=== PATIENT | male | born 1935 | race Caucasian/White ===

== ENCOUNTER 2023-11-22 14:56 | Inpatient (IN) | payer MEDICARE, SELFPAY ==
[2023-11-22] VITALS (37 sets, daily range): BP systolic 87–123; BP diastolic 51–67; BMI 25.8
[2023-11-22 10:19] LABS: Glucose - Point of Care 113 mg/dl (70-99)
[2023-11-22] MEDS: NSS 245 ML IV (10:28)
[2023-11-22] MEDS: LOW STRENGTH ASPIRIN 81 MG PO (10:29)
[2023-11-22] MEDS: PLAVIX 75 MG PO (10:29)
--- NOTE | 2023-11-22 10:55 | W.PN.CARDCBS ---
Today's Communication / Plan
-
LHC +/- PCI today
Impression / Plan
-
This is a summary, see scanned H&P
PCP: Ralf Richardson MD
CDY: Alejo Thomas MD
88 yo WM h/o CAD/CABG remote and PCI x3, HTN, HLD, IDDM, mild-mod , prostate cancer presented to [facility] 11/15 with acute angina, positive troponin. Echo with preserved EF and inferior basal WMA. He had cath 11/17 Dr. Cope with severe ISR LM stent into
left circ, and 80% stenosis at touchdown of RUBI-LAD. He is being transferred today for high risk PCI.
Impression/Plan:
#NSTEMI/CAD - cath with ISR LM stent into LCx and RUBI-LAD with 80% touchdown stenosis, [facility] today +/- PCI/shockwave
DAPT ASA/Plavix continued from home, continue BB, ARB
Cardiac rehab c/s after if PCI
f/u Martha 2-4 weeks
#HTN - continue losartan, toprol
#Dyslipidemia - LDL 33 continue atorvastatin 40mg
#IDDM - Check a1c, continue home insulin and add SSI
#LACEY - resolved Cr 1.4 on arrival, improved to 1.1 after IV hydration, monitor trends post cath
#Prostate Cancer
#L eye blindness
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
Progress Note - Box Office Attendant
Subjective
Date of Service: November 22, 2023
denies cp, sob
Objective
Vital Signs and I&O:
Vital Signs
Temp Pulse Resp BP Pulse Ox
97.4 F 83 19 123/65 100
11/22/23 10:23 11/22/23 10:37 11/22/23 10:23 11/22/23 10:23 08/23/24 10:23
Vital Signs
Temp Pulse Resp BP Pulse Ox
97.4 F 83 19 123/65 100
11/22/23 10:23 11/22/23 10:37 11/22/23 10:23 11/22/23 10:23 11/22/23 10:23
Intake & Output
11/20/23 11/21/23 11/22/23 11/23/23
06:59 06:59 06:59 06:59
Intake Total 245 / 245
Balance 245 / 245
Physical Exam
Physical Exam
NAD, AOX3
S1, S2, RRR, II/ NAOMI
CTAB, non labored
SNTND bsx4
[2023-11-22 13:24] LABS: ACT-LR - POC 313 Seconds (116-155)
[2023-11-22 14:11] LABS: ACT-LR - POC 223 Seconds (116-155)
--- NOTE | 2023-11-22 14:35 | ITS.CL.ANGIO ---
Loaf Counter - Angioplasty
Angioplasty
Procedure Report:
CORONARY ANGIOPLASTY REPORT
Date of Procedure: 11/22/2023
Referring: Jonathon Cope MD
Indication: Multivessel restenosis 6 months following complex multivessel PCI
�
PROCEDURE SUMMARY:
1. Angioplasty with intravascular lithotripsy (shockwave) of left main and proximal circumflex using 3.0 x 12 shockwave balloon-the patient would only tolerate 3 treatments and the shockwave balloon could not be advanced through the entirety of the
diseased segment
2. Multiple balloon angioplasties of the proximal circumflex and distal left main including 2.0, 2.5 noncompliant, 2.75 noncompliant, 2.75 compliant, 3.0 noncompliant and 3.25 noncompliant balloon inflations
3. No attempt was made to stent this lesion. The 95% in-stent stenosis was reduced to 30-40% with balloon angioplasty and we were not able to completely treat the entire lesion effectively with shockwave IVL and therefore terminated the procedure
�
DESCRIPTION OF PROCEDURE: Access was obtained via micropuncture technique in the right femoral artery on the first attempt. A 6 Serbian sheath was placed. A 6 Serbian AL 2 guide catheter was advanced to the left coronary ostium where provided good
backup support. A short BMW wire was advanced with great difficulty through the distal left main/ostial circumflex disease and positioned in the second obtuse marginal branch. A 2.0 x 15 Euphora balloon was passed to the target location and
inflated to 14 shagufta. With each balloon inflation the patient became hypotensive requiring multiple doses of phenylephrine 100 mcg / 200 mcg. We then dilated the lesion with a 2.75 x 12 NC Euphora to 14 shagufta over the entire diseased segment. We
attempted to advance a shockwave balloon to the target location but it would not pass through the entire area of circumflex disease. This balloon was carefully removed and a guide liner was placed. A 3.0 x 8 NC Euphora was advanced and inflated to
14 shagufta. We made numerous attempts to advance the 6 Serbian guide liner into the circumflex but it would only advance to the origin of the circumflex even with a balloon inflated more distally. We then inflated a 3.25 x 8 NC Euphora to 10 shagufta and
again attempted to get the guide liner distally into the circumflex. This was not possible. The shockwave balloon was then advanced and a series of 3 treatments with 10 pulses was accomplished treating the proximal three quarters of the lesion.
The patient became markedly hypotensive with each inflation requiring phenylephrine and ultimately dopamine infusion. Further treatment with the 3.25 x 15 NC Euphora to 15 shagufta was accomplished. We were again frustrated with an inability to pass
the guide liner through the entirety of the lesion. A more supportive extrasport wire was advanced into the vessel and positioned in the mid circumflex. A 2.75 x 12 Euphora balloon was then brought in to the circumflex and inflated with the hope
that this would allow us to bring the guide liner into the mid circumflex. This was not possible. At this point it was clear that we would not be able to treat the entirety of the lesion with shockwave and therefore we made no attempt to place a
stent to the lesion. The final angiographic result was quite reasonable with 30-40% residual stenosis with normal antegrade flow in the circumflex and also in the LAD. The patient remained hypotensive and required amiodarone for a tachycardia
which appeared to be some sort of supraventricular tachycardia. Ultimately following amiodarone 150 mg his rate slowed from 145 down to about 115 and it appeared at this point that he was in atrial fibrillation. The procedure was terminated and
continued pressor support was needed with phenylephrine infusion. He will be transferred to the ICU for medical care.
�
ANTI-COAGULATION THERAPY
1:�Heparin 8000 units total
�
Closure Device Used: 6 Serbian Angio-Seal RFA
�
Radiation (mGy): 674
DAP (cm2.Gy): 58
Fluoroscopy time: 22 minutes
�
CONCLUSIONS: Successful angioplasty and partially successful treatment with shockwave IVL reducing distal left main/ostial circumflex stenosis from 95% to 30-40% severity. No attempt was made to place a stent as we were unable to treat the entirety
of the lesion with shockwave IVL.. Procedure complicated by hypotension with each balloon inflation and development of tachycardia most likely A-fib or a flutter. He required pressor support and amiodarone 150 mg for rate slowing. He will be
transferred to the ICU in guarded condition. If he is medically stable I would plan to treat his touchdown RUBI-LAD lesion with PCI in 72 hours. If he develops recurrent restenosis of the ostial circumflex location, consider Impella support for
intervention and a 7 or 8 Serbian system to maximize backup support
�
Copy to: Jonathon Cope MD, Britta Richardson MD
�
Valdez Mathis MD, [facility], [facility]
�
--- NOTE | 2023-11-22 14:38 | CON.INTV ---
Consultation
Consultation Request
Date/Time Consultation Requested: 11/22/2023 - 1428
Date/Time Consultation Performed: 11/22/2023 - 1435
Requesting Provider: AFUA Carter
Performing Provider: Alex Kirk MD
Reason for Consultation: Shock on vasopressors/NSTEMI
Medical History
-
Chief Complaint: Chest pain
History of Present Illness:
88-year-old male non-smoker with past medical history of CAD s/p CABG with history of PCI x 3, DM type II, hypertension/hyperlipidemia, aortic stenosis, GERD and non-melanoma skin cancer who presents as a transfer from [facility] for
high risk PCI. He initially presented to [facility] on 11/15 with acute angina and found to have elevated troponin. Echo reportedly showed preserved LVEF with inferior basal wall motion and valves. C on 11/17 showed severe ISR of previous left main
stent into left circumflex with 80% stenosis at the touchdown of RUBI�LAD bypass. He was transferred here for high risk PCI, with angioplasty with intravascular lithotripsy; unfortunately multiple balloon angioplasties were performed and the
proximal circumflex + distal left main were noncompliant. No attempt was made to stent the lesion however the 95% in-stent stenosis was reduced to 30-40%. He remained tachycardic and hypotensive and Natan-Synephrine drip was started. He also
developed atrial tachycardia and amiodarone 150 mg was given. Patient was transferred to the CVICU for further care and critical care services consulted for additional management/recommendations.
When I saw the patient he was resting in bed in no acute distress, sleepy but answering all questions appropriately and easily arousable to voice. He is currently in A-fib with RVR with heart rate 128, saturating 89% on room air which improved to
97% with 4 L/min nasal cannula. BP 95/57 on Natan-Synephrine at 60mcg/min. He still has some chest discomfort with right arm pain although his chest pain is improving. He denies SOB, CAMACHO, abdominal pain, nausea, back pain, fevers or chills.
Of note, patient known to [facility] cardiology service with Dr. Gu. Last office visit on 10/02/2023 due to CAD with history of DM type II, hypertension, hyperlipidemia and aortic stenosis (mild). Next office visit planned for 6
months.
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
PSHx: CABG (2007 � [facility])
Past Medical History
Past Medical History: Other (Above as per HPI)
Past Surgical History: Other (Above as per HPI)
Social History
Tobacco: Non-smoker
Alcohol: Occasional
Drug: None
Living: With Family (Daughter, son-in-law + granddaughter)
Family History
Family History: Reviewed & Not Pertinent
Allergies / Home Medications
Allergies
Allergy/AdvReac Type Severity Reaction Status Date / Time
nitrofurantoin Allergy Unknown Verified 11/22/23 09:50
pollen extracts Allergy Unknown Verified 11/22/23 09:50
Home Medications
�Medication �Instructions �Recorded �Confirmed �Last Taken �Type
acetaminophen 325 mg tablet 650 mg PO Q6H PRN pain 11/22/23 11/22/23 11/22/23 08:00 History
(Tylenol)
aspirin 81 mg capsule 81 mg PO DAILY 11/22/23 11/22/23 Unknown History
atorvastatin 40 mg tablet 40 mg PO DAILY 11/22/23 11/22/23 Unknown History
clopidogrel 75 mg tablet 75 mg PO DAILY 11/22/23 11/22/23 Unknown History
insulin aspart U-100 100 unit/mL 25 - 30 unit SC AC 11/22/23 11/22/23 Unknown History
(3 mL) subcutaneous pen (Novolog
FlexPen U-100 Insulin aspart)
insulin degludec 100 unit/mL (3 15 unit SC HS 11/22/23 11/22/23 Unknown History
mL) subcutaneous pen (Tresiba
FlexTouch U-100 insulin)
losartan 25 mg tablet 12.5 mg PO DAILY 11/22/23 11/22/23 Unknown History
metoprolol succinate 50 mg 50 mg PO DAILY 11/22/23 11/22/23 Unknown History
tablet,extended release 24 hr
(Toprol XL)
multivitamin 1 tab PO DAILY 11/22/23 11/22/23 Unknown History
pantoprazole 20 mg tablet,delayed 20 mg PO DAILY 11/22/23 11/22/23 Unknown History
release
Review of Systems
-
History Source: Patient
All other systems: Negative unless noted
Vitals / Labs / Diagnostic Testing
Vital Signs
Temp Pulse Resp BP Pulse Ox
97.4 F 83 19 123/65 100
11/22/23 10:23 11/22/23 10:37 11/22/23 10:23 11/22/23 10:23 11/22/23 10:23
Diagnostic Testing:
Physical Exam
-
HEENT: Normocephalic and Anicteric
Cardiovascular: Irregular Rhythm (Irregularly irregular), Peripheral Edema (Negative) and Other (Tachycardic)
Respiratory: Wheeze (Negative), Rales (Bilateral anterior lung pratt (L >R)), Rhonchi (Negative) and Non-Labored Respirations
GI: Soft, Non Distended, Non Tender and Normal Bowel Sounds
Neurology: Tremors (Negative) and Other (Lethargic but easily arousable to voice and answering all questions appropriate)
Skin: Warm and Dry
General: Respiratory Distress (Negative), Comfortable, Fever (Negative), Chills (Negative) and Sweats (Negative)
Assessment
-
Assessment: 88-year-old M non-smoker with a PMHx CAD s/p CABG with history of PCI x 3, DM type II, HTN/HLD, mild aortic stenosis, GERD and non-melanoma skin cancer who presents as a transfer from [facility] for high risk PCI. He
initially presented to [facility] on 11/15 with acute angina and found to have elevated troponin. Echo reportedly showed preserved LVEF with inferior basal wall motion and valves. [facility] on 11/17 showed severe ISR of previous left main stent into left
circumflex with 80% stenosis at the touchdown of RUBI�LAD bypass. He was transferred here for high risk PCI, with IV-shockwave therapy + balloon angioplasty. Stent placement not attempted, and he was tachycardic and hypotensive with Natan-Synephrine
drip started and given amiodarone 150mg. Patient transferred to CVICU for further care and critical care services consulted for additional management/recommendations.
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
Impression:
#NSTEMI with inferobasal wall motion abnormalities s/p [facility] on 11/18/2023 with severe in-stent restenosis of LM-stent into left circumflex and 80% stenosis at touchdown of RUBI�LAD bypass --> unsuccessful PCI today
#Tachyarrhythmia due to new onset atrial fibrillation with RVR
#Acute respiratory failure with hypoxia on supplemental oxygen suspected to be from acute decompensated heart failure
#MV-CAD s/p CABG with Hx of PCI x3
#GERD
#DM type II
#Hypertension
#Hyperlipidemia
#Mild aortic stenosis
#CKD
Plan:
- Continue vasopressors with Natan-Synephrine maintaining MAP >65
- Continue supplemental oxygen and titrate to maintain SpO2 >94%
- Cardiology on board --> recs appreciated
- DAPT with ASA + plavix; continue high intensity statin with goal LDL <70
- Start heparin gtt
- Check stat labs including CBC, CMP, Mg, PO4, troponin and lactate
- Start amiodarone infusion with goal HR<110
- Check stat CXR to assess lung parenchyma
- if pt volume overloaded then keep net negative fluid balance as tolerated
- Replete electrolytes with K>4, Mg>2
- Maintain euglycemia with goal BG 140-180 with ISS + lantus (half the dose of lantus unless starts ADA diet)
- Check TTE
- prn nebulized bronchodilators - not currently bronchospastic
- Incentive spirometer encouraged
- Continue PPI (home med)
- DVT ppx
Critical care statement: A total of 40 minutes of critical care time was provided for this patient today. This includes management of unstable vital signs, evaluation of the patient at bedside, reviewing the patient's pertinent medical records
including radiographs, microbiology, laboratory evaluations, and discussion with primary team, consultants, pharmacy, nutrition, physical therapy, case management, charge nurse, critical care nursing, and respiratory therapy.
[2023-11-22 15:31] LABS: Hematocrit 33.8 % (39.0-52.0); Hemoglobin 11.8 g/dL (13.0-18.0); Mean Corp Hgb Conc. 34.9 g/dL (33.0-37.0); Mean Corpuscular Hgb 33.6 pg (27.0-31.0); Mean Corpuscular Volume 96.3 fL (80.0-94.0); Platelet Count 161 10^3/uL (130-400); Red Blood Cell Count 3.51 10^6/uL (4.70-6.10); Red Cell Dist. Width 13.6 % (11.5-14.5); White Blood Cell Count 9.6 10^3/uL (4.8-10.8)
[2023-11-22 15:41] LABS: INR 1.45; PT 17.5 Sec (11.4-14.6)
--- NOTE | 2023-11-22 15:45 | PTCARENOTE ---
Addendum entered by Desi Mijares RN 11/22/23 17:17:
KAREN Kovacs at bedside, pt states CP 6/10, burning. pt states 'better than before'. per Sissy Kovacs, report if CP worsens. no new orders at this time.
Original Note:
pt report received from [facility], arrived to [facility] @~1450. oriented x4, drowsy, arousable to voice. pt blind in L eye. +glasses. A-fib on the monitor, HR 110-130s. EKG performed, KAREN Kovacs aware. SBP 80-100s. Natan gtt running as ordered. Doppler pedal
pulses. pt 89% on RA, 97% POX on 2LNC. crackles anteriorly, L>R. pt abdomen s/n, denies n/v. R groin dressing c/d/i, no s/s of bleeding or hematoma. skin dry, flaky. ecchymotic LUE. PIV x2. VAT team called to place IV for Amiodarone bolus and gtt.
see worklist for VS, I&O, and assessment.
--- NOTE | 2023-11-22 15:46 | CM ---
pricehilary phipps at [facility]- his copay is $30/month- it is in stock
[2023-11-22 15:50] LABS: Lactic Acid 1.4 mmol/L (0.7-2.0)
[2023-11-22 16:02] LABS: APTT > 200 Sec (23.4-35.0)
[2023-11-22 16:08] LABS: ALT (SGPT) 38 U/L (0-50); AST (SGOT) 60 U/L (17-59); Albumin 3.4 g/dl (3.5-5.0); Alkaline Phosphatase 157 U/L (38-126); Blood Urea Nitrogen 22 mg/dl (9-20); Calcium 8.3 mg/dl (8.4-10.2); Carbon Dioxide 21 mmol/L (22-30); Chloride 106 mmol/L (98-107); Estimated Creatinine Clearance 46 ml/min; Glucose 138 mg/dl (70-99); Magnesium 1.5 mg/dl (1.6-2.3); Sodium 139 mmol/L (135-145); Total Bilirubin 1.2 mg/dl (0.2-1.3); Total Protein 6.1 g/dl (6.3-8.2); eGFR 58.89
[2023-11-22] MEDS: NOVOLOG FLEXPEN-MODERATE RESISTANCE SC (16:09)
[2023-11-22] MEDS: CORDARONE 103 MG IV (16:09)
[2023-11-22] MEDS: CORDARONE 518 MG IV (16:28)
--- NOTE | 2023-11-22 16:28 | CM ---
spoke to pt in room, he is prev indep, lives with his daughter in a split level home with a first floor set up and no steps to enter. he has a cane to use if needed. plan is for dc to home when medically stable.
--- NOTE | 2023-11-22 17:14 | PTCARENOTE ---
Addendum entered by Desi Mijares RN 11/22/23 17:18:
EKG performed on SR.
Original Note:
Amiodarone bolus given, pt converted to SR w/ occ PVCs @1612, SILVER BUFFER Fermín. Amiodarone gtt running as ordered. daughter Reyna at bedside, pt ring given to Reyna to take home. pt remains on bedrest.
[2023-11-22] MEDS: MAGNESIUM OXIDE 500 MG PO (17:37)
[2023-11-22] MEDS: LIPITOR 40 MG PO (17:37)
--- NOTE | 2023-11-22 19:17 | PTCARENOTE ---
pt bladder scanned for 1103ml, pt unable to void in urinal. per orders, pt straight cath'd for 950ml jacqui urine. Amiodarone gtt off per Dr. Mathis.
--- NOTE | 2023-11-22 20:00 | PTCARENOTE ---
Received pt from [facility]; pt resting comfortably in bed, AAOx4 but sleepy; pt denies pain; NSR with PVCs on monitor, VSS; heart sounds audible, radial pulses palpable, DP pulse audible by doppler; b/l anterior crackles present, spo2 99% on 2 LNC;
+bs x4 quadrants, abdomen soft non tender; pt was straight cathed by [facility] @ 1840, will continue to bladder scan; left arm ecchymotic, sacral dressing clean dry, and intact, right femoral groin cath site dressing clean, dry, and intact. PIV
maintained; phenylephrine gtt infusing, amiodarone gtt turned of per dr Mathis. call castañeda within reach, will continue to monitor.
--- NOTE | 2023-11-22 20:10 | PTCARENOTE ---
Pt had 9 beat run of VT @ 1945. call center receptionist [facility] general maintenance engineer was notified.
[2023-11-22] MEDS: LANTUS 0.15 UNITS SC (21:46)
[2023-11-22 21:47] LABS: Glucose - Point of Care 148 mg/dl (70-99)
[2023-11-22 21:50] LABS: APTT 32.5 Sec (23.4-35.0)
[2023-11-23] VITALS (59 sets, daily range): BP systolic 87–109; BP diastolic 46–81; BMI 24.9
--- NOTE | 2023-11-23 | PTCARENOTE ---
Pt assessment unchanged. NSR on monitor with frequent PVCs, VSS. Phenylephrine gtt is being wean, currently at 30mch/min. Pt unable to void. Bladder scanned for 441mls, straight cathed for 400mls. Pt continues to deny pain. Call castañeda within reach.
Will continue to monitor.
[2023-11-23] MEDS: NEO-SYNEPHRINE 250 IV (03:02)
[2023-11-23 03:33] LABS: Hematocrit 31.3 % (39.0-52.0); Hemoglobin 11.2 g/dL (13.0-18.0); Mean Corp Hgb Conc. 35.8 g/dL (33.0-37.0); Mean Corpuscular Volume 97.8 fL (80.0-94.0); Mean Platelet Volume 10.5 fL (7.4-10.4); Platelet Count 150 10^3/uL (130-400); Red Cell Dist. Width 13.4 % (11.5-14.5); White Blood Cell Count 7.8 10^3/uL (4.8-10.8)
[2023-11-23 03:56] LABS: ALT (SGPT) 68 U/L (0-50); AST (SGOT) 456 U/L (17-59); Albumin 2.8 g/dl (3.5-5.0); Alkaline Phosphatase 127 U/L (38-126); Blood Urea Nitrogen 24 mg/dl (9-20); Calcium 8.3 mg/dl (8.4-10.2); Carbon Dioxide 18 mmol/L (22-30); Chloride 104 mmol/L (98-107); Direct Bilirubin 0.6 mg/dl (0.0-0.4); Estimated Creatinine Clearance 55 ml/min; Glucose 284 mg/dl (70-99); HDL Cholesterol 34 mg/dl; LDL Cholesterol, Calculated 31 mg/dl; Magnesium 1.6 mg/dl (1.6-2.3); Phosphorus 4.1 mg/dl (2.5-4.5); Potassium 4.1 mmol/L (3.5-5.1); Sodium 134 mmol/L (135-145); Total Bilirubin 1.4 mg/dl (0.2-1.3); Total Cholesterol 83 mg/dl (50-199); Total Protein 5.2 g/dl (6.3-8.2); Triglyceride 93 mg/dl (10-149); Very Low Density Lipoprotein 18 mg/dl (0-30); eGFR > 60.00
--- NOTE | 2023-11-23 04:00 | PTCARENOTE ---
Pt assessment unchanged. NSR on monitor, VSS. pt resting comfortably in bed. AM labs drawn and sent. EKG done. Episode of VT @ 0044, technical solutions director CBC cards doctor made aware. Amiodarone gtt restarted. call castañeda within reach. will continue to monitor.
[2023-11-23 04:05] LABS: NT-proBNP 8900 pg/ml
--- NOTE | 2023-11-23 05:00 | PTCARENOTE ---
Pt bladder scanned @ 0500 for 204mls of urine. pt has no urge to void. will continue to monitor.
--- NOTE | 2023-11-23 08:02 | W.PN.INTV ---
Today's Communication / Plan
Recommendations
Up OOB as tolerated
Maintain net negative fluid balance as tolerated
Continue DAPT
Repeat high risk PCI as per cardiology
Continue with PO amio
Patient now off of vasopressors since this morning. Downgrade to IVU if patient remains hemodynamically stable off vasopressors by later this evening. Once downgraded then we will sign off.
Assessment
-
Assessment: 88-year-old M non-smoker with a PMHx CAD s/p CABG with history of PCI x 3, DM type II, HTN/HLD, mild aortic stenosis, GERD and non-melanoma skin cancer who presents as a transfer from [facility] for high risk PCI. He
initially presented to [facility] on 11/15 with acute angina and found to have elevated troponin. Echo reportedly showed preserved LVEF with inferior basal wall motion and valves. [facility] on 11/17 showed severe ISR of previous left main stent into left
circumflex with 80% stenosis at the touchdown of RUBI�LAD bypass. He was transferred here for high risk PCI, with IV-shockwave therapy + balloon angioplasty. Stent placement not attempted, and he was tachycardic and hypotensive with Natan-Synephrine
drip started and given amiodarone 150mg. Patient transferred to CVICU for further care and critical care services consulted for additional management/recommendations.
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
Impression:
#NSTEMI with inferobasal wall motion abnormalities s/p [facility] on 11/18/2023 with severe in-stent restenosis of LM-stent into left circumflex and 80% stenosis at touchdown of RUBI�LAD bypass --> unsuccessful PCI on 11/22/2023
#Tachyarrhythmia due to new onset atrial fibrillation with RVR - now rate controlled
#Acute respiratory failure with hypoxia suspected to be from acute decompensated heart failure --> improved as he is now on room air
#Acute HFrEF with global hypokinesis (seen on TTE from 11/22/2023)
#Transaminitis
#Elevated troponin due to NSTEMI in the setting of recent coronary intervention
#MV-CAD s/p CABG with Hx of PCI x3
#GERD
#DM type II
#Hypertension
#Hyperlipidemia
#Mild aortic stenosis
#CKD
Plan:
- Vasopressors have successfully weaned off as of this morning
- Keep MAP >65
- He is also on room air; maintain SpO2 >94%
- Cardiology on board --> recs appreciated
- DAPT with ASA + plavix; continue high intensity statin with goal LDL <70
- he is now off heparin gtt
- Continue PO amio with goal HR<110
- Keep net negative fluid balance as tolerated
- Replete electrolytes with K>4, Mg>2
- Maintain euglycemia with goal BG 140-180 with ISS + lantus (half the dose of lantus unless starts ADA diet)
- prn nebulized bronchodilators - not currently bronchospastic
- Incentive spirometer encouraged
- Continue PPI (home med)
- DVT ppx
If patient remains hemodynamically stable later this evening, downgrade out of CVICU to to IVU level of care. This will be confirmed by cardiology service. If patient remains CVICU status then we will continue to follow. Once downgraded then we
will sign off. Please call back if there are any additional questions or concerns.
Total time spent today was 75 minutes for this encounter. Time includes reviewing laboratory test/imaging results, reviewing pertinent medical records, obtaining and reviewing medical history, performing an appropriate exam, ordering medications,
tests and procedures. Time also includes documentation of this encounter, coordinating patient care and communicating with other healthcare professionals. Total time does not include separately billed tests performed on this date of service.
Subjective Dataa
Subjective Data
Date of Service:
Date of Service: November 23, 2023
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
Subjective:
Patient seen and evaluated today at bedside. Weaned off Natan-Synephrine this morning at around 930. Currently BP is 91/51, heart rate 96 and saturating 99% on room air. Afebrile overnight. He is resting comfortably in bed in no acute distress.
Review of Systems
General: Other (Negative unless mentioned above)
Objective Data
Data Reviewed
Vital Signs / I&O / Oxygen:
Vital Signs
Temp Pulse Resp BP Pulse Ox
98.5 F 85 23 100/51 100
11/23/23 09:39 11/23/23 09:30 11/23/23 09:30 11/23/23 09:30 11/23/23 09:30
Intake and Output
11/22/23 11/23/23 11/24/23
06:59 06:59 06:59
Intake Total 1208.0 / 1208.0 25.7 / 25.7
Output Total 1350 / 1350
Balance -142.0 / -142.0 25.7 / 25.7
SaO2 100
Nasal Cannula flow liters per 2
minute
Physical Exam
General: Respiratory Distress (negative), Fever (negative), Chills (negative) and Sweats (negative)
HEENT: Normocephalic and Anicteric
Cardiovascular: Irregular Rhythm (Irregularly irregular) and Peripheral Edema (negative)
Respiratory: Wheeze (negative), Crackles (Anterior lung pratt bilaterally (L >R)), Rhonchi (negative) and Non-Labored Respirations
GI: Soft, Non Distended, Non Tender and Normal Bowel Sounds
Neurology: Tremors (negative) and Other (Sleeping but easily arousable and answering all questions appropriately)
Skin: Warm, Dry and Jaundice (negative)
Labs/Micro/Reports
Lab Data
11/23/23 03:22
11/23/23 03:22
Laboratory Results
11/22/23 11/22/23
15:19 21:24
PT 17.5 H
INR 1.45
APTT > 200 H* 32.5
--- NOTE | 2023-11-23 08:30 | PTCARENOTE ---
Assumed care of patient at 0700. Pt is awake, alert, and oriented. No complaints of pain. Pt remains SR with HR 80's. BP 93/54 MAP 67. Pulse oximetry 99% on 2L nasal cannula. Pt having ongoing urinary retention. Right groin site CDI. Pedal pulses
present with Doppler. Pt remains on Natan at 30mcg/min and amio at 0.5mg/min.
[2023-11-23] MEDS: PROTONIX 20 MG PO (09:26)
[2023-11-23] MEDS: PLAVIX 75 MG PO (09:26)
[2023-11-23] MEDS: LOW STRENGTH ASPIRIN 81 MG PO (09:27)
--- NOTE | 2023-11-23 09:33 | W.PN.CD ---
Today's Communication / Plan
-
-Weaning of pressors
-On amiodarone drip. Will switch from IV to p.o. today.
-Continue monitoring on the telemetry in CVICU.
-Plan for PCI next week.
Impression / Plan
-
PCP: Ralf Richardson MD
CDY: Alejo Thomas MD
88 yo WM h/o CAD/CABG remote and PCI x3, HTN, HLD, IDDM, mild-mod , prostate cancer presented to [facility] 11/15 with acute angina, positive troponin. Echo with preserved EF and inferior basal WMA. He had cath 11/17 Dr. Cope with severe ISR LM stent into
left circ, and 80% stenosis at touchdown of RUBI-LAD. He is being transferred today for high risk PCI.
Impression/Plan:
#NSTEMI/CAD
- cath with ISR LM stent into LCx and RUBI-LAD with 80% touchdown stenosis,
- s/p PCI/shockwave - 11/22/23
-Successful angioplasty and partially successful treatment with shockwave IVL reducing distal left main/ostial circumflex stenosis from 95% to 30-40% severity
- Hypotensive and stent was not deployed
- plan to treat his touchdown RUBI-LAD lesion with PCI - next week prior to discharge.
- DAPT ASA/Plavix continued from home, continue BB, ARB
- Cardiac rehab c/s after if PCI
- f/u Martha 2-4 weeks
#VT
- NSVT and frequent PVCs noted
- On Amiodarone that was stopped but recurrent VT
- Switch to PO today
- Plan to likely stop after completely revascularized.
#HTN
- Holding losartan, toprol
- On Natan - weaning of
- With ventricular ectopy, we will start metoprolol 25 mg twice daily
#Dyslipidemia
- LDL 31 continue atorvastatin 40mg
#IDDM - Check a1c, continue home insulin and add SSI
#LACEY - resolved Cr 1.4 on arrival, improved to 1.1 after IV hydration, monitor trends post cath
#Prostate Cancer
#L eye blindness
#R toe ulcer - wound care eval at [facility], keep dry and [employer], f/u podiatry as outpt
Physical Exam
Vital Signs/Labs
Vital Signs
Temp Pulse Resp BP Pulse Ox
98.1 F 79 24 92/50 99
11/23/23 04:00 11/23/23 08:00 11/23/23 08:00 11/23/23 05:45 11/23/23 08:00
11/22/23 11/23/23 11/24/23
06:59 06:59 06:59
Actual Weight 78.8 kg
11/23/23 03:22
11/23/23 03:22
PT 17.5 Sec (11.4-14.6) H 11/22/23 15:19
INR 1.45 11/22/23 15:19
APTT 32.5 Sec (23.4-35.0) 11/22/23 21:24
Magnesium 1.6 mg/dl (1.6-2.3) 11/23/23 03:22
Triglycerides 93 mg/dl (10-149) 11/23/23 03:22
LDL Cholesterol, Calc 31 mg/dl 11/23/23 03:22
VLDL Cholesterol, Calc 18 mg/dl (0-30) 11/23/23 03:22
HDL Cholesterol 34 mg/dl 11/23/23 03:22
11/23/23
03:22
Ppc-T-Ivhjifiewsx Pept 8900
LAB Results
11/22/23 11/22/23
15:17 21:24
Troponin I 1.440 H* 21.400 H* D
Physical Exam
Constitutional: No acute distress and Comfortable
EENT: Anicteric and Moist mucous membranes
Cardiovascular: Rhythm & rate is regular, Pedal edema is absent, JVD pressure is normal and Systolic murmur present
Respiratory: Respiratory effort normal, Wheeze Absent and Crackles Absent
GI: Soft, Non tender and Normal bowel sounds
Neuro/Psych: Alert, Oriented and AO x 3
Data Reviewed
-
Date of Service: November 23, 2023
Medical Decision Making: Reviewed Test Results, Independent Historian Assessment and Test Interpretation
EKG: Tracing Personally Visualized and interpreted
Echo: Report Reviewed by me
Labs: Labs Reviewed by me
Old Records: Reviewed
Critical Care Time (in minutes): 61
[2023-11-23] MEDS: PACERONE 200 MG PO ×2 (10:20→19:41)
[2023-11-23] MEDS: NOVOLOG FLEXPEN-MODERATE RESISTANCE 1 UNITS SC ×2 (10:23→18:08)
[2023-11-23 10:26] LABS: Glucose - Point of Care 169 mg/dl (70-99)
[2023-11-23 11:53] LABS: Glycohemoglobin (HgbA1c) 6.7 % (4.0-5.6)
--- NOTE | 2023-11-23 12:00 | PTCARENOTE ---
Amiodarone gtt d/c'd and transitioned to PO amiodarone per order. Natan gtt titrated off at 0930. BP 94/52 MAP 65. Pt with ongoing urinary retention. Morelos catheter now in place per order for acute retention.
--- NOTE | 2023-11-23 16:30 | PTCARENOTE ---
Pt remains off all gtts. Remains SR/ST with HR 80's-100. BP 93/62 MAP 72. Pulse oximetry 98% on room air. No complaints of pain.
[2023-11-23] MEDS: NOVOLOG FLEXPEN-MODERATE RESISTANCE SC (18:03)
[2023-11-23 18:04] LABS: Glucose - Point of Care 190 mg/dl (70-99)
[2023-11-23] MEDS: LIPITOR 40 MG PO (18:04)
--- NOTE | 2023-11-23 20:59 | PTCARENOTE ---
Received pt resting in bed, AAOx3. No complaints at this time. Denies pain. VALADEZ but weak. ST on tele, HR 100-110s. BP 90s/50s. Remains off dianelys gtt. Dr. Zimmerman notified- orders to hold Toprol tonight- will monitor. DP/PT pulses by doppler. R femoral
site dsg c/d/i, soft, nontender. On RA. Spo2 97%. Lungs CTA but dim at bases. Hypoactive bowel sounds. Tolerating diet, ate about 50% of dinner. Quintana cath draining jacqui urine. Small amt. blood from insertion site-cleaned, will monitor. Pt. bathed
with CHG, assisted w/ mouth care, quintana care provided. Call castañeda in reach
[2023-11-23 21:36] LABS: Glucose - Point of Care 300 mg/dl (70-99)
[2023-11-23 21:40] LABS: Glucose - Point of Care 262 mg/dl (70-99)
--- NOTE | 2023-11-23 21:55 | PTCARENOTE ---
BG = 300, recheck = 262. Dr. Zimmerman notified. Order for 4 units novolog now.
Pt. desatting to 88% while sleeping, placed on 2L NC. Now 100%.
[2023-11-23] MEDS: LANTUS 0.15 UNITS SC (22:18)
[2023-11-23] MEDS: NOVOLOG FLEXPEN 4 UNITS SC (22:19)
[2023-11-24] VITALS (21 sets, daily range): BP systolic 86–115; BP diastolic 48–68; PULSE 99–119; O2SAT 97; BMI 25.0
[2023-11-24 05:05] LABS: Hematocrit 28.3 % (39.0-52.0); Mean Corp Hgb Conc. 35.3 g/dL (33.0-37.0); Mean Corpuscular Hgb 34.4 pg (27.0-31.0); Mean Corpuscular Volume 97.3 fL (80.0-94.0); Mean Platelet Volume 10.7 fL (7.4-10.4); Platelet Count 145 10^3/uL (130-400); Red Blood Cell Count 2.91 10^6/uL (4.70-6.10); Red Cell Dist. Width 13.4 % (11.5-14.5); White Blood Cell Count 7.2 10^3/uL (4.8-10.8)
--- NOTE | 2023-11-24 05:15 | PTCARENOTE ---
Assumed care of pt from previous RN ~0130. Initial assessment as documented in work-list. Pt AAOx3. Pt sinus rhythm to sinus tach on the tele monitor. HR 90-100s. BP 80-90s/50-60s. Pt on 2 L NC. POX 100%. Quintana catheter intact and draining yellow
urine. Small amount of blood noted at quintana catheter insertion site. Right femoral groin site CDI. Ordered labs drawn and sent. Pt repositioned in bed. Call castañeda within reach.
--- NOTE | 2023-11-24 05:20 | PTCARENOTE ---
No improvement in L sided weakness with BP control. 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 No repeat CT ordered at this time. Continue to monitor. BP 140s/70s on cardene- titrated to off at this time, will monitor and titrate PRN. Pt. without complaints.
[2023-11-24 05:26] LABS: Blood Urea Nitrogen 29 mg/dl (9-20); Calcium 8.6 mg/dl (8.4-10.2); Carbon Dioxide 21 mmol/L (22-30); Chloride 107 mmol/L (98-107); Estimated Creatinine Clearance 46 ml/min; Glucose 209 mg/dl (70-99); Magnesium 1.9 mg/dl (1.6-2.3); Phosphorus 2.6 mg/dl (2.5-4.5); Potassium 4.4 mmol/L (3.5-5.1); Sodium 136 mmol/L (135-145); eGFR 58.89
[2023-11-24] MEDS: PACERONE 200 MG PO ×2 (07:55→22:13)
[2023-11-24] MEDS: PROTONIX 20 MG PO (07:55)
[2023-11-24] MEDS: PLAVIX 75 MG PO (07:55)
[2023-11-24] MEDS: LOW STRENGTH ASPIRIN 81 MG PO (07:55)
[2023-11-24] MEDS: NOVOLOG FLEXPEN-MODERATE RESISTANCE 3 UNITS SC (07:56)
[2023-11-24 07:58] LABS: Glucose - Point of Care 233 mg/dl (70-99)
--- NOTE | 2023-11-24 08:11 | PTCARENOTE ---
Assumed care of patient at 0700. Pt is awake, alert, and oriented. No complaints of pain. Pt remains SR with HR 90's. BP 95/51 MAP 65. Pulse oximetry 100% on room air. Pt tolerating PO diet. Morelos catheter in place draining yellow urine. Right groin
site remains CDI. Pedal pulses present with Doppler. Pt remains off all gtts at this time. Pt washed faced and brushed teeth this morning. Currently eating breakfast.
--- NOTE | 2023-11-24 08:21 | W.PN.CD ---
Today's Communication / Plan
-
-N.p.o. after midnight.
-Possible PCI with stenting in a.m.
Impression / Plan
-
PCP: Ralf Richardson MD
CDY: Alejo Thomas MD
88 yo WM h/o CAD/CABG remote and PCI x3, HTN, HLD, IDDM, mild-mod , prostate cancer presented to [facility] 11/15 with acute angina, positive troponin. Echo with preserved EF and inferior basal WMA. He had cath 11/17 Dr. Cope with severe ISR LM stent into
left circ, and 80% stenosis at touchdown of RUBI-LAD. He is being transferred today for high risk PCI.
Impression/Plan:
#NSTEMI/CAD
- cath with ISR LM stent into LCx and RUBI-LAD with 80% touchdown stenosis,
- s/p PCI/shockwave - 11/22/23
-Successful angioplasty and partially successful treatment with shockwave IVL reducing distal left main/ostial circumflex stenosis from 95% to 30-40% severity
- Hypotensive and stent was not deployed
- plan to treat his touchdown RUBI-LAD lesion with PCI - next week prior to discharge.
- DAPT ASA/Plavix continued from home, continue BB, ARB
- Cardiac rehab c/s after if PCI
- f/u Martha 2-4 weeks
#VT
- NSVT and frequent PVCs noted
- On Amiodarone that was stopped but recurrent VT
- Switch to PO today
- Plan to likely stop after completely revascularized.
- Metoprolol 25 mg twice a day ordered. However patient remains hypotensive and beta-blockers are held. We will decrease dose to 12.5 mg today
#HTN
- Holding losartan, toprol
- On Natan -off now.
- With ventricular ectopy, continue amiodarone. Will decrease Toprol 12.5 mg twice daily
#Dyslipidemia
- LDL 31 continue atorvastatin 40mg
#IDDM - Check a1c, continue home insulin and add SSI
#LACEY - resolved Cr 1.4 on arrival, improved to 1.1 after IV hydration, monitor trends post cath
#Prostate Cancer
#L eye blindness
#R toe ulcer - wound care eval at [facility], keep dry and VERONICA, f/u podiatry as outpt
Physical Exam
Vital Signs/Labs
Vital Signs
Temp Pulse Resp BP Pulse Ox
97.6 F 91 19 95/51 100
11/24/23 07:52 11/24/23 07:52 11/24/23 07:52 11/24/23 07:37 11/24/23 07:52
11/23/23 11/24/23 11/25/23
06:59 06:59 06:59
Actual Weight 78.8 kg 79 kg
11/24/23 04:50
11/24/23 04:50
PT 17.5 Sec (11.4-14.6) H 11/22/23 15:19
INR 1.45 11/22/23 15:19
APTT 32.5 Sec (23.4-35.0) 11/22/23 21:24
Magnesium 1.9 mg/dl (1.6-2.3) 11/24/23 04:50
Triglycerides 93 mg/dl (10-149) 11/23/23 03:22
LDL Cholesterol, Calc 31 mg/dl 11/23/23 03:22
VLDL Cholesterol, Calc 18 mg/dl (0-30) 11/23/23 03:22
HDL Cholesterol 34 mg/dl 11/23/23 03:22
11/23/23
03:22
Nps-Z-Wmkjcwcsqsn Pept 8900
LAB Results
11/22/23 11/22/23
15:17 21:24
Troponin I 1.440 H* 21.400 H* D
Physical Exam
Constitutional: No acute distress and Comfortable
EENT: Anicteric and Moist mucous membranes
Cardiovascular: Rhythm & rate is regular, Pedal edema is absent, JVD pressure is normal and Systolic murmur absent
Respiratory: Respiratory effort normal, Lungs clear to auscul. and Wheeze Absent
GI: Soft, Distention absent, Non tender and Normal bowel sounds
Neuro/Psych: Alert, Oriented and AO x 3
Other: Cath Site
Data Reviewed
-
Date of Service: November 24, 2023
Medical Decision Making: Reviewed Test Results, Independent Historian Assessment and Test Interpretation
EKG: Tracing Personally Visualized and interpreted
Echo: Report Reviewed by me
Medical Tests (PFT, Pathology etc): Image Personally Visualized and interpreted
Labs: Labs Reviewed by me
Old Records: Reviewed
[2023-11-24 11:57] LABS: Glucose - Point of Care 291 mg/dl (70-99)
[2023-11-24] MEDS: NOVOLOG FLEXPEN-MODERATE RESISTANCE 5 UNITS SC ×2 (11:57→17:24)
--- NOTE | 2023-11-24 12:15 | PTCARENOTE ---
Pt OOB to chair with PT/OT. Remains SR/ST with HR 90's-100. While working with PT HR increased to 120's briefly. BP currently 100/63 MAP 75. Pt remains on room air, pulse oximetry 98%. No complaints of chest pain.
--- NOTE | 2023-11-24 16:40 | PTCARENOTE ---
Pt with no changes in assessment. Pt remains SR/ST with HR 90's-104. BP 103/56 MAP 72. Pulse oximetry 100% on room air. No complaints of chest pain. Morelos catheter remains in place draining yellow urine. Pt with some blood at Morelos insertion site,
no blood in urine, pt reports no complaints of discomfort.
[2023-11-24] MEDS: LIPITOR 40 MG PO (17:24)
[2023-11-24 17:28] LABS: Glucose - Point of Care 282 mg/dl (70-99)
[2023-11-24] MEDS: LANTUS SC (22:00)
[2023-11-24] MEDS: TOPROL XL 12.5 MG PO (22:13)
[2023-11-25] VITALS (31 sets, daily range): BP systolic 85–121; BP diastolic 50–77; PULSE 102–115; BMI 25.1
[2023-11-25 04:57] LABS: Hematocrit 28.2 % (39.0-52.0); Hemoglobin 10.2 g/dL (13.0-18.0); Mean Corp Hgb Conc. 36.2 g/dL (33.0-37.0); Mean Corpuscular Hgb 33.9 pg (27.0-31.0); Mean Corpuscular Volume 93.7 fL (80.0-94.0); Mean Platelet Volume 10.6 fL (7.4-10.4); Platelet Count 154 10^3/uL (130-400); Red Blood Cell Count 3.01 10^6/uL (4.70-6.10); Red Cell Dist. Width 13.7 % (11.5-14.5); White Blood Cell Count 7.2 10^3/uL (4.8-10.8)
[2023-11-25 05:19] LABS: Blood Urea Nitrogen 32 mg/dl (9-20); Calcium 8.6 mg/dl (8.4-10.2); Carbon Dioxide 22 mmol/L (22-30); Chloride 107 mmol/L (98-107); Estimated Creatinine Clearance 50 ml/min; Glucose 221 mg/dl (70-99); Magnesium 1.8 mg/dl (1.6-2.3); Potassium 4.2 mmol/L (3.5-5.1); Sodium 137 mmol/L (135-145); eGFR > 60.00
[2023-11-25 07:54] LABS: ACT-LR - POC > 397 Seconds (116-155)
[2023-11-25 07:54] LABS: ACT-LR - POC > 397 Seconds (116-155)
[2023-11-25] MEDS: PACERONE 200 MG PO (07:57)
[2023-11-25] MEDS: PROTONIX 20 MG PO (07:57)
[2023-11-25] MEDS: TOPROL XL 12.5 MG PO ×2 (07:57→20:09)
[2023-11-25] MEDS: LOW STRENGTH ASPIRIN 81 MG PO (07:58)
[2023-11-25] MEDS: PLAVIX 75 MG PO (07:58)
[2023-11-25] MEDS: NOVOLOG FLEXPEN-MODERATE RESISTANCE SC (07:58)
--- NOTE | 2023-11-25 09:15 | PTCARENOTE ---
Patient to recyclable materials collector accompanied by recyclable materials collector RN for possible high risk stenting procedure with Dr. Alexander. Report given to LISA Helms.
--- NOTE | 2023-11-25 09:16 | W.PN.CD ---
Today's Communication / Plan
-
PCI to RUBI-LAD; post-procedure recs to follow
Impression / Plan
-
PCP: Ralf Richardson MD
CDY: Alejo Thomas MD
88 yo WM h/o CAD/CABG remote and PCI x3, HTN, HLD, IDDM, mild-mod , prostate cancer presented to [facility] 11/15 with acute angina, positive troponin. Echo with preserved EF and inferior basal WMA. He had cath 11/17 Dr. Cope with severe ISR LM stent into
left circ, and 80% stenosis at touchdown of RUBI-LAD. Now s/p POBA to LM-LCx with Shockwave 11/21. He was stable over the weekend and today is referred for PCI to the RUBI-LAD touchdown.
Impression/Plan:
#NSTEMI/CAD
- cath with ISR LM stent into LCx and RUBI-LAD with 80% touchdown stenosis
- Successful angioplasty and partially successful treatment with shockwave IVL reducing distal left main/ostial circumflex stenosis from 95% to 30-40% severity
- pending RUBI touchdown PCI today
- DAPT ASA/Plavix continued, continue BB, ARB
- Cardiac rehab c/s
- f/u Martha 2-4 weeks
#VT
- NSVT and frequent PVCs noted
- On Amiodarone that was stopped but recurrent VT
- now on PO amio
- Plan to likely stop after completely revascularized
- Metoprolol 25 mg twice a day ordered
#HTN
- Holding losartan, toprol
- On Natan -off now.
- With ventricular ectopy, continue amiodarone. Will decrease Toprol 12.5 mg twice daily
#Dyslipidemia
- LDL 31 continue atorvastatin 40mg
#IDDM - A1c 6.7, continue home insulin and add SSI
#LACEY - resolved Cr 1.4 on arrival, improved to 1.1 after IV hydration, monitor trends post cath
#Prostate Cancer
#L eye blindness
#R toe ulcer - wound care eval at [facility], keep dry and VERONICA, f/u podiatry as outpt
Physical Exam
Vital Signs/Labs
Vital Signs
Temp Pulse Resp BP Pulse Ox
37.5 C 94 18 101/61 97
11/25/23 07:56 11/25/23 07:56 11/25/23 07:56 11/25/23 07:56 11/25/23 07:56
11/24/23 11/25/23 11/26/23
06:59 06:59 06:59
Actual Weight 79 kg 79.2 kg
11/25/23 04:47
11/25/23 04:47
PT 17.5 Sec (11.4-14.6) H 11/22/23 15:19
INR 1.45 11/22/23 15:19
APTT 32.5 Sec (23.4-35.0) 11/22/23 21:24
Magnesium 1.8 mg/dl (1.6-2.3) 11/25/23 04:47
Triglycerides 93 mg/dl (10-149) 11/23/23 03:22
LDL Cholesterol, Calc 31 mg/dl 11/23/23 03:22
VLDL Cholesterol, Calc 18 mg/dl (0-30) 11/23/23 03:22
HDL Cholesterol 34 mg/dl 11/23/23 03:22
11/23/23
03:22
Kzm-S-[id number] Pept 8900
LAB Results
11/22/23 11/22/23 11/25/23
15:17 21:24 04:47
Troponin I 1.440 H* 21.400 H* D 22.300 H*
Physical Exam
Constitutional: No acute distress and Comfortable
Cardiovascular: Rhythm & rate is regular, Pedal edema is absent, Systolic murmur absent and Diastolic murmur absent
Respiratory: Respiratory effort normal and Lungs clear to auscul.
Neuro/Psych: Alert, Oriented and AO x 3
Data Reviewed
-
Date of Service: November 25, 2023
Medical Decision Making: Reviewed Test Results
EKG: Tracing Personally Visualized and interpreted and Report Reviewed by me
Echo: Report Reviewed by me
X-Ray/CT/US/MRI/NUC/PET: Report Reviewed by me
Medical Tests (PFT, Pathology etc): Image Personally Visualized and interpreted and Report Reviewed by me
Labs: Labs Reviewed by me
[2023-11-25 10:01] LABS: ACT-LR - POC 298 Seconds (116-155)
[2023-11-25 10:25] LABS: ACT-LR - POC 314 Seconds (116-155)
--- NOTE | 2023-11-25 10:57 | ITS.CL.ANGIO ---
Miller Helper - Angioplasty
Angioplasty
Procedure Report:
CARDIAC CATHETERIZATION REPORT
Date of Procedure: 11/25/2023
Referring: Dr. Jonathon Cope
INDICATION: Multivessel restenosis 6 months following complex multi-vessel PCI; ischemic cardiomyopathy with severely reduced EF
PROCEDURE:
1. Bypass graft angiography
2. PCI with stent to the RUBI-LAD bypass graft anastomosis
ACCESS:
6 [place] distal left radial artery
CATHETERS:
6 [place] MARLON guide catheter
HEMODYNAMIC DATA
AO 93/49 (68) mmHg
CORONARY ANGIOGRAPHY
RUBI-LAD: taken as a pedicle with anastomosis to the distal LAD, supplying antegrade and retrograde flow to the LAD and subsequent collaterals to the RCA. There is severe stenosis at the RUBI-LAD touchdown, as well as an area of moderate-severe
stenosis in the distal LAD just distal to the touchdown.
INTERVENTION - PCI to the RUBI-LAD touchdown
Via left distal radial access, the RUBI was engaged with a 6F MARLON guide catheter. After administration of heparin to achieve ACT>250s, the distal LAD was wired with a Runthrough wire. Initial lesion preparation was performed with a 2.0x12 mm balloon
with full expansion and improvement of flow. IVUS was performed and demonstrated a 2.0 mm distal LAD reference diameter and 2.75 mm RUBI reference diameter. A 2.0x18 mm [place] JUAN RAMON was selected and deployed with distal overlap of the prior
stent to cover the area of stenosis in the distal LAD. Next, post-dilation of the RUBI segment of the stents back to the proximal edge was performed with a 2.5x8 mm NC. Final angiographic result was excellent. Final IVUS demonstrated full stent
apposition and expansion without edge dissection. There was angiographic suggestion of mild narrowing proximal to the proximal stent edge. This was demonstrated by IVUS to be extrinsic compression of the RUBI near the anastomotic site, with no
evidence of coronary disease in this segment. The wire and guide were removed and a TR band place. The patient was take to the cardiac recovery unit in stable condition.
Closure Device: TR band
Radiation (mGy): 1645.00
DAP (cm2.Gy): 52.1247
Fluoroscopy time (minutes): 9.6
CONCLUSIONS
1. Severe ISR of the prior RUBI-LAD anastomosis stent, as well as moderate-severe disease in the distal LAD just distal to the stent edge.
2. Successful IVUS-guided and optimized PCI of the RUBI-LAD anastomosis extending into the distal LAD with a 2.0x18 mm [place] JUAN RAMON, post-dilated proximally with a 2.5x8 mm NC balloon. Excellent result without complication.
RECOMMENDATIONS:
1. Expectant management after cardiac catheterization via distal left radial approach.
2. DAPT with ASA/Plavix for at least 1 year, longer if tolerated
3. Aggressive secondary prevention of CAD with high intensity statin and goal LDL<55
4. GDMT for ischemic cardiomyopathy with severely reduced EF
Copy to: Jonathon Cope MD; Britta Richardson MD
Socrates Alexander MD, PhD
--- NOTE | 2023-11-25 12:00 | PTCARENOTE ---
Patient received from the manager cath lab awake and alert. NSR 91. Left hand TR band on. Morelos to gravity, bleeding around the catheter, yellow urine. Right great toe black ulcer, small black distally to the the right great toe, pulse are week b/l, PVD leg
brown discoloration of his legs, and trace right knee swelling. B/L heels pink, foams applied, elevated on pillows. Sacral foam CDI, protection only.
[2023-11-25 12:59] LABS: Glucose - Point of Care 187 mg/dl (70-99)
[2023-11-25] MEDS: NOVOLOG FLEXPEN-MODERATE RESISTANCE 1 UNITS SC (13:08)
--- NOTE | 2023-11-25 13:13 | CM ---
Addendum entered by Zhane Dias RN 11/25/23 16:17:
I spoke with the patient and his daughter on SNF placement. Patient and his daughter [facility]. [facility] does not accept [employer]. Waiting on bed availability and insurance acceptance. CM to follow
Original Note:
Chart reviewed. Patient is independent of ADLS, lives with his daughter in a 2 STH, 1st floor set up, ambulates with a SPC. PT evaluation recommending SNF. Patient is interested. Patient's daughter to come in this afternoon. CM to follow up
with the patient's daughter on facilities. Plan is for the patient to go to SNF when medically stable. CM to follow
--- NOTE | 2023-11-25 17:06 | PTCARENOTE ---
Patient out of bed in the chair. Left wrist/hand dressing CDI, Morelos to gravity pale yellow urine, tolerated lunch, call castañeda in reach
[2023-11-25 17:41] LABS: Glucose - Point of Care 302 mg/dl (70-99)
[2023-11-25] MEDS: LIPITOR 40 MG PO (18:00)
[2023-11-25] MEDS: NOVOLOG FLEXPEN-MODERATE RESISTANCE 7 UNITS SC (18:00)
[2023-11-25 22:03] LABS: Glucose - Point of Care 288 mg/dl (70-99)
[2023-11-25] MEDS: LANTUS 0.15 UNITS SC (22:13)
[2023-11-25] MEDS: MAGNESIUM OXIDE 500 MG PO (23:19)
[2023-11-26] VITALS (18 sets, daily range): BP systolic 85–112; BP diastolic 56–99
--- NOTE | 2023-11-26 00:11 | PTCARENOTE ---
Received patient for the night in the chair. Assisted patient to the bed, x2 with a rolling walker, patient was dyspneic on exertion/dyspneic at rest. L hand cath site dressing CDI, surrounding ecchymosis. SR/ST with a BBB on the monitor. Spoke with
KASSIDY Rojo regarding patients respiratory status, 2L O2 applied and patient repositioned upright in bed. SpO2 98-99%. Patient reports slight relief. Mag repleted. Patient without complaints at this time. Call castañeda within reach.
[2023-11-26 04:03] LABS: Hematocrit 29.2 % (39.0-52.0); Hemoglobin 10.4 g/dL (13.0-18.0); Mean Corp Hgb Conc. 35.6 g/dL (33.0-37.0); Mean Corpuscular Hgb 33.9 pg (27.0-31.0); Mean Corpuscular Volume 95.1 fL (80.0-94.0); Mean Platelet Volume 10.7 fL (7.4-10.4); Platelet Count 180 10^3/uL (130-400); Red Blood Cell Count 3.07 10^6/uL (4.70-6.10); Red Cell Dist. Width 13.5 % (11.5-14.5); White Blood Cell Count 9.1 10^3/uL (4.8-10.8)
[2023-11-26 04:18] LABS: Blood Urea Nitrogen 35 mg/dl (9-20); Calcium 8.6 mg/dl (8.4-10.2); Carbon Dioxide 19 mmol/L (22-30); Chloride 106 mmol/L (98-107); Estimated Creatinine Clearance 46 ml/min; Glucose 259 mg/dl (70-99); Magnesium 1.8 mg/dl (1.6-2.3); Potassium 4.8 mmol/L (3.5-5.1); Sodium 136 mmol/L (135-145); eGFR 58.89
[2023-11-26 07:38] LABS: Glucose - Point of Care 253 mg/dl (70-99)
--- NOTE | 2023-11-26 07:54 | PTCARENOTE ---
BNP added to morning labs
[2023-11-26] MEDS: LOW STRENGTH ASPIRIN 81 MG PO (08:22)
[2023-11-26] MEDS: PLAVIX 75 MG PO (08:22)
[2023-11-26] MEDS: PROTONIX 20 MG PO (08:22)
[2023-11-26] MEDS: TOPROL XL 12.5 MG PO ×2 (08:22→19:45)
[2023-11-26] MEDS: MAGNESIUM OXIDE 500 MG PO ×2 (08:22→19:45)
[2023-11-26] MEDS: NOVOLOG FLEXPEN-MODERATE RESISTANCE 5 UNITS SC ×2 (08:23→18:34)
[2023-11-26 08:44] LABS: NT-proBNP 24900 pg/ml
--- NOTE | 2023-11-26 08:52 | PTCARENOTE ---
blood cultures sent and CXR completed.
--- NOTE | 2023-11-26 09:08 | PTCARENOTE ---
Assumed care at 0700. Patient compliant of overnight chills and shortness of breath, requiring oxygen at 2 liters NC. B/L cackles at bases right>left. POX 98% on 2 liters, dyspneic with activity and talking. Mildly anxious. NSR BBB HR 90-100, BP
103/60. HOB elevated, tolerated breakfast. Call castañeda in reach
[2023-11-26] MEDS: LASIX 40 MG IV (09:50)
--- NOTE | 2023-11-26 10:09 | PTCARENOTE ---
40 mg IV Lasix given
--- NOTE | 2023-11-26 10:33 | W.PN.CD ---
Addendum entered and electronically signed by Socrates Alexander MD 11/26/23 17:07:
Patient continues to feel subjectively short of breath with rigors. No objective fevers. Cultures of blood and urine obtained. Discussed with hospitalist consultation service who will evaluate patient for transfer. In mean time, giving empiric
treatment for hospital acquired pneumonia with vanc/zosyn.
Original Note:
Today's Communication / Plan
-
concern for developing sepsis vs. volume overload; give 40 IV lasix, trend cbc and blood cultures
Impression / Plan
-
PCP: Ralf Richardson MD
CDY: Alejo Thomas MD
88 yo WM h/o CAD/CABG remote and PCI x3, HTN, HLD, IDDM, mild-mod , prostate cancer presented to [facility] 11/15 with acute angina, positive troponin. Echo with preserved EF and inferior basal WMA. He had cath 11/17 Dr. Cope with severe ISR LM stent into
left circ, and 80% stenosis at touchdown of RUBI-LAD. Now s/p POBA to LM-LCx with Shockwave 11/21 and PCI to the RUBI-LAD touchdown 11/24.
Overnight, noted subjective chills and this morning worsening shortness of breath. Chest x-ray concerning for increased pulmonary edema vs. pneumonia. No white count or fever noted.
IMPRESSION/PLAN:
#Dypnea and rigors
- CXR concerning for possible infection vs. volume
- labs not suggestive infection (normal white count, no fevers)
--> follow up blood cultures
--> diuresis with 40 IV lasix, trend I/O
--> follow CBC/CMP
#NSTEMI/CAD
- Successful angioplasty and partially successful treatment with shockwave IVL reducing distal left main/ostial circumflex stenosis from 95% to 30-40% severity 11/21
- Successful PCI with JUAN RAMON to the RUBI-LAD touchdown 11/24
- DAPT ASA/Plavix continued, continue BB, ARB
- Cardiac rehab as outpatient
- f/u Martha 2-4 weeks
# Ischemic cardiomyopathy with severely reduced EF
- possible component of acute on chronic heart failure today with concern for volume on chest x-ray
- will need aggressive GDMT titration as outpatient; no changes today given concern for developing sepsis
# NSVT
- NSVT and frequent PVCs noted prior to revascularization
- status post PO amio (stopped now that completely revascularized)
- cont. metop 12.5 PO BID
#Dyslipidemia
- LDL 31 continue atorvastatin 40mg
#IDDM - A1c 6.7, continue home insulin and add SSI
#LACEY - resolved Cr 1.4 on arrival, improved to 1.1 after IV hydration, stable today
#Prostate Cancer
#L eye blindness
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
Physical Exam
Vital Signs/Labs
Vital Signs
Temp Pulse Resp BP Pulse Ox
36.8 C 95 22 105/61 98
11/26/23 07:23 11/26/23 10:00 11/26/23 07:23 11/26/23 09:50 11/26/23 08:00
11/25/23 11/26/23 11/27/23
06:59 06:59 06:59
Actual Weight 79.2 kg
11/26/23 03:12
11/26/23 03:12
PT 17.5 Sec (11.4-14.6) H 11/22/23 15:19
INR 1.45 11/22/23 15:19
APTT 32.5 Sec (23.4-35.0) 11/22/23 21:24
Magnesium 1.8 mg/dl (1.6-2.3) 11/26/23 03:12
Triglycerides 93 mg/dl (10-149) 11/23/23 03:22
LDL Cholesterol, Calc 31 mg/dl 11/23/23 03:22
VLDL Cholesterol, Calc 18 mg/dl (0-30) 11/23/23 03:22
HDL Cholesterol 34 mg/dl 11/23/23 03:22
11/23/23 11/26/23
03:22 03:12
Bkc-N-Dgijslbhaux Pept 8900 [id number]
LAB Results
11/25/23 11/25/23
04:47 10:30
Troponin I 22.300 H* 18.600 H*
Physical Exam
Constitutional: Other (short of breath, moderately toxic appearing)
Cardiovascular: Rhythm & rate is regular and Pedal edema is absent
Respiratory: Labored respirations and Other (decreased breath sounds but no will rales/rhonchi)
Neuro/Psych: Alert, Oriented and AO x 3
Other: Cath Site ([facility])
cd
Data Reviewed
-
Date of Service: November 26, 2023
Medical Decision Making: Reviewed Test Results, Tests Ordered and Test Interpretation
EKG: Tracing Personally Visualized and interpreted and Report Reviewed by me
X-Ray/CT/US/MRI/NUC/PET: Image Personally Visualized and interpreted and Report Reviewed by me
Labs: Labs Reviewed by me and Labs Ordered by me
--- NOTE | 2023-11-26 11:22 | PTCARENOTE ---
Morelos removed, #25 condom catheter placed.
--- NOTE | 2023-11-26 11:49 | CM ---
Chart reviewed. Patient is independent of ADLS, lives with his daughter in a 2 STH, 1st floor set up, ambulates with a SPC. Referrals sent to [facility], [facility]. [facility] does not accept insurance. [facility] is OON and
will cost $0 for Day 1-20, $100 21-100. Patient is agreeable to cost. Plan is for the patient to go to SNF will medically stable. CM to follow
[2023-11-26 12:56] LABS: Glucose - Point of Care 238 mg/dl (70-99)
[2023-11-26] MEDS: NOVOLOG FLEXPEN-MODERATE RESISTANCE 3 UNITS SC (13:06)
--- NOTE | 2023-11-26 13:24 | PTCARENOTE ---
Patient sitting up, seems less short of breath than earlier, oxygen at 2 liters NC. Ordering his lunch, call castañeda in reach
--- NOTE | 2023-11-26 16:54 | PTCARENOTE ---
No urine output since [place] removal. Straight cath for 700 cc of pale yellow urine. UA and cutlure sent. Patient does have some chills. Afebrile, occasional dry cough. No shortness of breath at rest
[2023-11-26] MEDS: LIPITOR 40 MG PO (17:09)
[2023-11-26 17:17] LABS: Glucose - Point of Care 257 mg/dl (70-99)
--- NOTE | 2023-11-26 17:36 | PHA.VAN.IN ---
Assessment
- Assessment
Renal Function: Appears elevated from baseline (11/23/23 baseline scr = 1.0)
Concomitant Antimicrobials: ZOSYN
- Previous Dosing Experience
Previous Regimen: NONE
AUC Dosing Plan
- Dosing Variables
Dosing Weight (kg): 79.2
Dosing CrCl (ml/min): 46
Vd coefficient (L/kg): 0.7
- Empiric Dosing
Initial / Loading Dose: 2GM
Maintenance Regimen: 1250MG IV Q24H
Estimated AUC (mcg*h/mL): 546
Estimated Peak (mcg*h/mL): 35.2
Estimated Trough (mcg/ml): 13.5
Estimated Half Life (H): 16.3
Pharmacokinetics Vancomycin I
- -
Patient Age: 88
Patient Sex: Male
Vancomycin Day #: 1
Indication: Pulmonary/Respiratory (sepsis)
Requesting Provider: MICHELLE
Height / Weight:
Height 5 ft 10 in
Actual Weight 79.2 kg
- Vital Signs / Lab Results
Temp Pulse Resp BP Pulse Ox
97.8 F 94 16 99/69 100
11/26/23 14:57 11/26/23 15:00 11/26/23 14:57 11/26/23 14:55 11/26/23 14:57
Lab Results - Hematology
11/24/23 11/25/23 11/26/23
04:50 04:47 03:12
WBC 7.2 7.2 9.1
Lab Results - Chemistry
11/24/23 11/25/23 11/26/23
04:50 04:47 03:12
BUN 29 H 32 H 35 H
Creatinine 1.2 1.1 1.2
Estimated Creat Clear 46 50 46
[2023-11-26] MEDS: VANCOCIN 540 MG IV (18:32)
[2023-11-26 19:11] LABS: Urine Albumin Negative (Neg - Trace); Urine Bilirubin Negative (Negative); Urine Glucose Negative (Negative); Urine Ketone Negative (Negative); Urine Leukocyte Negative (Negative); Urine Nitrite Negative (Negative); Urine Occult Blood Negative (Negative); Urine Urobilinogen Negative (Neg - 1+)
[2023-11-26 19:14] LABS: Urine Character Clear (Clear); Urine Color Yellow
[2023-11-26] MEDS: ZOSYN 100 IV (21:31)
[2023-11-26] MEDS: BENADRYL 25 MG IV (22:24)
[2023-11-26 22:34] LABS: Glucose - Point of Care 327 mg/dl (70-99)
[2023-11-26] MEDS: DECADRON 4 MG IV (22:41)
[2023-11-26] MEDS: LANTUS 0.15 UNITS SC (22:44)
[2023-11-26] MEDS: PEPCID 20 MG IV (22:45)
[2023-11-26] MEDS: NSS (PRESERVATIVE FREE) 8 ML IV (22:46)
[2023-11-26] MEDS: NOVOLOG FLEXPEN 7 UNITS SC (22:51)
--- NOTE | 2023-11-26 23:01 | W.PN.UPDATE ---
Update Note
Progress Note Update
-came in urgently @ 10:25 pm to evaluate pt for likely allergic reaction to Zosyn. He got started on Vanco and Zosyn earlier for possible PNA. Pt developed itching all over and swelling in the face after getting Zosyn tonight. Noted swelling of
eyelids and face redness. SBP 108, pOx 98% on 2L, hr low 90s nsr. Pt denies difficulty breathing or tongue swelling. No stridor or wheeze noted. Has rales in the lungs throughout. Vanco and Zosyn are discontinued. Pt states less itching once Zosyn
was stopped. Has cough (not new).
-discussed with Dr. Brewer- gave 25 mg iv Benadryl, 20 iv Pepcid and 4 mg iv Decadron.
-monitor glucose, getting Novolog and Lantus
-will monitor closely.
--- NOTE | 2023-11-26 23:30 | PTCARENOTE ---
Pt. complaining of b/l arm and back itching and facial flushing approx. 5 minutes after hanging first dose IV Zosyn (of note, loading dose of vancomycin finished infusing 15 minutes prior to this). Denied any SOB, cough present. Zosyn infusion shut
off immediately. BP 112/99, HR 90's (NSR), pulse ox 91-92% on 2LNC. No wheezing, crackles present bilaterally. Face flushed and eyelids slightly swollen (but getting progressively wore), no hives or rash assessed. Dr. Brewer notified, orders
for Benadryl 25 mg IV obtained and administered. LISA Bello, also at bedside, additional orders for Decadron IV and Pepcid received and administered. Itchiness and facial flushing subsided, eyelids less swollen. Pt. continues to deny any
SOB, sleeping when left alone. Continuous pulse ox on. Monitoring.
[2023-11-27] VITALS (25 sets, daily range): BP systolic 89–111; BP diastolic 53–82; PULSE 80; O2SAT 98; BMI 25.0
[2023-11-27] MEDS: TYLENOL 650 MG PO ×2 (03:37→21:50)
--- NOTE | 2023-11-27 03:49 | PTCARENOTE ---
Any signs & symptoms of earlier antibiotic reaction gone, pt. states he feels much better. No longer flushed, eyelids normal, no rash. Incontinent of moderate amounts of urine x 2, bladder scanned at 2330 for 247 ml. Condom catheter placed for
more accurate I&O's.
[2023-11-27 03:51] LABS: % Basophils 0.2 % (0-2); % Eosinophils 0.5 % (0-6); % Immature Granulocytes 0.5 % (0-0.5); % Lymphocytes 7.4 % (20.5-51.1); % Monocytes 5.8 % (1.7-9.3); % Neutrophils 85.6 % (42.2-75.2); Absolute Lymphocytes 0.6 10^3/uL (1.2-3.4); Absolute Monocytes 0.5 10^3/uL (0.1-0.6); Absolute Neutrophils 7.4 10^3/uL (1.4-6.5); Hematocrit 30.7 % (39.0-52.0); Hemoglobin 10.9 g/dL (13.0-18.0); Mean Corp Hgb Conc. 35.5 g/dL (33.0-37.0); Mean Corpuscular Hgb 34.5 pg (27.0-31.0); Mean Corpuscular Volume 97.2 fL (80.0-94.0); Mean Platelet Volume 10.8 fL (7.4-10.4); Nucleated Red Blood Cells % 0 % (-); Platelet Count 192 10^3/uL (130-400); Red Blood Cell Count 3.16 10^6/uL (4.70-6.10); Red Cell Dist. Width 13.3 % (11.5-14.5); White Blood Cell Count 8.6 10^3/uL (4.8-10.8)
[2023-11-27 04:21] LABS: ALT (SGPT) 45 U/L (0-50); AST (SGOT) 66 U/L (17-59); Albumin 2.8 g/dl (3.5-5.0); Alkaline Phosphatase 153 U/L (38-126); Blood Urea Nitrogen 37 mg/dl (9-20); Calcium 8.6 mg/dl (8.4-10.2); Carbon Dioxide 23 mmol/L (22-30); Chloride 104 mmol/L (98-107); Estimated Creatinine Clearance 46 ml/min; Glucose 239 mg/dl (70-99); Potassium 4.3 mmol/L (3.5-5.1); Sodium 136 mmol/L (135-145); Total Bilirubin 1.5 mg/dl (0.2-1.3); Total Protein 5.4 g/dl (6.3-8.2); eGFR 58.89
[2023-11-27 07:47] LABS: Glucose - Point of Care 326 mg/dl (70-99)
[2023-11-27] MEDS: NOVOLOG FLEXPEN-MODERATE RESISTANCE 7 UNITS SC (08:42)
[2023-11-27] MEDS: LOW STRENGTH ASPIRIN 81 MG PO (08:53)
[2023-11-27] MEDS: MAGNESIUM OXIDE 500 MG PO ×2 (08:53→20:03)
[2023-11-27] MEDS: TOPROL XL 12.5 MG PO ×2 (08:53→20:03)
[2023-11-27] MEDS: PLAVIX 75 MG PO (08:53)
[2023-11-27] MEDS: PROTONIX 20 MG PO (08:53)
--- NOTE | 2023-11-27 08:54 | W.PN.CD ---
Addendum entered and electronically signed by Niall Mcnamara MD 11/27/23 09:56:
CDI inquiry/chart correction:
- LACEY has been ruled out and a more appropriate diagnosis for this patient's condition is dehydration.
Original Note:
Today's Communication / Plan
-
- Patient was started on Vanco/Zosyn yesterday, and appeared to have an allergic reaction to Zosyn; ID consulted.
- Given Lasix 40 IV once yesterday; will hold off on additional diuresis as the patient appears to be compensated, and his blood pressure is low.
Impression / Plan
-
PCP: Ralf Richardson MD
CDY: Alejo Thomas MD
88 yo WM with CAD/CABG remote and PCI x3, HTN, HLD, IDDM, mild-mod , prostate cancer presented to [facility] 11/15 with acute angina, positive troponin. Echo with preserved EF and inferior basal WMA. He had cath 11/17 Dr. Cope with severe ISR LM stent into
left circ, and 80% stenosis at touchdown of RUBI-LAD. Now s/p POBA to LM-LCx with Shockwave 11/21 and PCI to the RUBI-LAD touchdown 11/24. Chest x-ray concerning for increased pulmonary edema vs. pneumonia. No white count or fever noted.
IMPRESSION/PLAN:
# Suspected pneumonia versus acute CHF (EF 20-25%):
- CXR concerning for possible infection vs. volume
- labs not suggestive infection (normal white count, no fevers)
- follow up blood cultures
- Patient was started on Vanco/Zosyn yesterday, and appeared to have an allergic reaction to Zosyn; ID consulted.
#NSTEMI/CAD
- Successful angioplasty and partially successful treatment with shockwave IVL reducing distal left main/ostial circumflex stenosis from 95% to 30-40% severity 11/21
- Successful PCI with JUAN RAMON to the RUBI-LAD touchdown 11/24
- DAPT ASA/Plavix continued, continue BB, ARB
- Cardiac rehab as outpatient
- f/u Martha 2-4 weeks
# Ischemic cardiomyopathy with severely reduced EF (20-25%)
- possible component of acute on chronic heart failure today with concern for volume on chest x-ray
- will need aggressive GDMT titration as outpatient; no changes for now, given concern for developing sepsis.
- Given Lasix 40 IV once yesterday; will hold off on additional diuresis as the patient appears to be compensated, and his blood pressure is low.
# NSVT
- NSVT and frequent PVCs noted prior to revascularization
- status post PO amio (stopped now that completely revascularized)
- Continue metoprolol succinate 12.5 PO BID
- Telemetry stable.
#Dyslipidemia
- LDL 31 continue atorvastatin 40mg
#IDDM - A1c 6.7, continue home insulin and add SSI
#LACEY - resolved Cr 1.4 on arrival, improved to 1.1 after IV hydration, stable today
#Prostate Cancer
#L eye blindness
#R toe ulcer - wound care eval at [facility], keep dry and POLE MAKER, f/u podiatry as outpt
Physical Exam
Vital Signs/Labs
Vital Signs
Temp Pulse Resp BP Pulse Ox
97.7 F 86 18 99/64 99
11/27/23 07:42 11/27/23 03:00 11/27/23 07:42 11/27/23 03:00 11/27/23 07:42
11/26/23 11/27/23 11/28/23
06:59 06:59 06:59
Actual Weight 79 kg
11/27/23 03:20
11/27/23 03:20
PT 17.5 Sec (11.4-14.6) H 11/22/23 15:19
INR 1.45 11/22/23 15:19
APTT 32.5 Sec (23.4-35.0) 11/22/23 21:24
Magnesium 1.8 mg/dl (1.6-2.3) 11/26/23 03:12
Triglycerides 93 mg/dl (10-149) 11/23/23 03:22
LDL Cholesterol, Calc 31 mg/dl 11/23/23 03:22
VLDL Cholesterol, Calc 18 mg/dl (0-30) 11/23/23 03:22
HDL Cholesterol 34 mg/dl 11/23/23 03:22
11/23/23 11/26/23
03:22 03:12
Ard-C-Ynrpgxjlzti Pept 8900 [id number]
LAB Results
11/25/23 11/25/23
04:47 10:30
Troponin I 22.300 H* 18.600 H*
Physical Exam
Constitutional: No acute distress and Comfortable
EENT: Anicteric
Cardiovascular: Rhythm & rate is regular, Pedal edema is absent, Systolic murmur present (2/6) and S1S2 is normal
Respiratory: Respiratory effort normal, Wheeze Absent and Other (Decreased bibasilar breath sounds)
GI: Soft
Neuro/Psych: AO x 3
Other: Skin (Warm, dry)
Data Reviewed
-
Date of Service: November 27, 2023
EKG: Tracing Personally Visualized and interpreted (Telemetry: Sinus rhythm)
Echo: Report Reviewed by me (EF 20-25%, global hypokinesis)
Labs: Labs Reviewed by me
--- NOTE | 2023-11-27 09:45 | PN.CDI ---
CDI
- -
CDI:
Physician Documentation Request
Admit Date: 11/22/23 14:56
Dear Cardiology,
Patient admitted for pneumonia v CHF.
11/26 Cardiology PN: 'LACEY - resolved Cr 1.4 on arrival, improved to 1.1 after IV hydration, stable today'
The purpose of this query is not to question medical judgement, but to ensure the accuracy of the conditions reported for your patient.
There is either a lack of clinical support for this condition in the current medical record, or there is a lack of recognized standard criteria to support the condition.
Criteria for LACEY*
1 Increase in serum creatinine by > or = to 0.3 mg/dL (> or = to 26.5 micromol/L) within 48 hours, OR
2 Increase in serum creatinine to > or = to 1.5 times baseline, which is known or presumed to have occurred within 7 days, OR
3 Urine volume < 0.5 nL/kg/hour for six hours
The request is for one of the following:
- Additional documentation to support the condition. Indicate if this is in lieu of what may be considered standard criteria, and/or support why the standard criteria may not be present for this patient.
- A more appropriate diagnosis, reflecting the patient's condition
-LACEY remains a known or suspected condition for this patient and is further supported by (include additional documentation in the medical record)
- LACEY has been ruled out and a more appropriate diagnosis for this patient's condition is .
- Other (please specify)
- Unable to determine
Use of terms such as suspected, likely, concern for, or probable (associated with a specific diagnosis that is being evaluated, monitored, or treated as if it exists) are acceptable and can be coded in the inpatient setting, when documented at the
time of discharge.
Thank you,
Devi Sharif RN, BSN
CDI Specialist
Available via [place] text
Please use your independent medical judgment in providing your response.
--- NOTE | 2023-11-27 10:18 | PTCARENOTE ---
Patient sent to CT on a stretcher, able to transfer using a rolling walker. Patient returned in room using bedside commode, less shortness of breath and fatigue today, call castañeda in reach
[2023-11-27] MEDS: FLAGYL 500 MG 100 IV (10:57)
[2023-11-27] MEDS: AZACTAM 2000 MG IV (10:58)
[2023-11-27] MEDS: LASIX 40 MG IV (10:58)
[2023-11-27] MEDS: STERILE WATER FOR INJECTION 10 ML IV (11:16)
[2023-11-27 11:39] LABS: Procalcitonin 0.11 ng/ml (0.0-0.25)
[2023-11-27 13:05] LABS: Glucose - Point of Care 430 mg/dl (70-99)
--- NOTE | 2023-11-27 13:40 | CM ---
Chart reviewed. Patient is independent of ADLS, lives with his daughter in a 2 STH, 1st floor set up, ambulates with a SPC. Referrals sent to [facility], [facility]. [facility] does not accept insurance. [facility] is OON and
will cost $0 for Day 1-20, $100 21-100. Patient is agreeable to cost. Plan is for the patient to go to [facility]/SNF will medically stable. Patient with [employer], will need authorization. CM to follow
[2023-11-27 14:15] LABS: Glucose 421 mg/dl (70-99)
--- NOTE | 2023-11-27 14:34 | W.PN.HOSP.TC ---
Today's Communication/Plan
-
-trial IV lasix - with holding parameters. patents EF is 20-25% so acknowledge lower BPs; probnp [id number]
-F/u SARS-CoV-2
-Incentive edel
-Pulm consulted
-DVT ppx
-hold on abx for now, monitor fever curve, wbc
Assessment / Plan
Assessment / Plan
Physical Exam
Constitutional: NAD
Cardiovascular: Rhythm & rate is regular and Pedal edema is absent; euvolemic
Respiratory: Non Labored respirations - mild decreased breath sounds on the right
Neuro/Psych: Alert, Oriented and AO x 3
Other: Cath Site (cdi)
#Respiratory distress
� I am not convinced this is bacterial pneumonia
-Possible viral issues/IPF + Fluid overload
� The CT imaging, preliminary appears to have groundglass opacities, honeycombing on the right bases and a light atelectasis
�Incentive spirometer
� Hold on antibiotics
-Trial IV lasix
� Continue to monitor fever curve, white count, respiratory status
- If no improvement in respiratory status - can consider steroids
� SARS-CoV-2 follow-up
� Pulmonary consulted
� Procalcitonin 0.11�within normal limits
#Ischemic cardiomyopathy, acute on chronic HFrEF
� EF 20 to 25%
-bnp [id number]
� GDMT as tolerated
� IV Lasix as tolerated
#Transaminitis
� Trend
#DM II
-aic is 6.7
-hyperglycemia most likely 2/2 steroids given yesterday evening
-cont home dosing for now
-sliding scale
#NSTEMI/CAD
- angioplasty and partially successful treatment with shockwave IVL reducing distal left main/ostial circumflex stenosis from 95% to 30-40% severity 11/21
- Successful PCI with JUAN RAMON to the RUBI-LAD touchdown 11/24
- DAPT ASA/Plavix continued, continue BB, ARB
- Cardiac rehab as outpatient
- f/u Martha 2-4 weeks
#Tachyarrhythmia due to new onset atrial fibrillation with RVR - now rate controlled
#MV-CAD s/p CABG with Hx of PCI x3
#GERD
#DM type II
#Hypertension
#Hyperlipidemia
#Mild aortic stenosis
#CKD
Total time spent on today's encounter was 50 minutes which included time spent in counseling the patient/family regarding diagnosis and treatment plan as listed above, goals of care, and symptom management. Case was discussed with nursing staff,
specialists, and care coordinators/case management. All labs and imaging personally reviewed by me. Remainder the time spent in detailed review of previous records, lab data, imaging, and other medical provider documentation.
Anticipated Discharge: 24 - 48 hours
Subjective/Interval History
-
Date of Service: November 27, 2023
88-year-old M non-smoker with a PMHx CAD s/p CABG with history of PCI x 3, DM type II, HTN/HLD, mild aortic stenosis, GERD and non-melanoma skin cancer who presents as a transfer from [facility] for high risk PCI.. Echo with preserved
EF and inferior basal WMA. Now s/p POBA to LM-LCx with Shockwave 11/21 and PCI to the RUBI-LAD touchdown 11/24.. Transferred to medicine service due to worsening respiratory distress. Appears euvolemic, afebrile, no leukocytosis, or significant
productive cough. Symptoms have improved since yesterday.
Objective Data
-
Labs:
Laboratory Results
11/27/23 11/27/23
03:20 13:43
WBC 8.6
Hgb 10.9 L
Hct 30.7 L
Plt Count 192
Sodium 136
Potassium 4.3
Chloride 104
Carbon Dioxide 23
BUN 37 H
Creatinine 1.2
Glucose 239 H 421 H
Calcium 8.6
Total Bilirubin 1.5 H
AST 66 H
ALT 45
Alkaline Phosphatase 153 H
Vital Signs:
Vital Signs
Temp Pulse Resp BP Pulse Ox
97.8 F 86 20 103/62 99
11/27/23 11:12 11/27/23 11:03 11/27/23 11:12 11/27/23 11:03 11/27/23 07:42
I&O
11/26/23 11/27/23 11/28/23
06:59 06:59 06:59
Intake Total 625 / 625
Output Total 1450 / 1450 2230 / 2230 175 / 175
Balance -825 / -825 -2230 / -2230 -175 / -175
Review of Systems
-
History Source: Patient
All other systems: Not reviewed unless documented
Data Reviewed
-
Diagnostic Radiology: Image personally visualized and interpreted and Report Reviewed by me
Labs: Labs Reviewed by me
[2023-11-27] MEDS: NOVOLOG FLEXPEN-MODERATE RESISTANCE 11 UNITS SC ×2 (14:37→18:46)
--- NOTE | 2023-11-27 14:45 | PTCARENOTE ---
blood sugar RR prior to lunch. Stat gluecose 421. 11 units given, blood sugar in 2 hours
[2023-11-27] MEDS: NOVOLOG FLEXPEN-MODERATE RESISTANCE SC (14:46)
--- NOTE | 2023-11-27 14:49 | W.PN.PUL3 ---
Today's Communication / Plan
-
Re-eval for abnormal CT, likely has chronic ILD w/ superimposed CHF
Pulm edema has been worsening on prior CXRs, proBNP >20K
Would diuresis and add midodrine for BP support
Creat stable at 1.1-1.2
Outpatient pulmonary FU recommended for history of ILD
Follow daily weights/fluid restriction
Cards management ongoing post NSTEMI
Assessment
-
88-year-old M non-smoker with a PMHx CAD s/p CABG with history of PCI x 3, DM type II, HTN/HLD, mild aortic stenosis, GERD and non-melanoma skin cancer who presents as a transfer from [facility] for high risk PCI. He initially presented
to [facility] on 11/15 with acute angina and found to have elevated troponin. Echo reportedly showed preserved LVEF with inferior basal wall motion and valves. C on 11/17 showed severe ISR of previous left main stent into left circumflex with 80%
stenosis at the touchdown of RUBI�LAD bypass. He was transferred here for high risk PCI, with IV-shockwave therapy + balloon angioplasty. Stent placement not attempted, and he was tachycardic and hypotensive with Natan-Synephrine drip started and
given amiodarone 150mg. Patient transferred to CVICU for further care and critical care services consulted for additional management/recommendations.
#Acute respiratory failure with hypoxia suspected to be from acute decompensated heart failure --worsening
#NSTEMI with inferobasal wall motion abnormalities s/p [facility] on 11/18/2023 with severe in-stent restenosis of LM-stent into left circumflex and 80% stenosis at touchdown of RUBI�LAD bypass --> unsuccessful PCI on 11/22/2023
#Tachyarrhythmia due to new onset atrial fibrillation with RVR - now rate controlled
#Acute HFrEF with global hypokinesis (seen on TTE from 11/22/2023)
#Transaminitis
#Elevated troponin due to NSTEMI in the setting of recent coronary intervention
#MV-CAD s/p CABG with Hx of PCI x3
#GERD
#DM type II
#Hypertension
#Hyperlipidemia
#Mild aortic stenosis
#CKD
Chronic conditions SURGICAL ASSISTANT CERTIFIED:
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
CAD s/p CABG with Hx of PCI x3
Hypertension
Hyperlipidemia
DM type II
CKD
Mild aortic stenosis
GERD
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
Plan:
He is still on RA, no hypoxemia noted
Continue observation and add on O2 if needed
Resp distress noted, appears recovered
CT obtained showing worsening edema, CHF findings
Had not been diuresed in past few days due to creat
proBNP >20k
Reviewed last few CXRs, pulmonary edema has been progressing
CT also showing underlying ILD
He notes that he has had 'lung scarring or fibrosis' for many years now, has had 'crackling' on exam for at last 15 years
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
He is a lifelong nonsmoker
I agree this could be underlying IPF, would need OP FU for this
Would resume diuresis
Midodrine can be added to keep MAP >65
Renal consult may be beneficial if diuresis is limited by LACEY
Cardiology on board --> recs appreciated
DAPT with ASA + plavix; continue high intensity statin with goal LDL <70
He is now off heparin gtt
Continue PO amio with goal HR<110
Keep net negative fluid balance as tolerated
Replete electrolytes with K>4, Mg>2
Incentive spirometer encouraged
OOB/ambulation
Daily weights, fluid restriction
Can consider RHC if needed for volume status
We will follow
Diagnostic Data
CXR 11/26/23- Progressed findings suggesting bilateral pneumonia. Greater in the left lower lobe. Small loculated left pleural effusion. Progressed. Small right pleural effusion. Stable. Mild cardiomegaly. Stable
11/24/23- Stable pulmonary changes probable acute on chronic lung disease. Stable small bilateral pleural effusions. Mild cardiomegaly. Stable
11/22/23- There are peripheral increased reticulonodular markings within both lungs, as well as more central increased reticulonodular markings in the right midlung. There could be a background of interstitial fibrosis, but difficult to determine
with no previous comparison exam available. The more central increased reticulonodular markings in the right midlung, just superior to the minor fissure raise concern for pneumonia or pulmonary edema, possibly superimposed on a background of
interstitial fibrosis. Of note, the vessels in the left hilar region appear fairly well-defined, a finding that would be some evidence against significant active vascular congestion.
[facility] 11/22/23- CONCLUSIONS: Successful angioplasty and partially successful treatment with shockwave IVL reducing distal left main/ostial circumflex stenosis from 95% to 30-40% severity
ECHO 11/22/23- Limited study performed in photonic laboratory technician. Severely reduced left ventricular systolic function. Left ventricular ejection fraction is 20-25%. Global hypokinesis. Normal right ventricular size and function. Normal pericardium without
effusion.
No prior study available for comparison.
Total time spent today was 51 minutes for this encounter. Time includes reviewing laboratory test/imaging results, reviewing pertinent medical records, obtaining and reviewing medical history, performing an appropriate exam, ordering medications,
tests and procedures. Time also includes documentation of this encounter, coordinating patient care and communicating with other healthcare professionals. Total time does not include separately billed tests performed on this date of service.
Subjective Data
-
Date of Service:
Date of Service: November 27, 2023
Chief Complaint: Pulmonary Follow Up
Subjective:
Asked to re-eval for worsening CT findings/resp distress
He is currently on RA, sitting in chair
Objective Data
Data Reviewed
Vital Signs / I&O / Oxygen:
Vital Signs
Temp Pulse Resp BP Pulse Ox
97.8 F 86 20 103/62 99
11/27/23 11:12 11/27/23 11:03 11/27/23 11:12 11/27/23 11:03 11/27/23 07:42
Intake and Output
11/26/23 11/27/23 11/28/23
06:59 06:59 06:59
Intake Total 625 / 625
Output Total 1450 / 1450 2230 / 2230 175 / 175
Balance -825 / -825 -2230 / -2230 -175 / -175
SaO2 99
Nasal Cannula flow liters per 1
minute
Physical Exam
General: Comfortable and Other (NAD)
HEENT: Normocephalic, Anicteric and Moist Mucous Membranes
Cardiovascular: S1-S2 and Regular Rhythm
Respiratory: Crackles (R>L) and Non-Labored Respirations
GI: Soft, Non Distended and Non Tender
Neurology: Awake, Alert, Oriented, AO x 3 and No Motor Deficits
Skin: Warm, Dry, Good Color and Bruising (UE B/L)
Labs/Micro/Reports
Lab Data
11/27/23 03:20
11/27/23 13:43
Microbiology
11/26/23 16:49 Urine Urine Culture - Preliminary
NO GROWTH
11/26/23 08:17 Blood/Venous Blood Culture - Preliminary
No Growth in 24 hours- Final report to follow
11/26/23 08:17 Blood/Venous Blood Culture - Preliminary
No Growth in 24 hours- Final report to follow
[2023-11-27] MEDS: STERILE WATER FOR INJECTION IV ×2 (16:26→23:25)
[2023-11-27] MEDS: LIPITOR 40 MG PO (16:28)
[2023-11-27] MEDS: HEPARIN 5000 UNITS SC ×2 (16:28→22:54)
[2023-11-27 16:46] LABS: COVID-19 Antigen Negative (Negative)
[2023-11-27 17:51] LABS: Glucose - Point of Care 440 mg/dl (70-99)
--- NOTE | 2023-11-27 18:19 | PTCARENOTE ---
RR high blood sugar. Stat glucose collected
--- NOTE | 2023-11-27 18:48 | PTCARENOTE ---
bladder scan 860. Assisted to commode voided 800 cc and small BM.
[2023-11-27 18:52] LABS: Glucose 368 mg/dl (70-99)
[2023-11-27 21:35] LABS: Glucose - Point of Care 379 mg/dl (70-99)
[2023-11-27] MEDS: LANTUS 0.15 UNITS SC (21:50)
[2023-11-27] MEDS: NOVOLOG FLEXPEN 10 UNITS SC (21:51)
[2023-11-28] VITALS (8 sets, daily range): BP systolic 95–107; BP diastolic 58–83
[2023-11-28 00:09] LABS: Glucose - Point of Care 287 mg/dl (70-99)
[2023-11-28 05:13] LABS: Hematocrit 28.3 % (39.0-52.0); Hemoglobin 10.2 g/dL (13.0-18.0); Mean Corpuscular Hgb 34.3 pg (27.0-31.0); Mean Corpuscular Volume 95.3 fL (80.0-94.0); Mean Platelet Volume 10.5 fL (7.4-10.4); Platelet Count 207 10^3/uL (130-400); Red Blood Cell Count 2.97 10^6/uL (4.70-6.10); Red Cell Dist. Width 13.4 % (11.5-14.5); White Blood Cell Count 8.2 10^3/uL (4.8-10.8)
--- NOTE | 2023-11-28 05:21 | PTCARENOTE ---
Bladder scan for 316ml. Pt denies urgency to urinate.
[2023-11-28 05:29] LABS: ALT (SGPT) 51 U/L (0-50); AST (SGOT) 64 U/L (17-59); Albumin 2.9 g/dl (3.5-5.0); Alkaline Phosphatase 146 U/L (38-126); Blood Urea Nitrogen 52 mg/dl (9-20); Calcium 8.7 mg/dl (8.4-10.2); Carbon Dioxide 25 mmol/L (22-30); Chloride 104 mmol/L (98-107); Estimated Creatinine Clearance 42 ml/min; Glucose 213 mg/dl (70-99); Potassium 4.3 mmol/L (3.5-5.1); Sodium 138 mmol/L (135-145); Total Bilirubin 1.1 mg/dl (0.2-1.3); Total Protein 5.4 g/dl (6.3-8.2)
[2023-11-28 07:25] LABS: Glucose - Point of Care 232 mg/dl (70-99)
--- NOTE | 2023-11-28 07:45 | W.PN.CD ---
Today's Communication / Plan
-
improving, hold diuresis today and repeat cxr, hope for transition to oral diuretic tomorrow and consideration for resumption of GDMT
Impression / Plan
-
PCP: Ralf Richardson MD
CDY: Alejo Thomas MD
88 yo WM with CAD/CABG remote and PCI x3, HTN, HLD, IDDM, mild-mod , prostate cancer presented to [facility] 11/15 with acute angina, positive troponin. Echo with preserved EF and inferior basal WMA. He had cath 11/17 Dr. Cope with severe ISR LM stent into
left circ, and 80% stenosis at touchdown of RUBI-LAD. Now s/p POBA to LM-LCx with Shockwave 11/21 and PCI to the RUBI-LAD touchdown 11/24. Chest x-ray concerning for increased pulmonary edema > pneumonia. Now status post short does of abx (had
reaction to zosyn with facial swelling) and diuresis with improving respiratory status.
IMPRESSION/PLAN:
# Respiratory distress, improving
- concern for CHF exacerbation > pneumonia
- labs not suggestive infection (normal white count, no fevers), BNP elevated >20k
- Patient was started on Vanco/Zosyn and appeared to have an allergic reaction to Zosyn; ID consulted; now off abx
- examines euvolemic, Cr and BUN:Cr ratio has risen, repeat CXR today and hold additional diuresis; likely transition to oral diuretic tomorrow if Cr stable
#NSTEMI/CAD
- Successful angioplasty and partially successful treatment with shockwave IVL reducing distal left main/ostial circumflex stenosis from 95% to 30-40% severity 11/21
- Successful PCI with JUAN RAMON to the RUBI-LAD touchdown 11/24
- DAPT ASA/Plavix continued, continue BB, ARB
- Cardiac rehab as outpatient
- f/u Martha 2-4 weeks
# Ischemic cardiomyopathy with severely reduced EF (20-25%)
- possible component of acute on chronic heart failure today with concern for volume on chest x-ray
- will need aggressive GDMT titration as outpatient; no changes for now, given low blood pressure and increasing Cr
# NSVT
- NSVT and frequent PVCs noted prior to revascularization
- status post PO amio (stopped now that completely revascularized)
- Continue metoprolol succinate 12.5 PO BID
- Telemetry stable
#Dyslipidemia
- LDL 31 continue atorvastatin 40mg
#IDDM - A1c 6.7, continue home insulin and add SSI
#LACEY - continue to monitor with diuresis, slight increased today to 1.3
#Prostate Cancer
#L eye blindness
#R toe ulcer - wound care eval at [facility], keep dry and VERONICA, f/u podiatry as outpt
Physical Exam
Vital Signs/Labs
Vital Signs
Temp Pulse Resp BP Pulse Ox
36.5 C 80 20 95/62 95
11/28/23 07:20 11/28/23 06:00 11/28/23 07:20 11/28/23 04:26 11/28/23 07:20
11/27/23 11/28/23 11/29/23
06:59 06:59 06:59
Actual Weight 79 kg
11/28/23 04:47
11/28/23 04:47
PT 17.5 Sec (11.4-14.6) H 11/22/23 15:19
INR 1.45 11/22/23 15:19
APTT 32.5 Sec (23.4-35.0) 11/22/23 21:24
Magnesium 1.8 mg/dl (1.6-2.3) 11/26/23 03:12
Triglycerides 93 mg/dl (10-149) 11/23/23 03:22
LDL Cholesterol, Calc 31 mg/dl 11/23/23 03:22
VLDL Cholesterol, Calc 18 mg/dl (0-30) 11/23/23 03:22
HDL Cholesterol 34 mg/dl 11/23/23 03:22
11/23/23 11/26/23
03:22 03:12
Gos-J-Bcsxltailhr Pept [id number]
LAB Results
11/25/23
10:30
Troponin I 18.600 H*
Physical Exam
Constitutional: No acute distress, Comfortable and Confusion
Cardiovascular: Rhythm & rate is regular, Pedal edema is absent, JVD pressure is normal, Systolic murmur absent and Diastolic murmur absent
Respiratory: Respiratory effort normal, Wheeze Absent, Crackles Absent, Rhonchi Absent and Other (decreased bs )
Neuro/Psych: Alert, Oriented and AO x 3
Data Reviewed
-
Date of Service: November 28, 2023
Medical Decision Making: Reviewed Test Results and Tests Ordered
X-Ray/CT/US/MRI/NUC/PET: Report Reviewed by me
Labs: Labs Reviewed by me
[2023-11-28] MEDS: NOVOLOG FLEXPEN-MODERATE RESISTANCE 3 UNITS SC (08:54)
[2023-11-28] MEDS: LOW STRENGTH ASPIRIN 81 MG PO (08:59)
[2023-11-28] MEDS: PROTONIX 20 MG PO (09:00)
[2023-11-28] MEDS: MAGNESIUM OXIDE 500 MG PO ×2 (09:00→20:38)
[2023-11-28] MEDS: HEPARIN 5000 UNITS SC ×3 (09:00→22:39)
[2023-11-28] MEDS: PLAVIX 75 MG PO (09:00)
[2023-11-28] MEDS: TOPROL XL 12.5 MG PO ×2 (09:01→20:38)
[2023-11-28] MEDS: LASIX 40 MG IV (09:01)
--- NOTE | 2023-11-28 11:04 | W.PN.PUL3 ---
Today's Communication / Plan
-
Doing well, remains stable on RA
Ongoing diuresis per team
Outpatient pulmonary FU recommended, has seen [facility] Pulmonary in past
Discharge planning per team
Assessment
-
88-year-old M non-smoker with a PMHx CAD s/p CABG with history of PCI x 3, DM type II, HTN/HLD, mild aortic stenosis, GERD and non-melanoma skin cancer who presents as a transfer from [facility] for high risk PCI. He initially presented
to [facility] on 11/15 with acute angina and found to have elevated troponin. Echo reportedly showed preserved LVEF with inferior basal wall motion and valves. [facility] on 11/17 showed severe ISR of previous left main stent into left circumflex with 80%
stenosis at the touchdown of RUBI�LAD bypass. He was transferred here for high risk PCI, with IV-shockwave therapy + balloon angioplasty. Stent placement not attempted, and he was tachycardic and hypotensive with Natan-Synephrine drip started and
given amiodarone 150mg. Patient transferred to CVICU for further care and critical care services consulted for additional management/recommendations.
#Acute respiratory failure with hypoxia suspected to be from acute decompensated heart failure --worsening
#NSTEMI with inferobasal wall motion abnormalities s/p [facility] on 11/18/2023 with severe in-stent restenosis of LM-stent into left circumflex and 80% stenosis at touchdown of RUBI�LAD bypass --> unsuccessful PCI on 11/22/2023
#Tachyarrhythmia due to new onset atrial fibrillation with RVR - now rate controlled
#Acute HFrEF with global hypokinesis (seen on TTE from 11/22/2023)
#Transaminitis
#Elevated troponin due to NSTEMI in the setting of recent coronary intervention
#MV-CAD s/p CABG with Hx of PCI x3
#GERD
#DM type II
#Hypertension
#Hyperlipidemia
#Mild aortic stenosis
#CKD
Chronic conditions [employer]:
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
CAD s/p CABG with Hx of PCI x3
Hypertension
Hyperlipidemia
DM type II
CKD
Mild aortic stenosis
GERD
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
Plan:
He is still on RA, no hypoxemia noted
Continue observation and add on O2 if needed
Resp distress noted, appears recovered
CT obtained showing worsening edema, CHF findings
Had not been diuresed in past few days due to creat
proBNP >20k
Reviewed last few CXRs, pulmonary edema has been progressing
CT also showing underlying ILD
He notes that he has had 'lung scarring or fibrosis' for many years now, has had 'crackling' on exam for at last 15 years
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
He is a lifelong nonsmoker
I agree this could be underlying IPF, would need OP FU for this
Would resume diuresis
Midodrine can be added to keep MAP >65
Renal consult may be beneficial if diuresis is limited by LACEY
Cardiology on board --> recs appreciated
DAPT with ASA + plavix; continue high intensity statin with goal LDL <70
He is now off heparin gtt
Continue PO amio with goal HR<110
Keep net negative fluid balance as tolerated
Replete electrolytes with K>4, Mg>2
Incentive spirometer encouraged
OOB/ambulation
Daily weights, fluid restriction
He has followed with [facility] pulmonary in past
Can resume OP FU with their office
Discharge planning per team
Diagnostic Data
CXR 11/26/23- Progressed findings suggesting bilateral pneumonia. Greater in the left lower lobe. Small loculated left pleural effusion. Progressed. Small right pleural effusion. Stable. Mild cardiomegaly. Stable
11/24/23- Stable pulmonary changes probable acute on chronic lung disease. Stable small bilateral pleural effusions. Mild cardiomegaly. Stable
11/22/23- There are peripheral increased reticulonodular markings within both lungs, as well as more central increased reticulonodular markings in the right midlung. There could be a background of interstitial fibrosis, but difficult to determine
with no previous comparison exam available. The more central increased reticulonodular markings in the right midlung, just superior to the minor fissure raise concern for pneumonia or pulmonary edema, possibly superimposed on a background of
interstitial fibrosis. Of note, the vessels in the left hilar region appear fairly well-defined, a finding that would be some evidence against significant active vascular congestion.
[facility] 11/22/23- CONCLUSIONS: Successful angioplasty and partially successful treatment with shockwave IVL reducing distal left main/ostial circumflex stenosis from 95% to 30-40% severity
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 Severely reduced left ventricular systolic function. Left ventricular ejection fraction is 20-25%. Global hypokinesis. Normal right ventricular size and function. Normal pericardium without
effusion.
No prior study available for comparison.
Total time spent today was 51 minutes for this encounter. Time includes reviewing laboratory test/imaging results, reviewing pertinent medical records, obtaining and reviewing medical history, performing an appropriate exam, ordering medications,
tests and procedures. Time also includes documentation of this encounter, coordinating patient care and communicating with other healthcare professionals. Total time does not include separately billed tests performed on this date of service.
Subjective Data
-
Date of Service:
Date of Service: November 28, 2023
Chief Complaint: Pulmonary Follow Up
Subjective:
Doing well, stable on RA
No new complaints
Objective Data
Data Reviewed
Vital Signs / I&O / Oxygen:
Vital Signs
Temp Pulse Resp BP Pulse Ox
97.7 F 85 20 104/70 95
11/28/23 07:20 11/28/23 08:00 11/28/23 07:20 11/28/23 09:01 11/28/23 09:13
Intake and Output
11/27/23 11/28/23 11/29/23
06:59 06:59 06:59
Intake Total 150 / 150
Output Total 2230 / 2230 975 / 975 800 / 800
Balance -2230 / -2230 -825 / -825 -800 / -800
SaO2 95
Nasal Cannula flow liters per 1
minute
Physical Exam
General: Comfortable and Other (NAD)
HEENT: Normocephalic, Anicteric and Moist Mucous Membranes
Cardiovascular: S1-S2 and Regular Rhythm
Respiratory: Crackles (R>L) and Non-Labored Respirations
GI: Soft, Non Distended and Non Tender
Neurology: Awake, Alert, Oriented, AO x 3 and No Motor Deficits
Skin: Warm, Dry, Good Color and Bruising (UE B/L)
Labs/Micro/Reports
Lab Data
11/28/23 04:47
11/28/23 04:47
Microbiology
11/26/23 08:17 Blood/Venous Blood Culture - Preliminary
No Growth in 48 hours- Final report to follow
11/26/23 16:49 Urine Urine Culture - Final
NO GROWTH
11/26/23 08:17 Blood/Venous Blood Culture - Preliminary
No Growth in 48 hours- Final report to follow
[2023-11-28] MEDS: NOVOLOG FLEXPEN-MODERATE RESISTANCE 5 UNITS SC (13:44)
[2023-11-28 13:47] LABS: Glucose - Point of Care 276 mg/dl (70-99)
--- NOTE | 2023-11-28 14:18 | CM ---
Chart reviewed. Patient is independent of ADLS, lives with his daughter in a 2 STH, 1st floor set up, ambulates with a SPC. PT evaluation recommending SNF. Plan is for the patient to go to [facility]. Preauthorization obtained through
[employer] ref # [id number] for November 28-Dec 10 NRD Dec 11 Faxed to Diandra at [phone] P [phone]. Patient will need a wheelchair van to transfer to [facility]. CM to follow
--- NOTE | 2023-11-28 14:52 | W.PN.HOSP.TC ---
Today's Communication/Plan
-
monitor renal function, hopeful transition to PO lasix tomorrow
symptoms greatly improved
Assessment / Plan
Assessment / Plan
Physical Exam
Constitutional: NAD
Cardiovascular: Rhythm & rate is regular and Pedal edema is absent; euvolemic
Respiratory: Non Labored respirations - mild decreased breath sounds on the right
Neuro/Psych: Alert, Oriented and AO x 3
Other: Cath Site (cdi)
#Respiratory distress
� I am not convinced this is bacterial pneumonia
-Possible viral issues/IPF +/- Fluid overload
� The CT imaging, preliminary appears to have groundglass opacities, honeycombing on the right bases and a light atelectasis
�Incentive spirometer
� Hold on antibiotics
-hold further IV lasix today, can dc on po lasix tomorrow
� Continue to monitor fever curve, white count, respiratory status
- If no improvement in respiratory status - can consider steroids
� SARS-CoV-2 follow-up negative
� Pulmonary consulted - should f/u outpatinet
� Procalcitonin 0.11�within normal limits
#Probable Underlying ILD
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
-should have PFTs and further work up done outpatient
-f/u pulm outpatient
#Ischemic cardiomyopathy, acute on chronic HFrEF
� EF 20 to 25%
-bnp [id number]
� GDMT as tolerated
� IV Lasix as tolerated- hold today, dc on lasix tomorrow
#Transaminitis
� Trend
#DM II
-aic is 6.7
-hyperglycemia most likely 2/2 steroids given yesterday evening
-cont home dosing for now
-sliding scale
#NSTEMI/CAD
- angioplasty and partially successful treatment with shockwave IVL reducing distal left main/ostial circumflex stenosis from 95% to 30-40% severity 11/21
- Successful PCI with JUAN RAMON to the RUBI-LAD touchdown 11/24
- DAPT ASA/Plavix continued, continue BB, ARB
- Cardiac rehab as outpatient
- f/u Martha 2-4 weeks
#Tachyarrhythmia due to new onset atrial fibrillation with RVR - now rate controlled
#MV-CAD s/p CABG with Hx of PCI x3
#GERD
#DM type II
#Hypertension
#Hyperlipidemia
#Mild aortic stenosis
#CKD
Anticipated Discharge: Within 24 hours
Subjective/Interval History
-
Date of Service: November 28, 2023
no acute events
Objective Data
-
Labs:
Laboratory Results
11/28/23
04:47
WBC 8.2
Hgb 10.2 L
Hct 28.3 L
Plt Count 207
Sodium 138
Potassium 4.3
Chloride 104
Carbon Dioxide 25
BUN 52 H
Creatinine 1.3
Glucose 213 H
Calcium 8.7
Total Bilirubin 1.1
AST 64 H
ALT 51 H
Alkaline Phosphatase 146 H
Vital Signs:
Vital Signs
Temp Pulse Resp BP Pulse Ox
96.3 F L 80 20 100/58 97
11/28/23 12:45 11/28/23 13:00 11/28/23 12:45 11/28/23 12:42 11/28/23 13:17
I&O
11/27/23 11/28/23 11/29/23
06:59 06:59 06:59
Intake Total 150 / 150
Output Total 2230 / 2230 975 / 975 800 / 800
Balance -2230 / -2230 -825 / -825 -800 / -800
Review of Systems
-
History Source: Patient
All other systems: Not reviewed unless documented
Data Reviewed
-
Diagnostic Radiology: Image personally visualized and interpreted and Report Reviewed by me
Labs: Labs Reviewed by me
[2023-11-28] MEDS: LIPITOR 40 MG PO (16:56)
[2023-11-28 17:49] LABS: Glucose - Point of Care 339 mg/dl (70-99)
[2023-11-28] MEDS: NOVOLOG FLEXPEN-MODERATE RESISTANCE 9 UNITS SC (17:49)
--- NOTE | 2023-11-28 17:54 | PTCARENOTE ---
Right knee brace placed on pt, OOB with one assist using walker to chair and commode. Pt able to take a few steps only. Pt continent with planned trips to bedside commode, passing jacqui urine, unable to void lying in bed. Pt assisted to bathe. Pt
denies discomfort, looking forward to going to rehab. Telemetry shows sinus rhythm with BBB @80's. Sacrum pink, foam in place. Blood sugars remain in 200-300 range. Plan to transfer to via , report called.
--- NOTE | 2023-11-28 18:35 | PTCARENOTE ---
11/27- Patient transferred and oriented to unit without issue. AAOX3; pleasant. Skin: BL UE ecchymoses; foams on abrasions on upper L-back. Stage 1 with foam on sacrum. 98% on RA. Telemetry= NSR at this time. Patient denies any current needs.
[2023-11-28 22:38] LABS: Glucose - Point of Care 225 mg/dl (70-99)
[2023-11-28] MEDS: LANTUS 0.15 UNITS SC (22:39)
[2023-11-29 03:30] VITALS: BP 102/64
[2023-11-29 06:00] VITALS: BMI 25.3
[2023-11-29 07:24] LABS: Hemoglobin 10.4 g/dL (13.0-18.0); Mean Corp Hgb Conc. 35.9 g/dL (33.0-37.0); Mean Corpuscular Hgb 34.2 pg (27.0-31.0); Mean Corpuscular Volume 95.4 fL (80.0-94.0); Mean Platelet Volume 10.8 fL (7.4-10.4); Platelet Count 212 10^3/uL (130-400); Red Blood Cell Count 3.04 10^6/uL (4.70-6.10); Red Cell Dist. Width 13.6 % (11.5-14.5); White Blood Cell Count 7.6 10^3/uL (4.8-10.8)
[2023-11-29 07:35] VITALS: BP 100/59
[2023-11-29] MEDS: PROTONIX 20 MG PO (07:44)
[2023-11-29] MEDS: MAGNESIUM OXIDE 500 MG PO (07:44)
[2023-11-29] MEDS: TOPROL XL 12.5 MG PO (07:44)
[2023-11-29 07:45] LABS: Glucose - Point of Care 174 mg/dl (70-99)
[2023-11-29] MEDS: PLAVIX 75 MG PO (07:45)
[2023-11-29] MEDS: LOW STRENGTH ASPIRIN 81 MG PO (07:45)
[2023-11-29] MEDS: HEPARIN 5000 UNITS SC (07:46)
[2023-11-29] MEDS: NOVOLOG FLEXPEN-MODERATE RESISTANCE 1 UNITS SC (07:47)
[2023-11-29 07:48] LABS: ALT (SGPT) 42 U/L (0-50); AST (SGOT) 47 U/L (17-59); Albumin 2.8 g/dl (3.5-5.0); Alkaline Phosphatase 133 U/L (38-126); Blood Urea Nitrogen 49 mg/dl (9-20); Calcium 8.7 mg/dl (8.4-10.2); Carbon Dioxide 26 mmol/L (22-30); Chloride 104 mmol/L (98-107); Estimated Creatinine Clearance 46 ml/min; Glucose 144 mg/dl (70-99); Potassium 4.1 mmol/L (3.5-5.1); Sodium 137 mmol/L (135-145); Total Bilirubin 1.2 mg/dl (0.2-1.3); Total Protein 5.3 g/dl (6.3-8.2); eGFR 58.89
[2023-11-29] MEDS: LASIX 40 MG IV (07:48)
[2023-11-29 11:16] VITALS: BP 104/55
--- NOTE | 2023-11-29 11:35 | W.PN.HOSP.TC ---
Addendum entered and electronically signed by Ori Arzola MD 11/30/23 14:09:
[id number]
Original Note:
Today's Communication/Plan
-
ASA, Plavix, Statin
BB, ARB
Lasix 40mg daily
F/u PCP, Cardiology, Pulmonology outpatient
Assessment / Plan
Assessment / Plan
Physical Exam
Constitutional: NAD
Cardiovascular: Rhythm & rate is regular and Pedal edema is absent; euvolemic
Respiratory: Non Labored respirations - mild decreased breath sounds on the right
Neuro/Psych: Alert, Oriented and AO x 3
Other: Cath Site (cdi)
#Respiratory distress
� I am not convinced this is bacterial pneumonia
-Possible viral issues/IPF +/- Fluid overload
� The CT imaging, preliminary appears to have groundglass opacities, honeycombing on the right bases and a light atelectasis
�Incentive spirometer
� Hold on antibiotics
-hold further IV lasix today, can dc on po lasix
� Continue to monitor fever curve, white count, respiratory status
- If no improvement in respiratory status - can consider steroids
� SARS-CoV-2 follow-up negative
� Pulmonary consulted - should f/u outpatient; i suspect underlying pulmonary fibrosis is component of respiratory distress; will need pfts and work up outpatient
� Procalcitonin 0.11�within normal limits
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
-should have PFTs and further work up done outpatient
-f/u pulm outpatient
#Ischemic cardiomyopathy, acute on chronic HFrEF
� EF 20 to 25%
-bnp [id number]
� GDMT as tolerated
�40mg lasix daily on dc
-resume losartan, and cont BB
#Transaminitis
� Trend
#DM II
-aic is 6.7
-hyperglycemia most likely 2/2 steroids given yesterday evening
-cont home dosing for now
-sliding scale
#NSTEMI/CAD
- angioplasty and partially successful treatment with shockwave IVL reducing distal left main/ostial circumflex stenosis from 95% to 30-40% severity 11/21
- Successful PCI with JUAN RAMON to the RUBI-LAD touchdown 11/24
- DAPT ASA/Plavix continued, continue BB, ARB
- Cardiac rehab as outpatient
- f/u Martha 2-4 weeks
#Tachyarrhythmia due to new onset atrial fibrillation with RVR - now rate controlled
#MV-CAD s/p CABG with Hx of PCI x3
#GERD
#DM type II
#Hypertension
#Hyperlipidemia
#Mild aortic stenosis
#CKD
More than 30 minutes spent in discharge including
Final examination of the patient
Summarizing hospital stay
Instructions for continuing care to all relevant caregivers
Preparation of discharge records, prescriptions, and referral forms
Total time spent (35 in minutes):
Anticipated Discharge: Today
Subjective/Interval History
-
Date of Service: November 29, 2023
Feels better, no acute events overnight
Objective Data
-
Labs:
Laboratory Results
11/29/23
06:11
WBC 7.6
Hgb 10.4 L
Hct 29.0 L
Plt Count 212
Sodium 137
Potassium 4.1
Chloride 104
Carbon Dioxide 26
BUN 49 H
Creatinine 1.2
Glucose 144 H
Calcium 8.7
Total Bilirubin 1.2
AST 47
ALT 42
Alkaline Phosphatase 133 H
Vital Signs:
Vital Signs
Temp Pulse Resp BP Pulse Ox
97.7 F 88 18 104/55 97
11/29/23 11:16 11/29/23 11:16 11/29/23 11:16 11/29/23 11:16 11/29/23 11:16
I&O
11/28/23 11/29/23 11/30/23
06:59 06:59 06:59
Intake Total 150 / 150
Output Total 975 / 975 1300 / 1300
Balance -825 / -825 -1300 / -1300
Review of Systems
-
History Source: Patient
All other systems: Not reviewed unless documented
Data Reviewed
-
Diagnostic Radiology: Image personally visualized and interpreted and Report Reviewed by me
Labs: Labs Reviewed by me
[2023-11-29 11:46] LABS: Glucose - Point of Care 317 mg/dl (70-99)
--- NOTE | 2023-11-29 11:55 | CM ---
[employer] authorization obtained through [employer] ref # [id number] for November 28-Dec 10 NRD Dec 11 Faxed to Diandra at [phone] P [phone]. Patient will need a wheelchair van to transfer to [facility].
[facility] accepted pt today.
Medical nec for for wc van completed.
Spoke with dgt Reyna she agrees with alicia.IMM reviewed she agrees with alicia.
[facility]
report [phone]
fax [phone]
[facility] today
--- NOTE | 2023-11-29 12:09 | W.PN.PUL3 ---
Today's Communication / Plan
-
Doing well, stable on RA
No new complaints
Planning to go to SNF, PT/OT evals ongoing
Outpatient pulm recommended -- has seen [facility] in past
Discharge planning per team
Assessment
-
88-year-old M non-smoker with a PMHx CAD s/p CABG with history of PCI x 3, DM type II, HTN/HLD, mild aortic stenosis, GERD and non-melanoma skin cancer who presents as a transfer from [facility] for high risk PCI. He initially presented
to [facility] on 11/15 with acute angina and found to have elevated troponin. Echo reportedly showed preserved LVEF with inferior basal wall motion and valves. C on 11/17 showed severe ISR of previous left main stent into left circumflex with 80%
stenosis at the touchdown of RUBI�LAD bypass. He was transferred here for high risk PCI, with IV-shockwave therapy + balloon angioplasty. Stent placement not attempted, and he was tachycardic and hypotensive with Natan-Synephrine drip started and
given amiodarone 150mg. Patient transferred to CVICU for further care and critical care services consulted for additional management/recommendations.
#Acute respiratory failure with hypoxia suspected to be from acute decompensated heart failure --worsening
#NSTEMI with inferobasal wall motion abnormalities s/p [facility] on 11/18/2023 with severe in-stent restenosis of LM-stent into left circumflex and 80% stenosis at touchdown of RUBI�LAD bypass --> unsuccessful PCI on 11/22/2023
#Tachyarrhythmia due to new onset atrial fibrillation with RVR - now rate controlled
#Acute HFrEF with global hypokinesis (seen on TTE from 11/22/2023)
#Transaminitis
#Elevated troponin due to NSTEMI in the setting of recent coronary intervention
#MV-CAD s/p CABG with Hx of PCI x3
#GERD
#DM type II
#Hypertension
#Hyperlipidemia
#Mild aortic stenosis
#CKD
Chronic conditions SOMMELIER:
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
CAD s/p CABG with Hx of PCI x3
Hypertension
Hyperlipidemia
DM type II
CKD
Mild aortic stenosis
GERD
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
Plan:
He is still on RA, no hypoxemia noted
Continue observation and add on O2 if needed
Resp distress noted, appears recovered
CT obtained showing worsening edema, CHF findings
Had not been diuresed in past few days due to creat
proBNP >20k
Reviewed last few CXRs, pulmonary edema has been progressing
CT also showing underlying ILD
He notes that he has had 'lung scarring or fibrosis' for many years now, has had 'crackling' on exam for at last 15 years
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
He is a lifelong nonsmoker
I agree this could be underlying IPF, would need OP FU for this
Would resume diuresis
Midodrine can be added to keep MAP >65
Renal consult may be beneficial if diuresis is limited by LACEY
Cardiology on board --> recs appreciated
DAPT with ASA + plavix; continue high intensity statin with goal LDL <70
He is now off heparin gtt
Continue PO amio with goal HR<110
Keep net negative fluid balance as tolerated
Replete electrolytes with K>4, Mg>2
Incentive spirometer encouraged
OOB/ambulation
Daily weights, fluid restriction
He has followed with [facility] pulmonary in past
Can resume OP FU with their office
Discharge planning per team
Diagnostic Data
CXR 11/26/23- Progressed findings suggesting bilateral pneumonia. Greater in the left lower lobe. Small loculated left pleural effusion. Progressed. Small right pleural effusion. Stable. Mild cardiomegaly. Stable
11/24/23- Stable pulmonary changes probable acute on chronic lung disease. Stable small bilateral pleural effusions. Mild cardiomegaly. Stable
11/22/23- There are peripheral increased reticulonodular markings within both lungs, as well as more central increased reticulonodular markings in the right midlung. There could be a background of interstitial fibrosis, but difficult to determine
with no previous comparison exam available. The more central increased reticulonodular markings in the right midlung, just superior to the minor fissure raise concern for pneumonia or pulmonary edema, possibly superimposed on a background of
interstitial fibrosis. Of note, the vessels in the left hilar region appear fairly well-defined, a finding that would be some evidence against significant active vascular congestion.
[facility] 11/22/23- CONCLUSIONS: Successful angioplasty and partially successful treatment with shockwave IVL reducing distal left main/ostial circumflex stenosis from 95% to 30-40% severity
ECHO 11/22/23- Limited study performed in mushroom [employer]. Severely reduced left ventricular systolic function. Left ventricular ejection fraction is 20-25%. Global hypokinesis. Normal right ventricular size and function. Normal pericardium without
effusion.
No prior study available for comparison.
Total time spent today was 36 minutes for this encounter. Time includes reviewing laboratory test/imaging results, reviewing pertinent medical records, obtaining and reviewing medical history, performing an appropriate exam, ordering medications,
tests and procedures. Time also includes documentation of this encounter, coordinating patient care and communicating with other healthcare professionals. Total time does not include separately billed tests performed on this date of service.
Subjective Data
-
Date of Service:
Date of Service: November 29, 2023
Chief Complaint: Pulmonary Follow Up
Subjective:
Doing well, stable on RA
No new complaints
Objective Data
Data Reviewed
Vital Signs / I&O / Oxygen:
Vital Signs
Temp Pulse Resp BP Pulse Ox
97.7 F 88 18 104/55 97
11/29/23 11:16 11/29/23 11:16 11/29/23 11:16 11/29/23 11:16 11/29/23 11:16
Intake and Output
11/28/23 11/29/23 11/30/23
06:59 06:59 06:59
Intake Total 150 / 150
Output Total 975 / 975 1300 / 1300
Balance -825 / -825 -1300 / -1300
SaO2 97
Nasal Cannula flow liters per 1
minute
Physical Exam
General: Comfortable and Other (NAD)
HEENT: Normocephalic, Anicteric and Moist Mucous Membranes
Cardiovascular: S1-S2 and Regular Rhythm
Respiratory: Crackles (R>L) and Non-Labored Respirations
GI: Soft, Non Distended and Non Tender
Neurology: Awake, Alert, Oriented, AO x 3 and No Motor Deficits
Skin: Warm, Dry, Good Color and Bruising (UE B/L)
Labs/Micro/Reports
Lab Data
11/29/23 06:11
11/29/23 06:11
Microbiology
11/26/23 08:17 Blood/Venous Blood Culture - Preliminary
No Growth in 72 hours- Final report to follow
11/26/23 08:17 Blood/Venous Blood Culture - Preliminary
No Growth in 72 hours- Final report to follow
11/27/23 10:35 Nose MRSA Screen - Final
No Methicillin Resistant Staphylococcus aureus isolated.
11/26/23 16:49 Urine Urine Culture - Final
NO GROWTH
[2023-11-29 12:20] VITALS: BP 103/64; PULSE 87; O2SAT 96
--- NOTE | 2023-11-29 12:20 | W.PN.CD ---
Today's Communication / Plan
-
transition to 40 PO lasix daily with weight based augmentation instructions, restart losartan, discharge to SNF with 1 week labs close outpatient cardiology follow up
Impression / Plan
-
PCP: Ralf Richardson MD
CDY: Alejo Thomas MD
88 yo WM with CAD/CABG remote and PCI x3, HTN, HLD, IDDM, mild-mod , prostate cancer presented to [facility] 11/15 with acute angina, positive troponin. Echo with preserved EF and inferior basal WMA. He had cath 11/17 Dr. Cope with severe ISR LM stent into
left circ, and 80% stenosis at touchdown of RUBI-LAD. Now s/p POBA to LM-LCx with Shockwave 11/21 and PCI to the RUBI-LAD touchdown 11/24. Chest x-ray concerning for increased pulmonary edema > pneumonia. Now status post short does of abx (had
reaction to zosyn with facial swelling) and diuresis with improving respiratory status.
IMPRESSION/PLAN:
# Respiratory distress, improving
- concern for CHF exacerbation > pneumonia
- labs not suggestive infection (normal white count, no fevers), BNP elevated >20k
- Patient was started on Vanco/Zosyn and appeared to have an allergic reaction to Zosyn; ID consulted; now off abx
- examines euvolemic, Cr and BUN:Cr ratio has risen, received 40 IV lasix today but will transition to 40 PO daily as outpatient with weight based instructions to increase to BID if gains weight
#NSTEMI/CAD
- Successful angioplasty and partially successful treatment with shockwave IVL reducing distal left main/ostial circumflex stenosis from 95% to 30-40% severity 11/21
- Successful PCI with JUAN RAMON to the RUBI-LAD touchdown 11/24
- DAPT ASA/Plavix continued, continue BB, ARB
- Cardiac rehab as outpatient
- f/u Martha 2-4 weeks
# Ischemic cardiomyopathy with severely reduced EF (20-25%)
- possible component of acute on chronic heart failure today with concern for volume on chest x-ray
- restart home losartan 12.5 mg today
# NSVT
- NSVT and frequent PVCs noted prior to revascularization
- status post PO amio (stopped now that completely revascularized)
- Continue metoprolol succinate 12.5 PO BID
- Telemetry stable
#Dyslipidemia
- LDL 31 continue atorvastatin 40mg
#IDDM - A1c 6.7, continue home insulin and add SSI
#LACEY - continue to monitor with diuresis, slight increased today to 1.3
#Prostate Cancer
#L eye blindness
#R toe ulcer - wound care eval at [facility], keep dry and VERONICA, f/u podiatry as outpt
Physical Exam
Vital Signs/Labs
Vital Signs
Temp Pulse Resp BP Pulse Ox
36.5 C 88 18 104/55 97
11/29/23 11:16 11/29/23 11:16 11/29/23 11:16 11/29/23 11:16 11/29/23 11:16
11/28/23 11/29/23 11/30/23
06:59 06:59 06:59
Actual Weight 79.946 kg
11/29/23 06:11
11/29/23 06:11
PT 17.5 Sec (11.4-14.6) H 11/22/23 15:19
INR 1.45 11/22/23 15:19
APTT 32.5 Sec (23.4-35.0) 11/22/23 21:24
Magnesium 1.8 mg/dl (1.6-2.3) 11/26/23 03:12
Triglycerides 93 mg/dl (10-149) 11/23/23 03:22
LDL Cholesterol, Calc 31 mg/dl 11/23/23 03:22
VLDL Cholesterol, Calc 18 mg/dl (0-30) 11/23/23 03:22
HDL Cholesterol 34 mg/dl 11/23/23 03:22
11/23/23 11/26/23
03: 03:12
Ekl-B-Edrpnbtdwac Pept [id number]
Physical Exam
Constitutional: No acute distress, Comfortable and Confusion
Cardiovascular: Rhythm & rate is regular, Pedal edema is absent and JVD pressure is normal
Respiratory: Respiratory effort normal and Lungs clear to auscul.
Neuro/Psych: Alert, Oriented and AO x 3
Data Reviewed
-
Date of Service: November 29, 2023
Medical Decision Making: Reviewed Test Results and Review of Case with other Provider
Labs: Labs Reviewed by me
[2023-11-29 12:27] VITALS: BP 103/64; PULSE 89; O2SAT 97
--- NOTE | 2023-11-29 12:30 | W.DS.TRANS ---
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
-
Discharge Instructions:
Discharge Diagnosis/Procedures CAD, s/p lithotripsy and balloon angioplasty to
left circumflex artery (11/21), s/p angioplasty
and stent to RUBI graft-Left Anterior Descending
artery (11/24)
Pulmonary Fibrosis
Acute on Chronic HFrEF
Diet Low Cholesterol,Diabetic, Carb Controlled,
Restrict fluids to 48 oz
Activity As tolerated
Driving Restrictions No driving for 24 hours
Blood Work bmp in 1 week with pcp/cardiology
Other Services Cardiac Rehab
Specialty Instructions Weigh Daily
Instructions:
Stand-Alone Forms: DC Instructions- Cath/EP Lab
Changes to Home Medications: Yes
Discharge Medications:
DC Medications w/original date entered in [facility]
acetaminophen 325 mg tablet (Tylenol) 650 mg PO Q6H PRN pain 11/22/23
aspirin 81 mg capsule 81 mg PO DAILY Blood Clot Prevention/Tx 11/22/23
atorvastatin 40 mg tablet 40 mg PO DAILY High Cholesterol 11/22/23
clopidogrel 75 mg tablet 75 mg PO DAILY Blood Clot Prevention/Tx 11/22/23
insulin aspart U-100 100 unit/mL (3 mL) subcutaneous pen (Novolog FlexPen U-100 Insulin aspart) 25 - 30 unit SC AC Diabetes 11/22/23
insulin degludec 100 unit/mL (3 mL) subcutaneous pen (Tresiba FlexTouch U-100 insulin) 15 unit SC HS Diabetes 11/22/23
losartan 25 mg tablet 12.5 mg PO DAILY Blood Pressure 11/22/23
multivitamin 1 tab PO DAILY Supplement 11/22/23
pantoprazole 20 mg tablet,delayed release 20 mg PO DAILY Gastrointestinal Issue 11/22/23
furosemide 40 mg tablet (Lasix) 40 mg PO DAILY 30 days #30 tabs 11/29/23
magnesium oxide 500 mg PO BID 30 days #60 tabs 11/29/23
metoprolol succinate 25 mg tablet,extended release 24 hr 12.5 mg (1/2 x 25 mg) PO BID 30 days #30 tabs 11/29/23
Home Medication Changes
furosemide 40 mg tablet (Lasix) 40 mg PO DAILY 30 days #30 tabs 11/29/23
magnesium oxide 500 mg PO BID 30 days #60 tabs 11/29/23
metoprolol succinate 25 mg tablet,extended release 24 hr 12.5 mg (1/2 x 25 mg) PO BID 30 days #30 tabs 11/29/23
Pending Results: No
[2023-11-29] MEDS: NOVOLOG FLEXPEN-MODERATE RESISTANCE 7 UNITS SC (12:42)
[2023-11-29] MEDS: COZAAR 25 MG PO (12:44)
[2023-11-29 15:36] VITALS: BP 104/49
[2023-11-29 16:45] LABS: Glucose - Point of Care 314 mg/dl (70-99)
== END 2023-11-29 17:28 | DRG 323 ==
LOC: 4 WEST ACU 14:56
PROVIDERS: Internal Medicine Cardiovascular Disease; Nurse Practitioner; Nurse Practitioner Adult Health; Physician Assistant Medical; Student in an Organized Health Care Education/Training Program; ADMITTING PHYSICIAN Internal Medicine Cardiovascular Disease; ATTENDING PHYSICIAN Internal Medicine; CONSULT PHYSICIAN Internal Medicine Critical Care Medicine; FAMILY PHYSICIAN Family Medicine; REFERRING PHYSICIAN Internal Medicine Cardiovascular Disease
PROC: 02F13ZZ Fragmentation in Coronary Artery, Two Arteries, Percutaneous Approach (ICD-10-PCS; 2023-11-22)
PROC: 027034Z Dilation of Coronary Artery, One Artery with Drug-eluting Intraluminal Device, Percutaneous Approach (ICD-10-PCS; 2023-11-25)
PROC: B240ZZ3 Ultrasonography of Single Coronary Artery, Intravascular (ICD-10-PCS; 2023-11-25)
PROC: B2111ZZ Fluoroscopy of Multiple Coronary Arteries using Low Osmolar Contrast (ICD-10-PCS; 2023-11-25)
DX: I21.4 Non-ST elevation (NSTEMI) myocardial infarction (principal); I50.23 Acute on chronic systolic (congestive) heart failure; J96.01 Acute respiratory failure with hypoxia; J18.9 Pneumonia, unspecified organism; I13.0 Hypertensive heart and chronic kidney disease with heart failure and stage 1 through stage 4 chronic kidney disease, or unspecified chronic kidney disease; I47.19 Other supraventricular tachycardia; I25.5 Ischemic cardiomyopathy; I25.10 Atherosclerotic heart disease of native coronary artery without angina pectoris; J84.10 Pulmonary fibrosis, unspecified; N18.9 Chronic kidney disease, unspecified
CPT/HCPCS: 93308; 71045; 71260; 80048; 80053; 80061; 81003; 82248; 82947; 82962; 83036; 83605; 83735; 83880; 84100; 84145; 84484; 85025; 85027; 85347; 85610; 85730; 87040; 87070; 87086; 87811; 92920; 92972; 92978; 93005; 97110; 97162; 97167; 97530; 97535; C1725; C1753; C1760; C1769; C1874; C1887; C1894; C9604; J0153; Q9967

== ENCOUNTER → 2023-12-24 11:12 | Outpatient (REF) | payer OTHER, MEDICARE, SELFPAY ==
[2023-12-24 12:32] LABS: Hematocrit 29.4 % (39.0-52.0); Hemoglobin 9.9 g/dL (13.0-18.0); Mean Corp Hgb Conc. 33.7 g/dL (33.0-37.0); Mean Corpuscular Hgb 31.6 pg (27.0-31.0); Mean Corpuscular Volume 93.9 fL (80.0-94.0); Mean Platelet Volume 10.9 fL (7.4-10.4); Platelet Count 213 10^3/uL (130-400); Red Blood Cell Count 3.13 10^6/uL (4.70-6.10); Red Cell Dist. Width 13.6 % (11.5-14.5); White Blood Cell Count 5.2 10^3/uL (4.8-10.8)
[2023-12-24 13:46] LABS: Blood Urea Nitrogen 29 mg/dl (9-20); Calcium 8.3 mg/dl (8.4-10.2); Carbon Dioxide 30 mmol/L (22-30); Chloride 99 mmol/L (98-107); Glucose 146 mg/dl (70-99); Potassium 4.2 mmol/L (3.5-5.1); Sodium 136 mmol/L (135-145); eGFR > 60.00
== END ==
LOC: OLABP 11:12
PROVIDERS: ATTENDING PHYSICIAN Family Medicine
DX: I21.4 Non-ST elevation (NSTEMI) myocardial infarction (principal); I25.10 Atherosclerotic heart disease of native coronary artery without angina pectoris; I25.5 Ischemic cardiomyopathy; I47.20 Ventricular tachycardia, unspecified; M62.81 Muscle weakness (generalized); I11.9 Hypertensive heart disease without heart failure; I35.0 Nonrheumatic aortic (valve) stenosis; E11.9 Type 2 diabetes mellitus without complications
CPT/HCPCS: 36415; 80048; 85027

== ENCOUNTER → 2023-12-27 09:20 | Outpatient (REF) | payer OTHER, MEDICARE, SELFPAY ==
[2023-12-27 10:03] LABS: Hematocrit 30.8 % (39.0-52.0); Hemoglobin 10.4 g/dL (13.0-18.0); Mean Corp Hgb Conc. 33.8 g/dL (33.0-37.0); Mean Corpuscular Hgb 32.5 pg (27.0-31.0); Mean Corpuscular Volume 96.3 fL (80.0-94.0); Mean Platelet Volume 10.6 fL (7.4-10.4); Platelet Count 223 10^3/uL (130-400); Red Cell Dist. Width 13.5 % (11.5-14.5); White Blood Cell Count 6.1 10^3/uL (4.8-10.8)
[2023-12-27 10:25] LABS: Blood Urea Nitrogen 25 mg/dl (9-20); Calcium 8.7 mg/dl (8.4-10.2); Carbon Dioxide 30 mmol/L (22-30); Chloride 99 mmol/L (98-107); Glucose 109 mg/dl (70-99); Potassium 4.2 mmol/L (3.5-5.1); Sodium 137 mmol/L (135-145); eGFR 58.89
== END ==
LOC: OLABP 09:20
PROVIDERS: ATTENDING PHYSICIAN Family Medicine
DX: I21.4 Non-ST elevation (NSTEMI) myocardial infarction (principal); I25.10 Atherosclerotic heart disease of native coronary artery without angina pectoris; I25.5 Ischemic cardiomyopathy; I47.20 Ventricular tachycardia, unspecified; M62.81 Muscle weakness (generalized); I11.9 Hypertensive heart disease without heart failure; I35.0 Nonrheumatic aortic (valve) stenosis; E11.9 Type 2 diabetes mellitus without complications; N17.0 Acute kidney failure with tubular necrosis; C61 Malignant neoplasm of prostate
CPT/HCPCS: 36415; 80048; 85027

== ENCOUNTER → 2024-01-09 20:30 | Outpatient (REF) | payer OTHER, MEDICARE, SELFPAY ==
[2024-01-09 20:46] LABS: % Basophils 0.3 % (0-2); % Eosinophils 3.9 % (0-6); % Immature Granulocytes 0.4 % (0-0.5); % Lymphocytes 13.9 % (20.5-51.1); % Monocytes 10.8 % (1.7-9.3); % Neutrophils 70.7 % (42.2-75.2); Absolute Eosinophils 0.3 10^3/uL (0-0.7); Absolute Lymphocytes 1.1 10^3/uL (1.2-3.4); Absolute Monocytes 0.9 10^3/uL (0.1-0.6); Absolute Neutrophils 5.6 10^3/uL (1.4-6.5); Hematocrit 33.1 % (39.0-52.0); Hemoglobin 11.1 g/dL (13.0-18.0); Mean Corp Hgb Conc. 33.5 g/dL (33.0-37.0); Mean Corpuscular Hgb 31.8 pg (27.0-31.0); Mean Corpuscular Volume 94.8 fL (80.0-94.0); Mean Platelet Volume 10.3 fL (7.4-10.4); Nucleated Red Blood Cells % 0 % (-); Platelet Count 245 10^3/uL (130-400); Red Blood Cell Count 3.49 10^6/uL (4.70-6.10); White Blood Cell Count 7.9 10^3/uL (4.8-10.8)
[2024-01-09 20:53] LABS: Blood Urea Nitrogen 34 mg/dl (9-20); Calcium 8.6 mg/dl (8.4-10.2); Carbon Dioxide 30 mmol/L (22-30); Chloride 97 mmol/L (98-107); Glucose 189 mg/dl (70-99); Potassium 4.9 mmol/L (3.5-5.1); Sodium 138 mmol/L (135-145); eGFR 58.89
== END ==
LOC: OLAB 20:30
PROVIDERS: ATTENDING PHYSICIAN Family Medicine
DX: I25.10 Atherosclerotic heart disease of native coronary artery without angina pectoris (principal)
CPT/HCPCS: 80048; 85025

== ENCOUNTER 2024-01-11 18:15 | Inpatient (IN) | payer MEDICARE, SELFPAY ==
[2024-01-11 15:43] VITALS: BP 118/55; BMI 26.6
[2024-01-11 15:58] LABS: % Basophils 0.4 % (0-2); % Eosinophils 4.4 % (0-6); % Immature Granulocytes 0.4 % (0-0.5); % Lymphocytes 14.1 % (20.5-51.1); % Monocytes 10.4 % (1.7-9.3); % Neutrophils 70.3 % (42.2-75.2); Absolute Eosinophils 0.4 10^3/uL (0-0.7); Absolute Lymphocytes 1.4 10^3/uL (1.2-3.4); Absolute Neutrophils 6.9 10^3/uL (1.4-6.5); Hematocrit 35.2 % (39.0-52.0); Hemoglobin 11.7 g/dL (13.0-18.0); Mean Corp Hgb Conc. 33.2 g/dL (33.0-37.0); Mean Corpuscular Hgb 30.5 pg (27.0-31.0); Mean Corpuscular Volume 91.9 fL (80.0-94.0); Mean Platelet Volume 9.7 fL (7.4-10.4); Nucleated Red Blood Cells % 0 % (-); Platelet Count 263 10^3/uL (130-400); Red Blood Cell Count 3.83 10^6/uL (4.70-6.10); Red Cell Dist. Width 14.2 % (11.5-14.5); White Blood Cell Count 9.8 10^3/uL (4.8-10.8)
[2024-01-11 16:00] VITALS: BP 111/56
[2024-01-11 16:21] LABS: ALT (SGPT) 27 U/L (0-50); AST (SGOT) 50 U/L (17-59); Albumin 3.3 g/dl (3.5-5.0); Alkaline Phosphatase 143 U/L (38-126); Blood Urea Nitrogen 36 mg/dl (9-20); Calcium 9.2 mg/dl (8.4-10.2); Carbon Dioxide 34 mmol/L (22-30); Chloride 96 mmol/L (98-107); Estimated Creatinine Clearance 44 ml/min; Glucose 87 mg/dl (70-99); Potassium 4.5 mmol/L (3.5-5.1); Sodium 139 mmol/L (135-145); Total Bilirubin 0.6 mg/dl (0.2-1.3); Total Protein 6.7 g/dl (6.3-8.2); eGFR 58.89
--- NOTE | 2024-01-11 17:20 | ED.SKININJ ---
HPI-Injury
General
Chief Complaint: Skin Problem
Source: patient
Exam Limitations: none
Time Seen by Provider: 01/11/24 15:43
Nursing documentation reviewed up to this point in time: agreed with
History of Present Illness-Injury
Is this injury a work related problem?: No
Is pt an associate of [facility]?: No
Initial Injury comments:
Patient to ED for eval of wounds to left heel left medial foot. Non healing wound to left heel. Treated with silvadene cream. Was seen by wound care nurse today and advised to come to ED for eval. Report of a fever mid week last week, non since.
Reports increased drainage to right heel. Brought to eD via EMS for eval.
Past History
Past History
ED Past Medical History: CAD, Cancer (prostate), HTN, Hypercholesterolemia, NIDDM, Renal failure and Other (Loss of vision left eye)
Review of Systems
Review of Systems
Allergies reviewed?: Yes
All Other Systems: ROS reviewed and negative except as documented in HPI and ROS
Constitutional: Reports no symptoms
Musculoskeletal: Reports no symptoms
Skin: Reports other (Nonhealing wouond left heel. wound left medial foot at head of 1st metatarsal)
Neurological: Reports no symptoms
Psychiatric: Reports no symptoms
Phy Exam
General Physical Exam
General Presentation: well appearing
General age: appears stated age
General Skin: warm and dry
General Habitus: normal
General Mental: alert
Cardiovascular Exam
Cardiovascular Exam: regular rate/rhythm
Pulmonary Exam
Pulmonary Exam: no respiratory distress and chest non tender
Musculoskeletal Exam
Musculoskeletal Exam: neuro vasc intact (DP, PT pulses by doppler)
Skin Exam
Skin Exam: other (Large non healing wound left heel. increased yellow drainage. Erythema extending up left lower leg. Smaller dry wound left medial distal foot.)
Psychiatric Exam
Psychiatric Exam: normal mood/affect
Course
Orders/Labs/Results
Orders:
Orders
01/11/24 Breakfast
Cholesterol Lowering
At Your Request: Limited Participation
Does patient need a safe tray?: No
Cholesterol Lowering: Sodium, 2 Gram
1800 samm/15 CHO Diabetic
01/11/24 15:51
CBC/With Diff [Complete Blood Count/With Diff] Urgent
CMP [Comprehensive Metabolic Panel] Urgent
01/11/24 16:29
Foot, Left 3 View [CR Foot - Left Min 3 Views] Urgent
Comment:
Reason For Exam: cellulitis
US Periph Venous LOWER Ext LT Urgent
Comment:
Reason For Exam: cellulitis
01/11/24 16:34
Wound Culture [Wound/Abscess/Other Culture] Urgent
ROEL Source: Foot
Specimen Description: Left
Date Specimen was Collected: 01/11/24
Time Specimen was Collected: 16:30
01/11/24 17:56
Admit/Transfer Patient As Directed
Co-Sign Provider:
Level of Care: Inpatient admission
Assign to:: Telemetry
Physician / Group: [email or web address]
Diagnosis: LLEx Cellultis Underlying non healing left heel, left foot wound
Reason for Telemetry: Arrhythmia
Date to Stop Telemetry: 01/14/24
Time to Stop Telemetry: 11:00
Reason for Hospitalization: LLEx Cellultis
Underlying non healing left heel, left foot wound
Expected length of stay greater than two midnights?: Yes
ELOS- Estimated Length of Stay in days: 3
I certify the patient meets the requirements for IP care: Yes
01/11/24 18:04
Code Status As Directed
Resuscitation Status: Full Code
01/11/24 19:29
Bisacodyl [Dulcolax] 10 mg RECTAL [id number] PRN
Dextrose 50%-Water [Dextrose 50% Syringe] 12.5 grams IV [id number] PRN
Docusate W/Senna [Senokot-S] 1 tablet PO BIDPRN PRN
Glucagon [GlucaGen] 1 mg IM PRN PRN
Polyethylene Glycol Powder [Miralax] 17 grams PO DAILYPRN PRN
01/11/24 19:29
PODIATRY CONSULT Routine
Consulting Provider: Lavon Hager
Was physician already notified: Yes
Reason for consult: LL Ex Cellulitis Underlying non healing left heel, left foot wound
Activity As Directed
Activity Level: With Assistance
Bedside Glucose Monitoring As Directed
Frequency: AC&HS
Additional Instructions:: Change to q6h if pt on TPN, tube feeding or not eating
Intake/ Output As Directed
Frequency: Per unit guidelines
Vital Signs As Directed
Frequency: Per unit guidelines
Weight As Directed
Frequency: Daily
DX Deep Vein Thrombosis Video Routine
01/11/24 20:00
Heparin 5,000 units SC Q12
VANCOMYCIN Pharmacy to Dose [VANCOCIN Pharmacy to Dose] 1 each Pharmacy To Prepare [Call Pharmacy To Prepare] 0 ml IV PER PROTOCOL
01/12/24 07:30
Insulin Aspart Corrective Low [Novolog Flexpen-Low Resistance] See Protocol SC AC
01/12/24 08:00
Aspirin Chewable [Low Strength Aspirin] 81 mg PO DAILY
Clopidogrel Bisulfate [Plavix] 75 mg PO DAILY
Furosemide [Lasix] 40 mg PO DAILY
Metoprolol Xl [Toprol Xl] 25 mg PO DAILY
Midodrine [ProAmatine] 2.5 mg PO TID@0800,1300,1800
01/12/24 08:03
Basic Metabolic Panel IN AM
Complete Blood Count/No Diff IN AM
Glycohemoglobin (HgbA1c) IN AM
01/12/24 18:00
Atorvastatin [Lipitor] 40 mg PO QPM
01/14/24 11:00
DC Protocol for Telemetry ONCE
Abnormal Lab Results
01/11/24
15:51
RBC 3.83 L 10^6/uL
(4.70-6.10)
Hgb 11.7 L g/dL
(13.0-18.0)
Hct 35.2 L %
(39.0-52.0)
Absolute Neuts (auto) 6.9 H 10^3/uL
(1.4-6.5)
Absolute Monos (auto) 1.0 H 10^3/uL
(0.1-0.6)
Lymphocytes % 14.1 L %
(20.5-51.1)
Monocytes % 10.4 H %
(1.7-9.3)
Chloride 96 L mmol/L
(98-107)
Carbon Dioxide 34 H mmol/L
(22-30)
BUN 36 H mg/dl
(9-20)
Alkaline Phosphatase 143 H U/L
(38-126)
Albumin 3.3 L g/dl
(3.5-5.0)
01/11/24 15:51
01/11/24 15:51
Vital Signs
Initial and Last Documented VS:
Initial Vital Signs
Temp Pulse Resp BP Pulse Ox
98.2 F 96 18 118/55 93
01/11/24 15:43 01/11/24 15:43 01/11/24 15:43 01/11/24 15:43 01/11/24 15:43
Last Documented Vital Signs
Temp Pulse Resp BP Pulse Ox
97.5 F 89 20 116/54 99
01/15/24 20:04 01/15/24 20:04 01/15/24 20:04 01/15/24 20:04 01/15/24 20:04
MDM/Problems Addressed
Differential Diagnosis Includes:
Patient sent to ED by wound care nurse for increasing erythema to LLE, worsening chronic wound to left heel, left distal medial foot. DP/PT pulses by doppler . Pain to foot. Afebrile. WBC normal. Xray, US reviewed. No evidence of DVT,
osteomyelitis. Will admit to hospitalist, Vancomycin started in dept.
*Radiology
Radiology exam reviewed: radiology read reviewed
*Pulse Oximetry
Patient hypoxic: no
*Critical Care Note
Total Time (30-74mins, 75-104mins- exclusive of procedures): Not Applicable
ED Attending Note
-
Portions of this chart may have been created with voice recognition software.� Occasional wrong word or��sound alike� substitutions may have occurred due to the inherent limitations of voice recognition software.
Discharge Plan
Departure
Patient Disposition: Admit
Date of Disposition: 01/11/24
Time of Disposition: 17:29
Presentation/result/management discussed w/ accepting MD/DO: Hospitalist
Patient with high blood pressure during this ER visit?: No
Condition: Good
Covid-19: Not Applicable
Discharge Problem:
Cellulitis of foot, Wound, open, foot with complication
Interventions
Interventions:
*General Assessment Last Done: 01/11/24 15:43
*Neglect/Abuse Screening Last Done: 01/11/24 15:43
ED- Fall Risk Assessment Last Done: 01/11/24 15:54
*Nursing Disposition Last Done: 01/11/24 19:23
ED-Skin Assessment Last Done: 01/11/24 15:54
Discharge Date and Time
Discharge Date/Time: 01/11/24 19:23
--- NOTE | 2024-01-11 17:32 | PHANOTE ---
Addendum entered by Dianelys Ruiz 01/11/24 18:15:
spoke to 4th floor nursing at [facility], she gave me a verbal over phone to due no fax and admission order place at [facility]
Original Note:
med ec note- called [facility] 4th floor nurses at [phone]. patient came with med list but no dosage or direction on list just name of meds.
--- NOTE | 2024-01-11 17:50 | HPS.HSE ---
Family Physician
-
Family Physician: Edgard Pedroza MD
Chief Complaint
-
increasing erythema to LLE
History of Present Illness
88M [facility] HX nonhealing wounds left heel, left foot treating with silvadene cream sent to ED by wound care nurse for:
- increasing erythema to LLE
- worsening chronic wound to left heel, left distal medial foot but POS DP/PT pulses by doppler .
- POS Pain to foot. Afebrile.
- Report of a fever mid week last week, non since.
- No prior HX MRSA
ER w/u
WBC normal.
US and XR; No evidence of DVT, osteomyelitis.
Medical History
Past Medical History
Past Medical History: Reports Arrhythmia (Prx AF ), CAD, CHF, HTN, Hypercholesterolemia, IDDM and Renal Failure (CKD 3a , baseline Cr 1.2)
Past Surgical History: Reports Cardiac (11/21: angioplasty and partially successful treatment with shockwave IVL reducing distal left main/ostial circumflex stenosis from 95% to 30-40% severity 11/24 Successful PCI with JUAN RAMON to the RUBI-LAD touchdown
11/24) and Other (HX MV-CAD s/p CABG with Hx of PCI x3)
Social History
Tobacco: Non-smoker
Alcohol: None
Family History
Family History: Not pertinent
Allergies / Home Medications
Allergies reflects when Allergies were last updated in [facility].
Home Medications with original date entered in [facility]
Allergy/Medication List:
Allergies
Allergy/AdvReac Type Severity Reaction Status Date / Time
piperacillin [From Zosyn] Allergy Intermediate Itching Verified 01/11/24 15:47
tazobactam [From Zosyn] Allergy Intermediate Itching Verified 01/11/24 15:47
nitrofurantoin Allergy Unknown Verified 01/11/24 15:47
pollen extracts Allergy Unknown Verified 01/11/24 15:47
Home Medications
acetaminophen 325 mg tablet (Tylenol) 650 mg PO 11/22/23
atorvastatin 40 mg tablet 40 mg PO High Cholesterol 11/22/23
clopidogrel 75 mg tablet 75 mg PO Blood Clot Prevention/Tx 11/22/23
insulin aspart U-100 100 unit/mL (3 mL) subcutaneous pen (Novolog FlexPen U-100 Insulin aspart) unit SC Diabetes 11/22/23
insulin degludec 100 unit/mL (3 mL) subcutaneous pen (Tresiba FlexTouch U-100 insulin) unit SC Diabetes 11/22/23
multivitamin 1 tab PO Supplement 11/22/23
pantoprazole 20 mg tablet,delayed release 20 mg PO Gastrointestinal Issue 11/22/23
aspirin 81 mg chewable tablet 81 mg PO 01/11/24
bisacodyl 10 mg rectal suppository (Dulcolax (bisacodyl)) 10 mg ME 01/11/24
furosemide 40 mg tablet (Lasix) 40 mg PO 01/11/24
lidocaine 5 % topical patch 1 patch topical DAILY 01/11/24
magnesium hydroxide 400 mg/5 mL oral suspension (Milk of Magnesia) 2,400 mg PO 01/11/24
magnesium oxide 500 mg PO 01/11/24
metoprolol succinate 25 mg tablet,extended release 24 hr 25 mg PO 01/11/24
midodrine 2.5 mg tablet 2.5 mg PO 01/11/24
silver sulfadiazine 1 % topical cream (Silvadene) 1 applic topical 01/11/24
sodium phosphates 19 gram-7 gram/118 mL enema (Fleet Enema) 118 ml ME 01/11/24
Review of Systems
-
Constitutional: Reports No Symptoms
EENT: Reports No Symptoms
Respiratory: Reports No Symptoms
Cardiac: Reports No Symptoms
Abdomen/GI: Reports No Symptoms
: Reports No Symptoms
Musculoskeletal: Reports No Symptoms
Skin: Reports See HPI
Neurological: Reports No Symptoms
Endocrine: Reports No Symptoms
Hematologic/Lymphatic: Reports No Symptoms
Psych: Reports No Symptoms
Physical Exam
Vital Signs
Vital Signs
Temp Pulse Resp BP Pulse Ox
98.2 F 79 18 111/56 96
01/11/24 15:43 01/11/24 16:00 01/11/24 16:00 01/11/24 16:00 01/11/24 16:00
Physical Exam
General: Well Developed, Well Nourished and No Apparent Distress
HEENT: NormoCephalic, Moist mucous membranes and Atraumatic
Respiratory: Clear
Cardiac: S1/S2 and Regular Rhythm; No Murmur or Rub
GI: Soft, Non Tender, Non Distended and Normal Bowel Sounds; No Organomegaly
Rectal: Deferred by Provider
Musculoskeletal: No Clubbing, No Cyanosis and No Edema
Skin: Other (Large non healing wound left heel. increased yellow drainage. Erythema extending up left lower leg. Smaller dry wound left medial distal foot.); No Rash
Neuro: Nonfocal/grossly intact
Psych: Calm
Laboratory Results
-
01/11/24 15:51
01/11/24 15:51
Laboratory Results
Total Bilirubin 0.6 mg/dl (0.2-1.3) 01/11/24 15:51
AST 50 U/L (17-59) 01/11/24 15:51
ALT 27 U/L (0-50) 01/11/24 15:51
Alkaline Phosphatase 143 U/L (38-126) H 01/11/24 15:51
Data Reviewed
-
Diagnostic Radiology: Image Personally Visualized and interpreted
Ultrasound: Image Personally Visualized and interpreted
Lab Data: Labs Reviewed by me
Old Records: Reviewed
Impression/Plan
-
Vital Signs
Temp Pulse Resp BP Pulse Ox
98.2 F 79 18 111/56 96
01/11/24 15:43 01/11/24 16:00 10/12/24 16:00 01/11/24 16:00 01/11/24 16:00
Data
nl WCC
Hgb 11.7
Cl 96
CO2 34
Cr 1.2
eGFR 59
Wd Cx sent
Pending Lb/l ELOY US
XR Foot : pending
Last hospitalist admission:
DATE OF ADMISSION: 11/22/2023 - DATE OF DISCHARGE: 11/29/2023
DISCHARGE DIAGNOSES:
1. Coronary artery disease status post lithotripsy and balloon angioplasty to left circumflex artery (11/21), status post
angioplasty and stent to left internal mammary artery graft-Left Anterior Descending artery (11/24).
2. Pulmonary fibrosis.
3. Acute on chronic heart failure with reduced ejection fraction.
ASSESSMENT & PLAN
Pending Rx reconciliation
LL Ex Cellulitis
Underlying non healing left heel, left foot wound
NEG prior MRSA screen
HX Piperacillin allergy
- IV vancomycin
- f/u clinical response
- Podiatry consult
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
-should have PFTs and further work up done outpatient
-f/u Pul outpatient
HX Chr HFrEF with LV EF 20 to 25%
HX ICM with acute on chronic HFrEF
- tolerating GDMT
- c/w RETAIL PRESENTATION SPECIALIST PO 40mg Lasix daily
- c/w losartan and cont BB
CKD 3a stable
Current Cr 1.2 is at baseline
- f/u Cr
IDDMT2
Last A1C was 6.7
- c/w RETAIL PRESENTATION SPECIALIST Insulin regime
- add ISS low
HX CAD, ICM
11/21: angioplasty and partially successful treatment with shockwave IVL reducing distal left main/ostial circumflex stenosis from 95% to 30-40% severity
11/24 Successful PCI with JUAN RAMON to the RUBI-LAD touchdown 11/24
- c/w DAPT
- continue BB, ARB
Chr conditions:
HX atrial fibrillation
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
GERD
Hypertension
Hyperlipidemia
Mild aortic stenosis
DVT Px: SQH
Code: Full
IP TLM
[2024-01-11 18:00] VITALS: BP 105/53
[2024-01-11] MEDS: VANCOCIN 540 MG IV (18:36)
--- NOTE | 2024-01-11 19:40 | PHA.VAN.IN ---
Assessment
- Assessment
Renal Function: Appears similar to baseline
Plan
- Plan
Initial / Loading Dose: 2000mg - 01/10 18:36
Maintenance Regimen: dosing by level
Monitoring: random 01/11 0600
Pharmacokinetics Vancomycin I
- -
Patient Age: 88
Patient Sex: Male
Vancomycin Day #: 1
Indication: Skin And Soft Tissue
Requesting Provider: Dr. Hansen
Pertinent Antimicrobial Allergies:
piperacillin/tazobactam - itching, facial flushing and eyelid swelling
nitrofurantoin - unknown
Height / Weight:
Height 5 ft 9 in
Actual Weight 81.5 kg
- Vital Signs / Lab Results
Temp Pulse Resp BP Pulse Ox
98.2 F 92 16 105/53 96
01/11/24 15:43 01/11/24 18:44 01/11/24 18:44 01/11/24 18:00 01/11/24 18:44
Lab Results - Hematology
01/11/24
15:51
WBC 9.8
Lab Results - Chemistry
01/11/24
15:51
BUN 36 H
Creatinine 1.2
Estimated Creat Clear 44
Albumin 3.3 L
[2024-01-11 20:06] LABS: Glucose - Point of Care 97 mg/dl (70-99)
[2024-01-11 20:13] VITALS: BMI 24.9
[2024-01-11] MEDS: HEPARIN 5000 UNITS SC (20:52)
[2024-01-11 21:00] VITALS: BP 103/58
--- NOTE | 2024-01-11 22:45 | W.PN.POD ---
Today's Communication
- Today's Communication
podiatry consult LLE cellulitis
and chronic non healing heel wound
Assessment / Plan
- -
88 y/o IDDM male
Cellulitis LLE with
unstageable pressure ulcer left heel
with overlying eschar
suggest: ID consult
wound care consult
arterial eval with ANNE MARIE
MRI with and w/o contrast left heel
offloading relief boot in bed vital
apply adhesive foam dressing left heel
no debridement at this time
Subjective/Objective
- Subjective
patient presented to ED with cellulitis LLE with
non healing wound left heel
treated by wound care nurse today and advised to ED for evaluation
with increased erythema and swelling, wound treated with silvadene
wound culture, gram stain pending
x-ray negative for OM
large heel spurs, atherosclerosis
no DVT
IDDM, CAD
- Objective
Temp Pulse Resp BP Pulse Ox
97.7 F 94 22 103/58 98
01/11/24 21:00 01/11/24 21:00 01/11/24 21:00 01/11/24 21:00 01/11/24 21:00
01/11/24 15:51
01/11/24 15:51
Vital Signs and Lab results were reviewed.
large unstageable pressure wound
posterior plantar left heel
circular shape around rim
eschar brown with hawkins yellow around edges
mild yellow drainage around edges with outline on bandage
mild tender
increase warmth, increase swelling
surrounding erythema completely around wound wilfredo up LE
maceration around wound with further breakdown of skin noted
[2024-01-11 23:00] VITALS: BP 105/59
--- NOTE | 2024-01-11 23:16 | PTCARENOTE ---
Patient arrived via stretcher to unit around 19:30 with dx of left LE cellulitis and left heel wound. AAOX3. Pleasant and cooperative with care. Heavily incontinent of urine. C/o 4/10 intermittent pain to left heel and left knee declining pain
medication at this time. No signs of SOB or distress noted. bed alrm placed on bed. Call castañeda with in reach. Oriented to unit. Dr Hager from podiatry saw patient on unit and with new orders.
[2024-01-12] VITALS (7 sets, daily range): BP systolic 107–122; BP diastolic 54–65; BMI 24.9
[2024-01-12 07:16] LABS: Glucose - Point of Care 143 mg/dl (70-99)
[2024-01-12] MEDS: PLAVIX 75 MG PO (08:00)
[2024-01-12] MEDS: LASIX 40 MG PO (08:00)
[2024-01-12] MEDS: TOPROL XL 25 MG PO (08:00)
[2024-01-12] MEDS: HEPARIN 5000 UNITS SC ×2 (08:00→21:00)
[2024-01-12] MEDS: ProAmatine 2.5 MG PO ×3 (08:00→18:00)
[2024-01-12] MEDS: LOW STRENGTH ASPIRIN 81 MG PO (08:00)
[2024-01-12] MEDS: NOVOLOG FLEXPEN-LOW RESISTANCE SC (08:00)
[2024-01-12 08:30] LABS: Hematocrit 28.8 % (39.0-52.0); Hemoglobin 9.9 g/dL (13.0-18.0); Mean Corp Hgb Conc. 34.4 g/dL (33.0-37.0); Mean Corpuscular Hgb 30.7 pg (27.0-31.0); Mean Corpuscular Volume 89.2 fL (80.0-94.0); Mean Platelet Volume 9.7 fL (7.4-10.4); Platelet Count 232 10^3/uL (130-400); Red Blood Cell Count 3.23 10^6/uL (4.70-6.10); Red Cell Dist. Width 14.2 % (11.5-14.5); White Blood Cell Count 6.6 10^3/uL (4.8-10.8)
[2024-01-12 08:42] LABS: Vancomycin Random 12.3 ug/ml
[2024-01-12 09:19] LABS: Blood Urea Nitrogen 32 mg/dl (9-20); Calcium 8.8 mg/dl (8.4-10.2); Carbon Dioxide 26 mmol/L (22-30); Chloride 101 mmol/L (98-107); Estimated Creatinine Clearance 53 ml/min; Glucose 143 mg/dl (70-99); Potassium 4.3 mmol/L (3.5-5.1); Sodium 136 mmol/L (135-145); eGFR > 60.00
--- NOTE | 2024-01-12 10:23 | PHA.VAN.FU ---
Vancomycin Assessment / Plan
- Assessment
Renal Function: SCR Decreasing
WBC's are: Trending Down
In the past 24 hrs, patient has been: Afebrile
- Dosing Plan
Continue: Dosing by level
Dosing by Level: Re-dose today (Vanc 1000mg IV)
- Monitoring Plan
Random Level: 01/12 0600
- Follow Up
Pharmacy will continue to follow.
Vancomycin Follow UP
- -
Patient Age: 88
Patient Sex: Male
Vancomycin Day #: 2
Indication: Skin And Soft Tissue
Requesting Provider: Dr. Hansen
Pertinent Antimicrobial Allergies:
piperacillin/tazobactam - itching, facial flushing and eyelid swelling
nitrofurantoin - unknown
Height / Weight:
Height 5 ft 9 in
Actual Weight 76.566 kg
- Vital Signs / Lab Results
Temp Pulse Resp BP Pulse Ox
98.2 F 104 20 107/61 92
01/12/24 07:56 01/12/24 08:00 01/12/24 07:56 01/12/24 08:00 01/12/24 07:56
Lab Results - Hematology
01/11/24 01/12/24
15:51 08:03
WBC 9.8 6.6
Lab Results - Chemistry
01/11/24 01/12/24
15:51 08:03
BUN 36 H 32 H
Creatinine 1.2 1.0
Estimated Creat Clear 44 53
Albumin 3.3 L
Therapeutic Drug Monitoring
Random Vancomycin 12.3 ug/ml 01/12/24 08:03
[2024-01-12 12:22] LABS: Glycohemoglobin (HgbA1c) 6.9 % (4.0-5.6)
--- NOTE | 2024-01-12 13:28 | CON.ID ---
Consultation
-
Date/Time Consultation Requested: January 12, 2024
Date/Time Consultation Performed: January 12, 2024 1330
Requesting Provider: Dr. Le Hager
Performing Provider: Dr. Keara Fields
Reason for Consultation: Left heel wound, cellulitis
Chief Complaint / Past History
Chief Complaint
Left heel wound is worse
History of Present Illness
88-year-old male with diabetes mellitus type 2 pulmonary fibrosis, CAD status post PCI x 4 last being October 2023, heart failure, who came to the hospital from [email or web address] January 10 due to left heel wound. Patient reports he developed the bilateral
heel pressure wounds left worse than the right from being in and out of hospitals and nursing homes. Last week at [facility], he had episode of fever and chills. He states he received IV antibiotic x 2 doses at [email or web address]. Yesterday, wound nurse noted
LLE edema and erythema and sent him to hospital. XRAY no osteo. Pt reports no pain. No further fever/chills. He has ambulator dysfunction due to arthritis of right knee. No other complaints.
Past History
Additional Past Medical History:
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
CAD s/p CABG with Hx of PCI x4
HFrEF
Hypertension
Hyperlipidemia
DM type II
CKD3
Mild aortic stenosis
GERD
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
Allergy History:
piperacillin [From Zosyn] Allergy (Intermediate, Verified 01/11/24 15:47)
Itching
tazobactam [From Zosyn] Allergy (Intermediate, Verified 01/11/24 15:47)
Itching
nitrofurantoin Allergy (Verified 01/11/24 15:47)
Unknown
pollen extracts Allergy (Verified 01/11/24 15:47)
Unknown
Medications Reviewed: Yes
Current Antibiotics:
Vancomycin
Social History
Tobacco: Non-Smoker
Alcohol: None
Drug: None
Living: Assisted ([facility])
Family History
Family History: Not Pertinent
Review of Systems
Review of Systems
General: Negative Change in Appetite
HEENT: Negative Headache or Pharyngitis
Cardiovascular: Negative Chest Pain or Dyspnea
Respiratory: Negative Dyspnea or Cough
Gasteroenterology: Negative Nausea, Vomiting or Diarrhea
Genital / Urological: Negative Dysuria or Flank Pain
Endocrine: Negative Weakness
Neurological: Negative Headache or Dizziness
All systems: All other systems were reviewed and were negative
Vital Signs
Temp Pulse Resp BP Pulse Ox
98.2 F 104 20 107/61 92
01/12/24 07:56 01/12/24 08:00 01/12/24 07:56 01/12/24 08:00 01/12/24 07:56
Physical Exam
Physical Exam
Constitutional: No Acute Distress
Eyes: No Conjunctival Hemorrhage and Sclera Anicteric
Cardiovascular: Regular Rate and S1/S2
Pulmonary: Coarse (at bases)
Gastrointestinal: Soft, Non Tender, Non Distended and Normal Bowel Sounds
Extremities: Edema (LLE 2+ edema) and Erythema (LLE foot white, + warmth, + dry skin)
Wound: Other (left heel: large wound unstageable with black eschar over wound, no drainage, no significant surrounding erythema)
Neurological: AO x 3
Lab / Diagnostic Study Results
01/12/24 08:03
01/12/24 08:03
Abs Immat Gran (auto) 0.0 10^3/uL (0-0.05) 01/11/24 15:51
Absolute Neuts (auto) 6.9 10^3/uL (1.4-6.5) H 01/11/24 15:51
Absolute Lymphs (auto) 1.4 10^3/uL (1.2-3.4) 01/11/24 15:51
Absolute Monos (auto) 1.0 10^3/uL (0.1-0.6) H 01/11/24 15:51
Absolute Basos (auto) 0.0 10^3/uL (0-0.2) 01/11/24 15:51
Immature Gran % 0.4 % (0-0.5) 01/11/24 15:51
Neutrophils % 70.3 % (42.2-75.2) 01/11/24 15:51
Lymphocytes % 14.1 % (20.5-51.1) L 01/11/24 15:51
Monocytes % 10.4 % (1.7-9.3) H 01/11/24 15:51
Eosinophils % 4.4 % (0-6) 01/11/24 15:51
Basophils % 0.4 % (0-2) 01/11/24 15:51
Microbiology Results
Micro:
01/12/24 02:14 MRSA Screen - Pending
Nose
01/11/24 16:34 Wound Culture - Pending
Foot - Left Gram Stain - Pending
01/11/24 Left foot XRAY: No acute abnormalities
01/11/24 Left periph vasc US: No DVT
Assessment / Plan
# Nonpurulent LLE cellulitis
# Left calcaneus decubitus wound with eschar - does not appear infected
- Change Vancomycin to cefazolin.
-Moisturize skin
- Elevate and/or compression LLE
- Wound Care eval tomorrow.
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
CAD s/p CABG with Hx of PCI x4
HFrEF
Hypertension
Hyperlipidemia
DM type II
CKD3
Mild aortic stenosis
GERD
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
[2024-01-12] MEDS: ANCEF 10 IV ×2 (14:09→21:09)
[2024-01-12] MEDS: NOVOLOG FLEXPEN-LOW RESISTANCE 4 UNITS SC (15:00)
--- NOTE | 2024-01-12 15:09 | CM ---
aerospace project manager reviewed patient's chart and met with patient and patient is currently receiving therapy on the 3rd floor at [facility], [facility]. Patient states he has had multiple admissions and discharge to [facility] till he has finally singed on
to LTC at [facility] and patient has been placed on 3rd floor. Patient states the last few weeks he has been in bed but prior to that he was using a walker and cane.
PCP: Dr. Pedroza
Plan; Back to [facility] referral sent through [facility].
[facility]
Report [phone]
[2024-01-12 15:25] LABS: Glucose - Point of Care 322 mg/dl (70-99)
--- NOTE | 2024-01-12 15:48 | W.PN.HOSP.TC ---
Today's Communication/Plan
-
Continue antibiotics
Assessment / Plan
Assessment / Plan
Physical Exam
General: Not in acute distress
HEENT: Normocephalic
Respiratory: CTAB
Cardiac: S1/S2 and Regular Rhythm
GI: Soft, Non Tender, Non Distended and Normal Bowel Sounds
Musculoskeletal: No Cyanosis. LLE edema.
Skin: Other (Large non healing wound left heel). Erythema on the LLE white and foot
Neuro: Nonfocal/grossly intact
Psych: Calm
Assessment/Plan
88-year-old male with diabetes mellitus type 2 pulmonary fibrosis, CAD status post PCI x 4 last being October 2023, heart failure, history of ambulatory dysfunction due to arthritis of right knee presented on January 11, 2024 from [facility] due to
left heel wound. Patient reports he developed the bilateral heel pressure wounds (left worse than the right) from being in and out of hospitals and nursing homes. He recently had fever and chills at [facility] and received intravenous antibiotics at
[facility]. Wound nurse recently noted LLE edema and erythema and sent him to the ER. X-RAY showed no osteomyelitis.
#LLE Cellulitis
#Left calcaneus decubitus wound with eschar - not infected
-Initially Vancomycin was given, now transitioned to Cefazolin
-Appreciated ID
-Elevation of LLE, compression of LLE during the day
-Wound Care consult
#History of Respiratory distress
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
-should have PFTs and further work up done outpatient
-f/u pulm outpatient
#Ischemic cardiomyopathy, acute on chronic HFrEF
�Continue home GDMT as tolerated
-ARB not listed on home medications, although patient was discharged on ARB in October 2023
#History of Transaminitis
#DM II
-Sliding scale insulin
-Depending on trends, add on home long-acting and short-acting Insulin
#Recent NSTEMI
#CAD
- recent angioplasty and partially successful treatment with shockwave IVL reducing distal left main/ostial circumflex stenosis from 95% to 30-40% severity 11/22/23
- Successful PCI with JUAN RAMON to the RUBI-LAD touchdown 11/25/23
- DAPT ASA/Plavix continued, continue BB, ARB
- Cardiac rehab as outpatient
#Tachyarrhythmia due to new onset atrial fibrillation with RVR - now rate controlled
#MV-CAD s/p CABG with Hx of PCI x3
#GERD
#DM type II
#Hypertension
#Hyperlipidemia
#Mild aortic stenosis
#CKD
#History of ambulatory dysfunction due to arthritis of right knee
DVT Prophylaxis: Heparin
Code Status: Full Code
Anticipated Discharge: > 48 hours
Subjective/Interval History
-
Date of Service: January 12, 2024
Patient was seen and examined. He denied any significant pain, or any other new, significant symptoms or complaints.
Objective Data
-
Labs:
Laboratory Results
01/12/24
08:03
WBC 6.6
Hgb 9.9 L
Hct 28.8 L
Plt Count 232
Sodium 136
Potassium 4.3
Chloride 101
Carbon Dioxide 26
BUN 32 H
Creatinine 1.0
Glucose 143 H
Calcium 8.8
Vital Signs:
Vital Signs
Temp Pulse Resp BP Pulse Ox
98.8 F 96 18 113/54 94
01/12/24 11:45 01/12/24 11:45 01/12/24 11:45 01/12/24 11:45 01/12/24 11:45
I&O
01/11/24 01/12/24 01/13/24
06:59 06:59 06:59
Intake Total 120 / 120
Balance 120 / 120
[2024-01-12 17:16] LABS: Glucose - Point of Care 245 mg/dl (70-99)
[2024-01-12] MEDS: NOVOLOG FLEXPEN-LOW RESISTANCE 2 UNITS SC (18:00)
[2024-01-12] MEDS: LIPITOR 40 MG PO (18:00)
[2024-01-12 18:26] LABS: Glucose - Point of Care 278 mg/dl (70-99)
[2024-01-12] MEDS: MAGNESIUM OXIDE 500 MG PO (21:01)
[2024-01-12] MEDS: TOPROL XL 12.5 MG PO (21:01)
[2024-01-13 00:31] LABS: Glucose - Point of Care 197 mg/dl (70-99)
[2024-01-13 03:00] VITALS: BP 116/50
[2024-01-13 06:00] VITALS: BMI 25.2
[2024-01-13] MEDS: ANCEF 10 IV ×3 (06:27→21:51)
[2024-01-13 07:38] VITALS: BP 119/61
[2024-01-13 07:53] LABS: Glucose - Point of Care 190 mg/dl (70-99)
[2024-01-13] MEDS: TOPROL XL 12.5 MG PO ×2 (08:27→21:45)
[2024-01-13] MEDS: PLAVIX 75 MG PO (08:27)
[2024-01-13] MEDS: PROTONIX 20 MG PO (08:27)
[2024-01-13] MEDS: LASIX 40 MG PO (08:27)
[2024-01-13] MEDS: ProAmatine 2.5 MG PO ×3 (08:27→17:24)
[2024-01-13] MEDS: MAGNESIUM OXIDE 500 MG PO ×2 (08:27→21:43)
[2024-01-13] MEDS: LOW STRENGTH ASPIRIN 81 MG PO (08:27)
[2024-01-13] MEDS: HEPARIN 5000 UNITS SC ×2 (08:27→21:43)
[2024-01-13] MEDS: NOVOLOG FLEXPEN-LOW RESISTANCE 1 UNITS SC ×2 (08:28→17:24)
--- NOTE | 2024-01-13 10:02 | W.PN.ID1 ---
Date of Service
Date of Service: January 13, 2024
Today's Communication
Continue cefazolin.
Assessment / Plan
# LLE cellulitis
# Left calcaneus large wound with eschar
- wound swab E. coli
- Continue cefazolin (d2)
-Moisturize skin
- Elevate leg
-For Arterial US.
-Appreciate Wound Care recs.
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
CAD s/p CABG with Hx of PCI x4
HFrEF
Hypertension
Hyperlipidemia
DM type II
CKD3
Mild aortic stenosis
GERD
Nonmelanoma skin cancer (SCC of right zoroastrianism)
Chief Complaint
-: Cellulitis
Subjective / Review of Systems
No new complaints
Vital Signs / Physical Exam
Vital Signs
Vital Signs
Temp Pulse Resp BP Pulse Ox
98.1 F 85 18 119/61 97
01/13/24 07:38 01/13/24 07:38 01/13/24 07:38 01/13/24 07:38 01/13/24 07:38
Physical Exam
Constitutional: No Acute Distress and Comfortable
Pulmonary: Clear
Gastrointestinal: Soft, Non Tender, Non Distended and Decreased Bowel Sounds
Extremities: Edema (LLE decreased edema) and Erythema (LLE improves with leg elevation.)
Wound: Other (Examined with Wound Nurse. Left heel wound dark brown eschar softer, + pink granulation tissue peripherally. Right heel small dry black scab. Sacrum with soft tissue injury and clean small wound.)
Neurological: AO x 3
Objective Data
Lab Data
Lab Results
01/12/24 08:03
01/12/24 08:03
Estimated Creat Clear 53 ml/min 01/12/24 08:03
Total Bilirubin 0.6 mg/dl (0.2-1.3) 01/11/24 15:51
AST 50 U/L (17-59) 01/11/24 15:51
ALT 27 U/L (0-50) 01/11/24 15:51
Alkaline Phosphatase 143 U/L (38-126) H 01/11/24 15:51
Most recent labs reviewed.
Micro Results:
01/11/24 16:34 Wound Culture - Preliminary
Foot - Left Escherichia coli
Gram Stain - Preliminary
01/12/24 02:14 MRSA Screen - Final
Nose No Methicillin Resistant Staphylococcus aureus isolated.
01/11/24 Left foot XRAY: No acute abnormalities
01/11/24 Left periph vasc US: No DVT
Care Review
Plan reviewed with: Nurse (Ghazala Pascal)
--- NOTE | 2024-01-13 11:36 | WOUNDNOTE ---
R MEDIAL GREAT TOE CALLUS
--- NOTE | 2024-01-13 11:37 | WOUNDNOTE ---
L MEDIAL MET HEAD
--- NOTE | 2024-01-13 11:39 | WOUNDNOTE ---
SACRUM AND BUTTOCKS
--- NOTE | 2024-01-13 11:40 | WOUNDNOTE ---
WON RN note: Patient admitted with L leg cellulitis, non healing wounds.
See H&P for complete history. From [facility].
PMH: CABG, cardiac cath lithotripsy, CAD, Aortic stenosis, NIDDM, HTN, RF, urinary incontinence, prostate cancer. Non melanoma skin cancer on scalp and ears.
Wound Location and type/assessment: Assessed patient along with Dr. Fields this morning. Patient admitted with: L heel unstageable PI, brown eschar with edges red, some yellow, foul odor. L medial met head with evolving diabetic ulcer vs unstageable
PI. Wound culture pending from L heel. R medial great toe with lifting callus/scab, intact skin appears underneath cap. R heel with small intact dry eschar, blue fabric on base of wound from socks. Legs with hemosiderin staining, skin warm and dry.
Non palpable pedal pulses. Vascular ultrasound negative for DVT. Dr. Hager on consult for Podiatry, reviewed notes. TruVue lite offloading heel boots in use. Patient turned with assist from nursing. MASD mixed with evolving PI on sacrum/buttocks.
Suspect possible DTI mainly on R buttock in horse shoe shape, suspect from bedpan or commode use. Patient claims he has been in bed recently for several weeks. Incontinent of stool and urine, patient states he can't tell when he has to go. Patient
attempts to assist with turning.
Appetite: Fair.
Pressure redistribution devices in place: On Accumax, difficult to turn. Called Billy for [facility], brought to when patient down for testing.
Plan: MRI test to be done. Recommended to Dr. Fields for ANNE MARIE test, she will order. L heel applied adaptic, abd pad and ricki. Silicone foam to L medial met head and R great toe. Barrier cream to buttocks for now as patient incontinent frequently. R
heel adhesive foam applied, offloading heel boots placed back on. Skin care and brief changed with nurse Kaya then assisted moving patient to stretcher for tests. Confirmed above orders with Dr. Fields and updated nurse. Updated care plan and will
follow as needed.
Note to case management of equipment requested for discharge: Air mattress.
Recommend follow up at wound care center upon discharge.
[2024-01-13 13:26] LABS: Glucose - Point of Care 282 mg/dl (70-99)
[2024-01-13] MEDS: NOVOLOG FLEXPEN-LOW RESISTANCE 3 UNITS SC (13:28)
--- NOTE | 2024-01-13 15:12 | WOUNDNOTE ---
ALLY RN NOTE: Notified Dr. Fields results of ANNE MARIE/TBI and MRI. Recommended vascular consult.
[2024-01-13 15:23] VITALS: BP 110/60
[2024-01-13 15:57] VITALS: BMI 25.2
[2024-01-13 16:07] LABS: Glucose - Point of Care 196 mg/dl (70-99)
--- NOTE | 2024-01-13 16:08 | CM ---
CM reviewed chart, patient off floor at time of visit. Patient LTC at [facility], will require auth to return skilled. CM will continue to follow for all discharge planning needs.
Plan; [facility] LT, will need auth to return skilled
[facility]
Report [phone]
--- NOTE | 2024-01-13 16:15 | CON.VAS ---
Consultation
Consultation Request
Performing Provider: Sunny
Reason for Consultation: Left heel ulcer/PAD eval
Medical History
-
Chief Complaint: Left heel ulcer
History of Present Illness:
88-year-old male asked to evaluate regarding left heel ulceration. Patient notes he has been in and out of the hospital for last few months with history of coronary artery disease. Underwent coronary angioplasty in May and then again in July
or August of this year. Prior history of CABG. He was in rehab and notes that his right knee was giving him great troubles. He is nonoperative it was felt. However he does not walk now as a result. And therefore due to all these factors, and bed
bound status, he developed a left heel ulcer and smaller right heel ulcer. No prior lower extremity vascular procedures. Denies any lower extremity angioplasty/stent/surgery. He does note history of CKD stage III. He does also note history of
diabetes. Denies any tobacco use. On exam/she is awake and alert. Head is normocephalic and atraumatic. Eyes are anicteric. Neck is soft without jugular venous distention. Breathing is unlabored. 1+ radial pulses palpable bilaterally.
Abdomen is soft, nondistended, nontender. Lower extremity with 2+ femoral pulses palpable. Nonpalpable distally bilaterally. Feet are both warm. No rubor, no ulcerations. Wound care pictures reviewed.
Noninvasive studies reviewed.
Past Medical History
Past Medical History: Arrhythmias (A-fib), CAD, CHF, HTN, Hypercholesterolemia, IDDM and Renal Failure (CKD 3a, baseline 1.2)
Past Surgical History: Cardiac (11/21: angioplasty and partially successful treatment with shockwave IVL reducing distal left main/ostial circumflex stenosis from 95% to 30-40% severity 11/24 Successful PCI with JUAN RAMON to the RUBI-LAD touchdown 11/24)
and Other (HX MV-CAD s/p CABG with Hx of PCI x3)
Social History
Tobacco: Non-Smoker
Alcohol: None
Family History
Family History: Reviewed & Not Pertinent
Allergies / Home Medications
Allergy/AdvReac Type Severity Reaction Status Date / Time
nitrofurantoin Allergy Unknown Verified 01/11/24 15:47
piperacillin [From Zosyn] Allergy Itching Verified 01/13/24 16:32
pollen extracts Allergy Unknown Verified 01/11/24 15:47
tazobactam [From Zosyn] Allergy Itching Verified 01/13/24 16:32
�Medication �Instructions �Recorded �Confirmed �Type
acetaminophen 325 mg tablet 650 mg PO Q6HPRN PRN mild pain 11/22/23 01/11/24 History
(Tylenol)
atorvastatin 40 mg tablet 40 mg PO HS High Cholesterol 11/22/23 01/11/24 History
clopidogrel 75 mg tablet 75 mg PO DAILY Blood Clot 11/22/23 01/11/24 History
Prevention/Tx
insulin aspart U-100 100 unit/mL 10 unit SC AC Diabetes 11/22/23 01/11/24 History
(3 mL) subcutaneous pen (Novolog
FlexPen U-100 Insulin aspart)
insulin degludec 100 unit/mL (3 15 unit SC HS Diabetes 11/22/23 01/11/24 History
mL) subcutaneous pen (Tresiba
FlexTouch U-100 insulin)
multivitamin 1 tab PO DAILY Supplement 11/22/23 01/11/24 History
pantoprazole 20 mg tablet,delayed 20 mg PO DAILY Gastrointestinal 11/22/23 01/11/24 History
release Issue
aspirin 81 mg chewable tablet 81 mg PO DAILY 01/11/24 01/11/24 History
bisacodyl 10 mg rectal suppository 10 mg WV DAILYPRN PRN if no bm on 01/11/24 01/11/24 History
(Dulcolax (bisacodyl)) 3rd day
furosemide 40 mg tablet (Lasix) 60 mg PO DAILY 01/11/24 01/11/24 History
lidocaine 5 % topical patch 1 patch topical DAILY 01/11/24 01/11/24 History
magnesium hydroxide 400 mg/5 mL 2,400 mg PO HSPRN PRN constipation 01/11/24 01/11/24 History
oral suspension (Milk of Magnesia)
magnesium oxide 500 mg PO BID 01/11/24 01/11/24 History
metoprolol succinate 25 mg 12.5 mg PO BID 01/11/24 01/11/24 History
tablet,extended release 24 hr
midodrine 2.5 mg tablet 2.5 mg PO TID 01/11/24 01/11/24 History
silver sulfadiazine 1 % topical 1 applic topical DAILY 01/11/24 01/11/24 History
cream (Silvadene)
sodium phosphates 19 gram-7 118 ml WV DAILYPRN PRN if no bm 01/11/24 01/11/24 History
gram/118 mL enema (Fleet Enema) aftr dulcolax
Review of Systems
-
History Source: Patient
All other systems: Negative unless noted
Constitutional: Reports No Symptoms
EENT: Reports No Symptoms
Respiratory: Reports No Symptoms
Cardiac: Reports No Symptoms
Abdomen/GI: Reports No Symptoms
: Reports No Symptoms
Musculoskeletal: Reports Edema
Skin: Reports Other (Heel wound)
Physical Exam
Vital Signs
Temp Pulse Resp BP Pulse Ox
98 F 84 20 105/50 99
01/14/24 07:35 01/14/24 07:35 01/14/24 07:35 01/14/24 07:35 01/14/24 07:35
Lab Results
01/12/24 08:03
01/12/24 08:03
Physical Exam
General: No Apparent Distress
HEENT: Normocephalic and Atraumatic
Respiratory: Non Labored Respirations
Cardiac: Negative JVD
GI: Soft and Non Tender
Musculoskeletal: No Clubbing and No Cyanosis
Skin: Other (See wound care notes for images)
Neuro: Awake, Alert and Oriented
Psych: Calm
Pulses: Bilateral Femoral: +2
Assessment / Plan
-
Plan/CLTI - peripheral arterial disease, chronic limb threatening ischemia with wound. I discussed with patient concern with wound and peripheral arterial disease of chronic limb threatening ischemia. Discussed recommendation for angiography.
Discussed procedure at length. Discussed expected outcomes to include: #1 successful endovascular revascularization, #2 need for staged surgical intervention, #3 nonreconstructable small vessel disease with persistent limb threat risk. Discussed
risks of procedure including but not limited to bleeding, arterial injury/worsened or acute limb ischemia, renal failure. He understands all these things and wishes to proceed. Will plan likely left lower extremity arteriogram on 01/15/2024.
Would medically optimize prior. Significant cardiac risk factor, may benefit from cardiology evaluation as they have recently seen him and treated him a few months ago. In addition would recommend renal evaluation as well preprocedurally given CKD.
[2024-01-13] MEDS: TYLENOL 650 MG PO (16:30)
--- NOTE | 2024-01-13 16:34 | W.PN.HOSP.TC ---
Today's Communication/Plan
-
Vasc Surgery consult
Assessment / Plan
Assessment / Plan
Assessment/Plan
88-year-old male with diabetes mellitus type 2 pulmonary fibrosis, CAD status post PCI x 4 last being October 2023, heart failure, history of ambulatory dysfunction due to arthritis of right knee presented on January 11, 2024 from [facility] due to
left heel wound. Patient reports he developed the bilateral heel pressure wounds (left worse than the right) from being in and out of hospitals and nursing homes. He recently had fever and chills at [facility] and received intravenous antibiotics at
[facility]. Wound nurse recently noted LLE edema and erythema and sent him to the ER. X-RAY showed no osteomyelitis.
#LLE Cellulitis
#Left calcaneus decubitus wound with eschar - not infected
MRI: 1. No MRI evidence for acute osteomyelitis or abscess in the left hindfoot.
2. Large region of nonenhancing devitalized subcutaneous fat posterior to the calcaneus deep to a chronic posterior heel wound. Moderate cellulitis in the distal left lower leg, ankle, and foot.
3. Large plantar calcaneal enthesophyte and chronic plantar fasciitis.
4. Mild tendinosis of the distal Achilles tendon.
5. 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
6. Severe acute on chronic muscle denervation.
-Initially Vancomycin was given, now transitioned to Cefazolin
-Appreciated ID
-Elevation of LLE, compression of LLE during the day
-Wound Care consult
ASPVD:
will consult Vasc Surgery
RIGHT LOWER EXTREMITY: ANNE MARIE unmeasurable due to noncompressible arteries. TBI minimally reduced at 0.67. Arterial duplex examination reveals multiphasic waveforms from the common femoral artery through the popliteal artery with no focal
velocity elevations to suggest significant stenosis. Multiphasic continuous Doppler waveforms are demonstrated in the posterior tibial artery and dorsalis pedis artery.
LEFT LOWER EXTREMITY: ANNE MARIE unmeasurable due to noncompressible arteries. TBI severely reduced at 0.36. Arterial duplex examination reveals multiphasic waveforms from the common femoral artery through the distal superficial femoral artery. There is
a focal velocity elevation in the popliteal artery along with a transition to monophasic waveforms (169 cm/s; ratio 2.9) suggesting a greater than 50% stenosis at this location. Plaque is identified in the popliteal artery. Monophasic continuous
Doppler waveforms are demonstrated in the posterior tibial artery and dorsalis pedis artery. 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
#History of Respiratory distress
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
-should have PFTs and further work up done outpatient
-f/u pulm outpatient
#Ischemic cardiomyopathy, acute on chronic HFrEF
�Continue home GDMT as tolerated
-ARB not listed on home medications, although patient was discharged on ARB in October 2023
#History of Transaminitis
#DM II
-Sliding scale insulin
-Depending on trends, add on home long-acting and short-acting Insulin
#Recent NSTEMI
#CAD
- recent angioplasty and partially successful treatment with shockwave IVL reducing distal left main/ostial circumflex stenosis from 95% to 30-40% severity 11/22/23
- Successful PCI with JUAN RAMON to the RUBI-LAD touchdown 11/25/23
- DAPT ASA/Plavix continued, continue BB, ARB
- Cardiac rehab as outpatient
a1c 6.9%
#Tachyarrhythmia due to new onset atrial fibrillation with RVR - now rate controlled
#MV-CAD s/p CABG with Hx of PCI x3
#GERD
#DM type II
#Hypertension
#Hyperlipidemia
#Mild aortic stenosis
#CKD
#History of ambulatory dysfunction due to arthritis of right knee
DVT Prophylaxis: Heparin
Code Status: Full Code
Anticipated Discharge: > 48 hours
Subjective/Interval History
-
Date of Service: January 13, 2024
Awake, alert, hard of hearing, but answering questions appropriately
Objective Data
-
Vital Signs:
Vital Signs
Temp Pulse Resp BP Pulse Ox
97.9 F 71 18 110/60 96
01/13/24 15:23 01/13/24 15:23 01/13/24 15:23 01/13/24 15:23 01/13/24 15:23
I&O
01/12/24 01/13/24 01/14/24
06:59 06:59 06:59
Intake Total 720 / 720
Balance 720 / 720
Review of Systems
-
History Source: Patient and Coordinated Provider
Constitutional: Denies Fever
EENT: Reports No Symptoms Reported
Respiratory: Reports No Symptoms
Cardiac: Reports No Symptoms
Abdomen/GI: Reports No Symptoms
Genitourinary: Reports No Symptoms
Physical Exam
-
General: Well Developed, Well Nourished and No Apparent Distress
HEENT: Normocephalic, Atraumatic, Moist Mucous Membranes and Hearing Impaired
Respiratory: Clear to Auscultation; Negative Wheezes, Rales or Rhonchi
Cardiac: Regular Rhythm and S1/S2
GI: Soft, Nontender and Nondistended
Musculoskeletal: No Clubbing, No Cyanosis, No Edema and Other (significant muscle wasting of bilateral LE)
Skin: Warm, Dry and Rash (left lower extremity cellulitis)
Neuro: Awake and Alert
--- NOTE | 2024-01-13 17:22 | W.PN.UPDATE ---
Addendum entered and electronically signed by Nolberto Correa MD 01/13/24 17:32:
Discussed with his daughter - Nicci Muro via phone as per patient request. Discussed with her findings/plan.
Original Note:
Update Note
Progress Note Update
88-year-old male asked to evaluate regarding left heel ulceration. Patient notes he has been in and out of the hospital for last few months with history of coronary artery disease. Underwent coronary angioplasty in May and then again in July
or August of this year. Prior history of CABG. He was in rehab and notes that his right knee was giving him great troubles. He is nonoperative it was felt. However he does not walk now as a result. And therefore due to all these factors, and bed
bound status, he developed a left heel ulcer and smaller right heel ulcer. No prior lower extremity vascular procedures. Denies any lower extremity angioplasty/stent/surgery. He does note history of CKD stage III. He does also note history of
diabetes. Denies any tobacco use. On exam/she is awake and alert. Head is normocephalic and atraumatic. Eyes are anicteric. Neck is soft without jugular venous distention. Breathing is unlabored. 1+ radial pulses palpable bilaterally.
Abdomen is soft, nondistended, nontender. Lower extremity with 2+ femoral pulses palpable. Nonpalpable distally bilaterally. Feet are both warm. No rubor, no ulcerations. Wound care pictures reviewed.
Noninvasive studies reviewed.
Plan/CLTI - peripheral arterial disease, chronic limb threatening ischemia with wound. I discussed with patient concern with wound and peripheral arterial disease of chronic limb threatening ischemia. Discussed recommendation for angiography.
Discussed procedure at length. Discussed expected outcomes to include: #1 successful endovascular revascularization, #2 need for staged surgical intervention, #3 nonreconstructable small vessel disease with persistent limb threat risk. Discussed
risks of procedure including but not limited to bleeding, arterial injury/worsened or acute limb ischemia, renal failure. He understands all these things and wishes to proceed. Will plan likely left lower extremity arteriogram on 01/15/2024.
Would medically optimize prior. Significant cardiac risk factor, may benefit from cardiology evaluation as they have recently seen him and treated him a few months ago. In addition would recommend renal evaluation as well preprocedurally given CKD.
[2024-01-13] MEDS: LIPITOR 40 MG PO (17:24)
[2024-01-13 19:46] VITALS: BP 125/64
[2024-01-13 21:17] LABS: Glucose - Point of Care 229 mg/dl (70-99)
[2024-01-13 23:23] VITALS: BP 126/64
[2024-01-13] MEDS: LANTUS 0.1 UNITS SC (23:47)
[2024-01-14] VITALS (10 sets, daily range): BP systolic 95–131; BP diastolic 50–68; PULSE 79; O2SAT 98; BMI 24.7
[2024-01-14] MEDS: ANCEF 10 IV ×3 (05:42→21:38)
[2024-01-14 07:45] LABS: Glucose - Point of Care 146 mg/dl (70-99)
[2024-01-14] MEDS: TOPROL XL 12.5 MG PO ×2 (07:48→19:33)
[2024-01-14] MEDS: NOVOLOG FLEXPEN-LOW RESISTANCE SC (07:48)
[2024-01-14] MEDS: LOW STRENGTH ASPIRIN 81 MG PO (07:48)
[2024-01-14] MEDS: ProAmatine 2.5 MG PO ×3 (07:48→17:17)
[2024-01-14] MEDS: MAGNESIUM OXIDE 500 MG PO ×2 (07:48→19:32)
[2024-01-14] MEDS: PLAVIX 75 MG PO (07:49)
[2024-01-14] MEDS: PROTONIX 20 MG PO (07:49)
[2024-01-14] MEDS: HEPARIN 5000 UNITS SC ×2 (07:49→19:32)
[2024-01-14] MEDS: LASIX 40 MG PO (07:49)
[2024-01-14] MEDS: HYDROPHOR 1 APPLIC TOPICAL (07:54)
--- NOTE | 2024-01-14 09:22 | PN.CDI ---
CDI
- -
CDI:
Physician Documentation Request
Admit Date: 01/11/24 18:15
Dear Doctor Vu,
Please review the following and provide your response in the progress notes.
Clinical Indicators:
Pt admitted with LLE cellulitis/Limb Ischemia PVD/Diabetes
A1C 6.9
Progress notes 01/11 &01/12, ' #DM II Sliding scale insulin Depending on trends, add on home long-acting and short-acting Insulin...'
Please clarify the relationship between these conditions:
Yes, _LLE cellulitis__ is related to/associated with/due to _Diabetes_.
No, _LLE _Cellulitis _ is not related to/associated with/due to _Diabetes __ but it is due to ___. (Please specify)
Unable to determine
Use of terms such as suspected, likely, concern for, or probable (associated with a specific diagnosis that is being evaluated, monitored, or treated as if it exists) are acceptable and can be coded in the inpatient setting, when documented at the
time of discharge.
Thank you,
Laisha Doty RN
CDI Specialist
[facility]
Please use your independent medical judgment in providing your response.
--- NOTE | 2024-01-14 10:15 | W.CS.POD ---
Consult Summary - Podiatry
-
Patient seen by Dr Lavon Hager 01/11/2024. Surgical consult also requested, however, it appears patient is not currently a surgical candidate for debridement of the heel decub at this time as result of non-infected/No calc osteo and poorly perfused
limb.
Will sign off, wound care team following and vascular intervention noted.
Thank you
[2024-01-14 11:10] LABS: Glucose - Point of Care 315 mg/dl (70-99)
--- NOTE | 2024-01-14 12:17 | W.CON.NEPH ---
Consultation
-
Date/Time Consultation Requested: 01/13/2024 6:00 PM
Date/Time Consultation Performed: 01/13/2024 12:00 PM
Requesting Provider: Dr. Womack
Performing Provider: Dr. Meredith
Reason for Consultation: Chronic kidney disease
Medical History
-
Chief Complaint: CKD stage 3a
History of Present Illness:
The patient is an 88-year-old male with a past medical history of CKD stage III AA maintains a baseline between 1-1.2. He has a history of congestive heart failure with ischemic STEM LEAD FORMER with reduced EF of 20-25% and is maintained on Lasix. He has
extensive coronary artery disease and has undergone PCI x 4 in October 2023. He does have a history of diabetes and is maintained on insulin. He is maintained on midodrine for chronic hypotension. He has a history of extensive peripheral vascular
disease. Patient reports he developed the bilateral heel pressure wounds left worse than the right from being in and out of hospitals and nursing homes. Last week at [facility], he had episode of fever and chills. He states he received IV antibiotic
x 2 doses at [facility]. He was then sent to the hospital for further evaluation of his heel wounds and is to undergo angiogram at the direction of vascular surgery tomorrow for left heel wound and we were consulted given his CKD.
Past Medical History
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
CAD s/p CABG with Hx of PCI x4
HFrEF EF 20-25%
Hypertension
Hyperlipidemia
DM type II
CKD3 (1-1.2)
Mild aortic stenosis
GERD
Nonmelanoma skin cancer (SCC of right yazidi)
Social History
Tobacco: Non-Smoker
Alcohol: None
Drug: None
Family History
no CKD
Allergies / Home Medications
Allergy/AdvReac Type Severity Reaction Status Date / Time
nitrofurantoin Allergy Unknown Verified 01/11/24 15:47
piperacillin [From Zosyn] Allergy Itching Verified 01/13/24 16:32
pollen extracts Allergy Unknown Verified 01/11/24 15:47
tazobactam [From Zosyn] Allergy Itching Verified 01/13/24 16:32
�Medication �Instructions �Recorded �Confirmed �Type
acetaminophen 325 mg tablet 650 mg PO Q6HPRN PRN mild pain 11/22/23 01/11/24 History
(Tylenol)
atorvastatin 40 mg tablet 40 mg PO HS High Cholesterol 11/22/23 01/11/24 History
clopidogrel 75 mg tablet 75 mg PO DAILY Blood Clot 11/22/23 01/11/24 History
Prevention/Tx
insulin aspart U-100 100 unit/mL 10 unit SC AC Diabetes 11/22/23 01/11/24 History
(3 mL) subcutaneous pen (Novolog
FlexPen U-100 Insulin aspart)
insulin degludec 100 unit/mL (3 15 unit SC HS Diabetes 11/22/23 01/11/24 History
mL) subcutaneous pen (Tresiba
FlexTouch U-100 insulin)
multivitamin 1 tab PO DAILY Supplement 11/22/23 01/11/24 History
pantoprazole 20 mg tablet,delayed 20 mg PO DAILY Gastrointestinal 11/22/23 01/11/24 History
release Issue
aspirin 81 mg chewable tablet 81 mg PO DAILY 01/11/24 01/11/24 History
bisacodyl 10 mg rectal suppository 10 mg SC DAILYPRN PRN if no bm on 01/11/24 01/11/24 History
(Dulcolax (bisacodyl)) 3rd day
furosemide 40 mg tablet (Lasix) 60 mg PO DAILY 01/11/24 01/11/24 History
lidocaine 5 % topical patch 1 patch topical DAILY 01/11/24 01/11/24 History
magnesium hydroxide 400 mg/5 mL 2,400 mg PO HSPRN PRN constipation 01/11/24 01/11/24 History
oral suspension (Milk of Magnesia)
magnesium oxide 500 mg PO BID 01/11/24 01/11/24 History
metoprolol succinate 25 mg 12.5 mg PO BID 01/11/24 01/11/24 History
tablet,extended release 24 hr
midodrine 2.5 mg tablet 2.5 mg PO TID 01/11/24 01/11/24 History
silver sulfadiazine 1 % topical 1 applic topical DAILY 01/11/24 01/11/24 History
cream (Silvadene)
sodium phosphates 19 gram-7 118 ml SC DAILYPRN PRN if no bm 01/11/24 01/11/24 History
gram/118 mL enema (Fleet Enema) aftr dulcolax
Review of Systems
-
History Source: Patient
All other systems: Negative unless noted
Musculoskeletal: Other (heel wounds L>R , left kneepain)
Physical Exam
Vital Signs
Vital Signs
Temp Pulse Resp BP Pulse Ox
97.8 F 88 19 109/60 93
01/14/24 11:02 01/14/24 11:02 01/14/24 11:02 01/14/24 11:02 01/14/24 11:02
Lab Results
01/12/24 08:03
01/12/24 08:03
WBC 6.6 10^3/uL (4.8-10.8) 01/12/24 08:03
RBC 3.23 10^6/uL (4.70-6.10) L 01/12/24 08:03
Hgb 9.9 g/dL (13.0-18.0) L 01/12/24 08:03
Hct 28.8 % (39.0-52.0) L 01/12/24 08:03
Plt Count 232 10^3/uL (130-400) 01/12/24 08:03
Sodium 136 mmol/L (135-145) 01/12/24 08:03
Potassium 4.3 mmol/L (3.5-5.1) 01/12/24 08:03
Chloride 101 mmol/L (98-107) 01/12/24 08:03
Carbon Dioxide 26 mmol/L (22-30) 01/12/24 08:03
BUN 32 mg/dl (9-20) H 01/12/24 08:03
Creatinine 1.0 mg/dL (0.7-1.3) 01/12/24 08:03
eGFR > 60.00 01/12/24 08:03
Glucose 143 mg/dl (70-99) H 01/12/24 08:03
Calcium 8.8 mg/dl (8.4-10.2) 01/12/24 08:03
Albumin 3.3 g/dl (3.5-5.0) L 01/11/24 15:51
Physical Exam
General: AOx3, Nontoxic , NAD
HEENT: PERRL, EOMI, Anicteric, Conjunctivae Clear, Ear/Nose Intact, Hearing Normal, Oropharynx Clear/Moist, Dentition Intact, Facial Symmetry, Neck Supple, Neck: Trachea Midline, No JVD and No Thyromegaly, no Bruits
Respiratory: Clear to auscultation bilaterally with normal lung excursion
Cardiac: S1/S2 and Regular Rate/Rhythm
Breast: Deferred by me
Abdomen: Soft, Nontender, Nondistended, Normal Bowel Sounds and No Hepatosplenomegaly
Rectal: Deferred by Provider
Genito-urinary: No Costovertebral Tenderness
Extremities: No Clubbing, No Cyanosis and No Edema,(left heel: large wound unstageable with black eschar over wound, no drainage, no significant surrounding erythema)
Skin: No Rash or open lesions
Neuro: Nonfocal/Grossly Intact, CN II-XII (Intact) and Strength (Musculoskeletal exam 5 out of 5 both upper and lower extremities)
Hematologic/Lymphatic: No Cervical Lymphadenopathy, No Submandibular Lymphadenopathy and No Supraclavicular Lymphadenopathy
Psych: Mood/afflect pleasant, Insight/judgement good and Appropriate
Vascular: plus 2 radial pulses, no DP pulses palpable
Data Reviewed
-
MRI: Report Reviewed by me (MRI of foot revealed no acute osteomyelitis or abscess in the left hindfoot moderate cellulitis noted along left leg ankle and foot)
Labs: Labs Reviewed by me (BMP CBC)
Old Records: Reviewed (Urinalysis 11/26/2023 bland: creatinine 1.2 as of 01/09/24)
Assessment/Plan
-
Impression:
CKD stage IIIa (1-1.2)
Left lower extremity heel cellulitis/wound
Ischemic cardiomyopathy with EF of 20 to 25%
Diabetes II
Peripheral vascular disease
Coronary artery disease with history of CABG and multiple PCI
Suspected idiopathic pulmonary fibrosis
History of recent non-ST elevation LA in October 2023
History of atrial fibrillation
Chronic hypotension maintained on midodrine
Plan:
CKD stage 3a
-Creatinine is at its baseline
-Recent UA bland likely indicative of underlying ischemic nephropathy and/or cardiorenal causality of CKD
-Blood pressure currently well-controlled on midodrine
-Would hold Lasix a.m. for angiogram scheduled on 01/15/2024
-Will provide IV fluids contrast prophylaxis cautiously given patient's history of significant congestive heart failure with profound LV dysfunction prior to angiogram
-Patient currently does not appear to be volume overloaded in setting of congestive heart failure
[2024-01-14 12:56] LABS: Glucose - Point of Care 254 mg/dl (70-99)
[2024-01-14] MEDS: NOVOLOG FLEXPEN-LOW RESISTANCE 3 UNITS SC (12:56)
--- NOTE | 2024-01-14 13:19 | CON.CAR ---
Addendum entered and electronically signed by Anil Ruiz MD 01/14/24 16:40:
I saw and examined the patient.
The TERMINAL BLOCK ASSEMBLER's note was reviewed and I agree with the note.
Comment: 88-year-old male (known to Dr. Thomas, his primary chief minister), with coronary artery disease (CABG 2007, NSTEMI with PCI 10/2023), hypertension, dyslipidemia, type 2 diabetes mellitus, chronic kidney disease, mild aortic stenosis,
prostate cancer, nonmelanoma skin cancer, and prostate cancer who presented to the emergency department on 01/11/2024 with worsening redness to his left heel wound. He was evaluated by infectious disease, vascular surgery, and podiatry. The plan
is for angiography by vascular surgery. Nephrology evaluated the patient today given his chronic kidney disease. Cardiology has been consulted for cardiac risk assessment in the setting of ischemic cardiomyopathy.
- Echo today showed improved LVEF at 40-45% with moderate
- He is at an elevated risk, however, he has no symptoms and is not prohibitive risk, he needs no further testing or medication
Original Note:
Consultation
Consultation Request
Date/Time Consultation Requested: 01/14/2024 12:15
Date/Time Consultation Performed: 01/14/2024 13:20
Requesting Provider: Dr. Womack
Performing Provider: AFUA Salazar for Dr. Ruiz
Reason for Consultation: Pre-op risk assessment
Medical History
-
Chief Complaint: Worsening redness to left heel wound
History of Present Illness:
Ron Corona is an 88-year-old male (known to Dr. Thomas, his primary chief minister), with coronary artery disease (CABG 2007, NSTEMI with PCI 10/2023), hypertension, dyslipidemia, type 2 diabetes mellitus, chronic kidney disease, mild aortic
stenosis, prostate cancer, nonmelanoma skin cancer, and prostate cancer who presented to the emergency department on 01/11/2024 with worsening redness to his left heel wound. He was evaluated by infectious disease, vascular surgery, and podiatry.
The plan is for angiography by vascular surgery. Nephrology evaluated the patient today given his chronic kidney disease. Cardiology has been consulted for cardiac risk assessment in the setting of ischemic cardiomyopathy. During his last
admission he was found to have an EF of 20-25%. He had PCI to RUBI�LAD graft 11/25/2023. He has been maintained on DAPT. His GDMT is limited by both blood pressure and renal insufficiency. He is having no chest pain. He denies orthopnea and PND.
Past Medical History
Past Medical History: CAD, Cancer (Prostate), CHF (ICM, HFrEF), HTN, Hypercholesterolemia, IDDM, Renal Failure (CKD) and Valvular Disease (Mild aortic stenosis)
Past Surgical History: Cardiac (CABG [2007])
Social History
Tobacco: Non-Smoker
Alcohol: None
Drug: None
Living: [facility]
Employment: Retired
Family History
Family History: Reviewed & Not Pertinent
Allergies / Home Medications
Allergy/AdvReac Type Severity Reaction Status Date / Time
nitrofurantoin Allergy Unknown Verified 01/11/24 15:47
piperacillin [From Zosyn] Allergy Itching Verified 01/13/24 16:32
pollen extracts Allergy Unknown Verified 01/11/24 15:47
tazobactam [From Zosyn] Allergy Itching Verified 01/13/24 16:32
�Medication �Instructions �Recorded �Confirmed �Type
acetaminophen 325 mg tablet 650 mg PO Q6HPRN PRN mild pain 11/22/23 01/11/24 History
(Tylenol)
atorvastatin 40 mg tablet 40 mg PO HS High Cholesterol 11/22/23 01/11/24 History
clopidogrel 75 mg tablet 75 mg PO DAILY Blood Clot 11/22/23 01/11/24 History
Prevention/Tx
insulin aspart U-100 100 unit/mL 10 unit SC AC Diabetes 11/22/23 01/11/24 History
(3 mL) subcutaneous pen (Novolog
FlexPen U-100 Insulin aspart)
insulin degludec 100 unit/mL (3 15 unit SC HS Diabetes 11/22/23 01/11/24 History
mL) subcutaneous pen (Tresiba
FlexTouch U-100 insulin)
multivitamin 1 tab PO DAILY Supplement 11/22/23 01/11/24 History
pantoprazole 20 mg tablet,delayed 20 mg PO DAILY Gastrointestinal 11/22/23 01/11/24 History
release Issue
aspirin 81 mg chewable tablet 81 mg PO DAILY 01/11/24 01/11/24 History
bisacodyl 10 mg rectal suppository 10 mg DC DAILYPRN PRN if no bm on 01/11/24 01/11/24 History
(Dulcolax (bisacodyl)) 3rd day
furosemide 40 mg tablet (Lasix) 60 mg PO DAILY 01/11/24 01/11/24 History
lidocaine 5 % topical patch 1 patch topical DAILY 01/11/24 01/11/24 History
magnesium hydroxide 400 mg/5 mL 2,400 mg PO HSPRN PRN constipation 01/11/24 01/11/24 History
oral suspension (Milk of Magnesia)
magnesium oxide 500 mg PO BID 01/11/24 01/11/24 History
metoprolol succinate 25 mg 12.5 mg PO BID 01/11/24 01/11/24 History
tablet,extended release 24 hr
midodrine 2.5 mg tablet 2.5 mg PO TID 01/11/24 01/11/24 History
silver sulfadiazine 1 % topical 1 applic topical DAILY 01/11/24 01/11/24 History
cream (Silvadene)
sodium phosphates 19 gram-7 118 ml DC DAILYPRN PRN if no bm 01/11/24 01/11/24 History
gram/118 mL enema (Fleet Enema) aftr dulcolax
Review of Systems
-
History Source: Patient
All other systems: Negative unless noted
Constitutional: No Symptoms
EENT: No Symptoms
Respiratory: No Symptoms
Cardiac: No Symptoms
Abdomen/GI: No Symptoms
: No Symptoms
Musculoskeletal: No Symptoms
Skin: No Symptoms
Neurological: No Symptoms
Endocrine: No Symptoms
Hematologic/Lymphatic: No Symptoms
Physical Exam
Vital Signs
Temp Pulse Resp BP Pulse Ox
97.8 F 88 19 109/60 93
01/14/24 11:02 01/14/24 11:02 01/14/24 11:02 01/14/24 11:02 01/14/24 11:02
Lab Results
01/12/24 08:03
01/12/24 08:03
Physical Exam
General: Well Developed, Well Nourished, No Apparent Distress and Comfortable
HEENT: Normocephalic, Anicteric and Moist Mucous Membranes
Respiratory: Clear and Non Labored Respirations
Cardiac: S1/S2, Regular Rhythm and Peripheral Edema (Trace bilateral lower extremity edema)
Breast: Deferred by me
GI: Soft, Non Tender, Non Distended and Normal Bowel Sounds
Rectal: Deferred by Provider
Genito-urinary: No Costovertebral Tender
Musculoskeletal: No Clubbing, No Cyanosis and No Edema
Skin: Warm and Dry
Neuro: AO x 3
Hematologic/Lymphatic: No Lymphadenopathy
Psych: Calm
Impression / Plan
-
BACKGROUND: 88M with ICM, HFrEF, CAD, NSTEMI (10/2023) Type II DM ,CKD, and left eye blindness presented with worsening redness to heel wound
Professor Of History: Formerly Dr. Gu, now Dr. Thomas
Preop risk assessment
-Denies anginal symptoms
-EKG ordered
-Update echocardiogram
Ischemic cardiomyopathy
HFrEF (LVEF %), chronic
-He does not appear to be in acute/decompensated heart failure
-GDMT as tolerated (limited by CKD and blood pressure)
-Beta-juan pablo: Metoprolol succinate
-SGLT2i: Would not initiate without nephrology recommendation (underlying CKD)
-ACEi/ARB: This was deferred during prior hospitalization due to LACEY
-MRA: None due to CKD
-Diuretic: Requires furosemide 60 to maintain euvolemia
-ICD: To be determined after echocardiogram
-Low-sodium diet, daily weight, I/O
Coronary artery disease
NSTEMI
-PCI to [facility] 11/25/2023
-The plan is for uninterrupted DAPT for 1 year from PCI (his primary chief minister would prefer lifelong)
-CABG [address] Andre Arnold ([facility])
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
-Vascular surgery is planning for angiography with possible revascularization or staged surgical intervention
Aortic stenosis, mild, updating echocardiogram
CKD 3, nephrology following
NSVT, noted prior to revascularization, continue metoprolol succinate
Type 2 diabetes, HgbA1c 6.9%, per primary service
Prostate cancer
Left eye blindness
Dyslipidemia, LDL at goal on atorvastatin 40 mg
Data Reviewed
-
Medical Tests (Nuc Med, Echo etc): Report Reviewed by me (Prior cardiac catheterization echocardiogram as above)
Labs: Labs Reviewed by me
Old Records: Reviewed (Outpatient cardiology note)
--- NOTE | 2024-01-14 13:30 | W.PN.ID1 ---
Date of Service
Date of Service: January 14, 2024
Today's Communication
Continue cefazolin.
Assessment / Plan
# LLE cellulitis, improving
# Left calcaneus large wound with eschar
# LLE PAD - ANNE MARIE 0.36
- For vascular intervention tomorrow
- wound swab E. coli, S. aureus
- MRI left foot without osteo
- Continue cefazolin (d3)
-Appreciate Wound Care recs.
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
CAD s/p CABG with Hx of PCI x4
HFrEF
Hypertension
Hyperlipidemia
DM type II
CKD3
Mild aortic stenosis
GERD
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
Chief Complaint
-: Cellulitis
Subjective / Review of Systems
No complaints.
Vital Signs / Physical Exam
Vital Signs
Vital Signs
Temp Pulse Resp BP Pulse Ox
97.8 F 88 19 109/60 93
01/14/24 11:02 01/14/24 11:02 01/14/24 11:02 01/14/24 11:02 01/14/24 11:02
Physical Exam
Constitutional: No Acute Distress and Comfortable
Gastrointestinal: Soft, Non Tender, Non Distended and Normal Bowel Sounds
Extremities: Edema (LLE resolving) and Erythema (LLE decreased)
Neurological: AO x 3
Objective Data
Lab Data
Lab Results
01/12/24 08:03
01/12/24 08:03
Estimated Creat Clear 53 ml/min 01/12/24 08:03
Total Bilirubin 0.6 mg/dl (0.2-1.3) 01/11/24 15:51
AST 50 U/L (17-59) 01/11/24 15:51
ALT 27 U/L (0-50) 01/11/24 15:51
Alkaline Phosphatase 143 U/L (38-126) H 01/11/24 15:51
Most recent labs reviewed.
Micro Results:
01/11/24 16:34 Wound Culture - Preliminary
Foot - Left Escherichia coli
Staphylococcus aureus
Gram Stain - Preliminary
01/12/24 02:14 MRSA Screen - Final
Nose No Methicillin Resistant Staphylococcus aureus isolated.
01/11/24 Left foot XRAY: No acute abnormalities
01/11/24 Left periph vasc US: No DVT
01/13/24 MRI left foot wo and w: No MRI evidence for acute osteomyelitis or abscess in the left hindfoot. Large region of nonenhancing devitalized subcutaneous fat posterior to the calcaneus deep to a chronic posterior heel wound. Moderate
cellulitis in the distal left lower leg, ankle, and foot.
--- NOTE | 2024-01-14 14:22 | W.PN.HOSP.TC ---
Today's Communication/Plan
-
Planned Vascular intervention 01/14
Assessment / Plan
Assessment / Plan
Assessment/Plan
88-year-old male with diabetes mellitus type 2 pulmonary fibrosis, CAD status post PCI x 4 last being October 2023, heart failure, history of ambulatory dysfunction due to arthritis of right knee presented on January 11, 2024 from [email or web address] due to
left heel wound. Patient reports he developed the bilateral heel pressure wounds (left worse than the right) from being in and out of hospitals and nursing homes. He recently had fever and chills at [email or web address] and received intravenous antibiotics at
[email or web address]. Wound nurse recently noted LLE edema and erythema and sent him to the ER. X-RAY showed no osteomyelitis.
#LLE Cellulitis
#Left calcaneus decubitus wound with eschar - not infected
MRI: 1. No MRI evidence for acute osteomyelitis or abscess in the left hindfoot.
2. Large region of nonenhancing devitalized subcutaneous fat posterior to the calcaneus deep to a chronic posterior heel wound. Moderate cellulitis in the distal left lower leg, ankle, and foot.
3. Large plantar calcaneal enthesophyte and chronic plantar fasciitis.
4. Mild tendinosis of the distal Achilles tendon.
5. 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
6. Severe acute on chronic muscle denervation.
-Initially Vancomycin was given, now transitioned to Cefazolin
-Appreciated ID
-Elevation of LLE, compression of LLE during the day
-Wound Care consult
ASPVD:
consult Vasc Surgery
Dr Correa requested Nephro and Cardio eval preoperatively, orders placed and input appreciated
planned angiogram 01/14
RIGHT LOWER EXTREMITY: ANNE MARIE unmeasurable due to noncompressible arteries. TBI minimally reduced at 0.67. Arterial duplex examination reveals multiphasic waveforms from the common femoral artery through the popliteal artery with no focal
velocity elevations to suggest significant stenosis. Multiphasic continuous Doppler waveforms are demonstrated in the posterior tibial artery and dorsalis pedis artery.
LEFT LOWER EXTREMITY: ANNE MARIE unmeasurable due to noncompressible arteries. TBI severely reduced at 0.36. Arterial duplex examination reveals multiphasic waveforms from the common femoral artery through the distal superficial femoral artery. There is
a focal velocity elevation in the popliteal artery along with a transition to monophasic waveforms (169 cm/s; ratio 2.9) suggesting a greater than 50% stenosis at this location. Plaque is identified in the popliteal artery. Monophasic continuous
Doppler waveforms are demonstrated in the posterior tibial artery and dorsalis pedis artery. 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
#History of Respiratory distress
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
-should have PFTs and further work up done outpatient
-f/u pulm outpatient
#Ischemic cardiomyopathy, acute on chronic HFrEF
�Continue home GDMT as tolerated
-ARB not listed on home medications, although patient was discharged on ARB in October 2023
#History of Transaminitis
#DM II
Yes, LLE cellulitis is related to/associated with Diabetes along with his ASPVD
-Sliding scale insulin
-Depending on trends, add on home long-acting and short-acting Insulin
#Recent NSTEMI
#CAD
- recent angioplasty and partially successful treatment with shockwave IVL reducing distal left main/ostial circumflex stenosis from 95% to 30-40% severity 11/22/23
- Successful PCI with JUAN RAMON to the RUBI-LAD touchdown 11/25/23
- DAPT ASA/Plavix continued, continue BB, ARB
- Cardiac rehab as outpatient
a1c 6.9%
#Tachyarrhythmia due to new onset atrial fibrillation with RVR - now rate controlled, currently in NSR
#MV-CAD s/p CABG with Hx of PCI x3
#GERD
#DM type II
#Hypertension
#Hyperlipidemia
#Mild aortic stenosis
#CKD
#History of ambulatory dysfunction due to arthritis of right knee
DVT Prophylaxis: Heparin
Code Status: Full Code
Anticipated Discharge: > 48 hours
Subjective/Interval History
-
Date of Service: January 14, 2024
More awake and conversant today
Objective Data
-
Vital Signs:
Vital Signs
Temp Pulse Resp BP Pulse Ox
97.8 F 88 19 109/60 93
01/14/24 11:02 01/14/24 11:02 01/14/24 11:02 01/14/24 11:02 01/14/24 11:02
I&O
01/13/24 01/14/24 01/15/24
06:59 06:59 06:59
Intake Total 720 / 720 1020 / 1020
Balance 720 / 720 1020 / 1020
Review of Systems
-
History Source: Patient and Coordinated Provider
Constitutional: Denies Fever
EENT: Reports No Symptoms Reported
Respiratory: Reports No Symptoms
Cardiac: Reports No Symptoms
Abdomen/GI: Reports No Symptoms
Genitourinary: Reports No Symptoms
Physical Exam
-
General: Well Developed, Well Nourished and No Apparent Distress
HEENT: Normocephalic, Atraumatic, Moist Mucous Membranes and Hearing Impaired
Respiratory: Clear to Auscultation; Negative Wheezes, Rales or Rhonchi
Cardiac: Regular Rhythm and S1/S2
GI: Soft, Nontender and Nondistended
Musculoskeletal: No Clubbing, No Cyanosis, No Edema and Other (significant muscle wasting of bilateral LE)
Skin: Warm, Dry and Rash (left lower extremity cellulitis)
Neuro: Awake and Alert
--- NOTE | 2024-01-14 16:03 | CARDSERVLU ---
Echocardiogram with Lumason completed after protocol screening completed. Allergies verified.
Patent IV site: ___rt hand__
IV site flushed with 0.9% NaCl pre and post administration.
Diluted bolus method utilized to enhance visualization of ventricular guerrero.
Total volume given: __3.0__ mL
Patient tolerated all procedures well without complications.
[2024-01-14 17:00] LABS: Glucose - Point of Care 305 mg/dl (70-99)
[2024-01-14] MEDS: NOVOLOG FLEXPEN-LOW RESISTANCE 4 UNITS SC (17:16)
[2024-01-14] MEDS: LIPITOR 40 MG PO (17:17)
[2024-01-14 21:20] LABS: Glucose - Point of Care 269 mg/dl (70-99)
[2024-01-14] MEDS: LANTUS 0.1 UNITS SC (21:38)
[2024-01-15] VITALS (18 sets, daily range): BP systolic 86–139; BP diastolic 53–90; BMI 24.6
--- NOTE | 2024-01-15 03:58 | DOWNTIME ---
There was a ITC Client Wax Pumper Downtime on 01/15/2024 from 0100 to 01/15/2024 at 0355. Downtime documentation of patient's care, including medication administrations, has been reconciled in the electronic record per guidelines. Refer to the
patient's paper chart under the miscellaneous tab to see printed paper medication records and downtime forms.
[2024-01-15] MEDS: ANCEF 10 IV ×2 (05:52→15:20)
--- NOTE | 2024-01-15 06:23 | PTCARENOTE ---
~01:20 heart monitor alarmed vent bigeminy. Pt asleep at time of alarm. Pt arousable. Pt denies SOB, difficulty breathing, chest pain, dizziness, and lightheadedness. AAXO3. VS: Temp 98.3, BP 108/55, O2 97 on RA, HR 80, and RR 18. Reviewed heart
monitor alarms. Vent Bigeminy alarmed at 21:11. Notified AFUA Marr (Linda). No new orders at this time. Plan of care ongoing.
~04:44 heart monitor alarmed vent bigeminy. At time heart monitor alarmed, nursing staff were changing pt. AAXO3. Pt conversing with nursing staff. Notified FAUA Marr. No new orders at this time.
~04:49 heart monitor alarmed sinus tach. HR >140 and did not sustain. HR converted back to sinus rhythm. AAXO3. Pt denied SOB, difficulty breathing, chest pain, dizziness, and lightheadedness. VS: Temp 97.5, BP 118/57, P2 96 on RA, HR 83, and RR 18.
Notified AFUA Marr. No new orders at this time. Plan of care ongoing.
[2024-01-15 07:45] LABS: Glucose - Point of Care 192 mg/dl (70-99)
[2024-01-15] MEDS: HEPARIN 5000 UNITS SC ×2 (08:00→19:56)
[2024-01-15] MEDS: TOPROL XL 12.5 MG PO ×2 (08:00→19:56)
[2024-01-15] MEDS: HYDROPHOR 1 APPLIC TOPICAL (08:00)
[2024-01-15] MEDS: PLAVIX 75 MG PO (08:00)
[2024-01-15] MEDS: LOW STRENGTH ASPIRIN 81 MG PO (08:00)
[2024-01-15] MEDS: ProAmatine 2.5 MG PO ×3 (08:00→17:23)
[2024-01-15] MEDS: NOVOLOG FLEXPEN-LOW RESISTANCE 1 UNITS SC ×3 (08:00→17:24)
[2024-01-15] MEDS: PROTONIX 20 MG PO (08:00)
[2024-01-15] MEDS: MAGNESIUM OXIDE 500 MG PO ×2 (08:00→19:56)
[2024-01-15 08:18] LABS: Hematocrit 33.4 % (39.0-52.0); Hemoglobin 11.3 g/dL (13.0-18.0); Mean Corp Hgb Conc. 33.8 g/dL (33.0-37.0); Mean Corpuscular Hgb 31.3 pg (27.0-31.0); Mean Corpuscular Volume 92.5 fL (80.0-94.0); Platelet Count 223 10^3/uL (130-400); Red Blood Cell Count 3.61 10^6/uL (4.70-6.10); White Blood Cell Count 5.8 10^3/uL (4.8-10.8)
[2024-01-15] MEDS: SODIUM BICARBONATE 1150 MEQ IV (09:34)
[2024-01-15 09:50] LABS: Blood Urea Nitrogen 23 mg/dl (9-20); Calcium 8.7 mg/dl (8.4-10.2); Carbon Dioxide 29 mmol/L (22-30); Chloride 98 mmol/L (98-107); Estimated Creatinine Clearance 59 ml/min; Glucose 191 mg/dl (70-99); Sodium 135 mmol/L (135-145); eGFR > 60.00
--- NOTE | 2024-01-15 10:14 | PTCARENOTE ---
Pt brought to clinical laboratory technologist recovery at this time. He was seen by Ambika Correa for consenting and anesthesiologist Dr Adams. VS :Hr 80 /NSR BP 138/90, sats 96% RA. Temporal temp 97.8 Right hand #22 IV patent with Bicarb solution infusing at 228 mls on
IV pump. Denies pain. No dentures or anything removable. Report to Radha GONZALEZ
--- NOTE | 2024-01-15 10:18 | W.SUR.PREOP ---
Pre-Operative Surgical Note
-
I have examined this patient prior to the performance of the scheduled procedure.
The patient's condition is unchanged from the time of the current History and
Physical and the patient is able to undergo the scheduled procedure.
--- NOTE | 2024-01-15 10:31 | PTCARENOTE ---
Addemdum :Doppler pedal pulses bilat. Pt moved to to vasc lab at 1032 am
--- NOTE | 2024-01-15 11:32 | W.SUR.POST ---
Surgical Immediate Post Op
Note
Pre Op Diagnosis: PAD
Post Op Diagnosis: Same
Procedure Performed: Left lower extremity arteriogram, left AT IVL (limited d/t catheter unable to pass) and balloon angioplasty
Primary Surgeon: Sunny
Anesthesia: Local and sedation
Estimated Blood Loss: Less than 2 cc
Fluids: See anesthesia flowsheet
Drains/Shunts: None
Specimens/Cultures: None
Doppler/Duplex/Angio (Y/N): Y
Complications: None
Operative Findings: Severe AT plaque
[2024-01-15 12:45] LABS: Glucose - Point of Care 182 mg/dl (70-99)
--- NOTE | 2024-01-15 14:30 | PTCARENOTE ---
patient was received from senior label specialist at approximately 1345 drowsy but verbally arousable. he was transferred from the stretcher to his bed with the extensive assistance of four staff members. right groin pressure dressing - clean, dry and intact.
pedal pulses present with the use of the doppler. sodium bicarbonate restarted at 1545 for 6 hours. patient is tolerating his diet, denies any discomfort/pain. patient's bed is in the lowest position possible
--- NOTE | 2024-01-15 15:32 | W.PN.HOSP.TC ---
Today's Communication/Plan
-
arteriogram today
Assessment / Plan
Assessment / Plan
Assessment/Plan
88-year-old male with diabetes mellitus type 2 pulmonary fibrosis, CAD status post PCI x 4 last being October 2023, heart failure, history of ambulatory dysfunction due to arthritis of right knee presented on January 11, 2024 from [facility] due to
left heel wound. Patient reports he developed the bilateral heel pressure wounds (left worse than the right) from being in and out of hospitals and nursing homes. He recently had fever and chills at [facility] and received intravenous antibiotics at
[facility]. Wound nurse recently noted LLE edema and erythema and sent him to the ER. X-RAY showed no osteomyelitis.
#LLE Cellulitis
#Left calcaneus decubitus wound with eschar - not infected
MRI: 1. No MRI evidence for acute osteomyelitis or abscess in the left hindfoot.
2. Large region of nonenhancing devitalized subcutaneous fat posterior to the calcaneus deep to a chronic posterior heel wound. Moderate cellulitis in the distal left lower leg, ankle, and foot.
3. Large plantar calcaneal enthesophyte and chronic plantar fasciitis.
4. Mild tendinosis of the distal Achilles tendon.
5. 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
6. Severe acute on chronic muscle denervation.
-Initially Vancomycin was given, now transitioned to Cefazolin
-Appreciated ID
-Elevation of LLE, compression of LLE during the day
-Wound Care consult
ASPVD:
consult Vasc Surgery
Dr Correa requested Nephro and Cardio eval preoperatively, orders placed and input appreciated
underwent angioplasty 01/14
RIGHT LOWER EXTREMITY: ANNE MARIE unmeasurable due to noncompressible arteries. TBI minimally reduced at 0.67. Arterial duplex examination reveals multiphasic waveforms from the common femoral artery through the popliteal artery with no focal
velocity elevations to suggest significant stenosis. Multiphasic continuous Doppler waveforms are demonstrated in the posterior tibial artery and dorsalis pedis artery.
LEFT LOWER EXTREMITY: ANNE MARIE unmeasurable due to noncompressible arteries. TBI severely reduced at 0.36. Arterial duplex examination reveals multiphasic waveforms from the common femoral artery through the distal superficial femoral artery. There is
a focal velocity elevation in the popliteal artery along with a transition to monophasic waveforms (169 cm/s; ratio 2.9) suggesting a greater than 50% stenosis at this location. Plaque is identified in the popliteal artery. Monophasic continuous
Doppler waveforms are demonstrated in the posterior tibial artery and dorsalis pedis artery. 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
#History of Respiratory distress
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
-should have PFTs and further work up done outpatient
-f/u pulm outpatient
#Ischemic cardiomyopathy, acute on chronic HFrEF
�Continue home GDMT as tolerated
-ARB not listed on home medications, although patient was discharged on ARB in October 2023
#History of Transaminitis
#DM II
Yes, LLE cellulitis is related to/associated with Diabetes along with his ASPVD
-Sliding scale insulin
-Depending on trends, add on home long-acting and short-acting Insulin
#Recent NSTEMI
#CAD
- recent angioplasty and partially successful treatment with shockwave IVL reducing distal left main/ostial circumflex stenosis from 95% to 30-40% severity 11/22/23
- Successful PCI with JUAN RAMON to the RUBI-LAD touchdown 11/25/23
- DAPT ASA/Plavix continued, continue BB, ARB
- Cardiac rehab as outpatient
a1c 6.9%
#Tachyarrhythmia due to new onset atrial fibrillation with RVR - now rate controlled, currently in NSR
#MV-CAD s/p CABG with Hx of PCI x3
#GERD
#DM type II
#Hypertension
#Hyperlipidemia
#Mild aortic stenosis
#CKD
#History of ambulatory dysfunction due to arthritis of right knee
DVT Prophylaxis: Heparin
Code Status: Full Code
Anticipated Discharge: > 48 hours
Subjective/Interval History
-
Date of Service: January 15, 2024
Pt seen prior to planned angiogram
Objective Data
-
Labs:
Laboratory Results
01/15/24
06:46
WBC 5.8
Hgb 11.3 L
Hct 33.4 L
Plt Count 223
Sodium 135
Potassium 4.0
Chloride 98
Carbon Dioxide 29
BUN 23 H
Creatinine 0.9
Glucose 191 H
Calcium 8.7
Vital Signs:
Vital Signs
Temp Pulse Resp BP Pulse Ox
98.3 F 77 20 107/58 97
01/15/24 14:50 01/15/24 14:50 01/15/24 14:50 01/15/24 14:50 01/15/24 14:50
I&O
01/14/24 01/15/24 01/16/24
06:59 06:59 06:59
Intake Total 1020 / 1020 840 / 840
Balance 1020 / 1020 840 / 840
Review of Systems
-
History Source: Patient and Coordinated Provider
Constitutional: Denies Fever
EENT: Reports No Symptoms Reported
Respiratory: Reports No Symptoms
Cardiac: Reports No Symptoms
Abdomen/GI: Reports No Symptoms
Genitourinary: Reports No Symptoms
Physical Exam
-
General: Well Developed, Well Nourished and No Apparent Distress
HEENT: Normocephalic, Atraumatic, Moist Mucous Membranes and Hearing Impaired
Respiratory: Clear to Auscultation; Negative Wheezes, Rales or Rhonchi
Cardiac: Regular Rhythm and S1/S2
GI: Soft, Nontender and Nondistended
Musculoskeletal: No Clubbing, No Cyanosis, No Edema and Other (significant muscle wasting of bilateral LE)
Skin: Warm, Dry and Rash (left lower extremity cellulitis)
Neuro: Awake and Alert
--- NOTE | 2024-01-15 15:37 | W.PN.NEPH.PH ---
Today's Communication / Plan
-
IVF
Assessment/Plan
-
Impression:
CKD stage IIIa (1-1.2)
Left lower extremity heel cellulitis/wound
Ischemic cardiomyopathy with EF of 20 to 25%
Diabetes II
Peripheral vascular disease
Coronary artery disease with history of CABG and multiple PCI
Suspected idiopathic pulmonary fibrosis
History of recent non-ST elevation [place] in October 2023
History of atrial fibrillation
Chronic hypotension maintained on midodrine
Plan:
follow BMP
bicarb IVF today, 80ml/hr x 6 hrs post procedure
no lasix today, can restart lasix tomorrow
-
-
Date of Service: January 15, 2024
CC / HPI / ROS
-
Chief Complaint:
CKD
History of Present Illness:
Cr stable at 0.9
BP stable
s/p LLE Agram/angioplasty
Review of Systems:
no CP/SOB
Labs
-
Labs:
WBC 5.8 10^3/uL (4.8-10.8) 01/15/24 06:46
RBC 3.61 10^6/uL (4.70-6.10) L 01/15/24 06:46
Hgb 11.3 g/dL (13.0-18.0) L 01/15/24 06:46
Hct 33.4 % (39.0-52.0) L 01/15/24 06:46
Plt Count 223 10^3/uL (130-400) 01/15/24 06:46
Sodium 135 mmol/L (135-145) 01/15/24 06:46
Potassium 4.0 mmol/L (3.5-5.1) 01/15/24 06:46
Chloride 98 mmol/L (98-107) 01/15/24 06:46
Carbon Dioxide 29 mmol/L (22-30) 01/15/24 06:46
BUN 23 mg/dl (9-20) H 01/15/24 06:46
Creatinine 0.9 mg/dL (0.7-1.3) 01/15/24 06:46
eGFR > 60.00 01/15/24 06:46
Glucose 191 mg/dl (70-99) H 01/15/24 06:46
Calcium 8.7 mg/dl (8.4-10.2) 01/15/24 06:46
Albumin 3.3 g/dl (3.5-5.0) L 01/11/24 15:51
Physical Exam
-
Vital Signs:
Vital Signs
Temp Pulse Resp BP Pulse Ox
98.3 F 77 20 107/58 97
01/15/24 14:50 01/15/24 14:50 01/15/24 14:50 01/15/24 14:50 01/15/24 14:50
Cardiovascular:: Regular rate and rhythm
Respiratory:: Bilateral: Coarse
Lung Excursion:: Normal
Abdomen:: Nontender and Soft
Bowel Sounds:: Normal
Extremity Edema:: None: Bilateral:
[2024-01-15 16:16] LABS: Glucose - Point of Care 157 mg/dl (70-99)
--- NOTE | 2024-01-15 16:16 | W.PN.ID1 ---
Date of Service
Date of Service: January 15, 2024
Today's Communication
Transition cefazolin (d4) to cephalexin 1000mg po q8h through 01/21/24.
Assessment / Plan
# LLE cellulitis, improving
# Left calcaneus large wound with eschar
# LLE PAD - ANNE MARIE 0.36
- s/p balloon angioplasty intervention 01/14
- wound swab E. coli, S. aureus
- MRI left foot without osteo
- Transition cefazolin (d4) to cephalexin 1000mg po q8h through 01/21/24.
-Continue wound care
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
CAD s/p CABG with Hx of PCI x4
HFrEF
Hypertension
Hyperlipidemia
DM type II
CKD3
Mild aortic stenosis
GERD
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
Chief Complaint
-: Cellulitis
Vital Signs / Physical Exam
Vital Signs
Vital Signs
Temp Pulse Resp BP Pulse Ox
98.3 F 77 20 107/58 97
01/15/24 14:50 01/15/24 14:50 01/15/24 14:50 01/15/24 14:50 01/15/24 14:50
Physical Exam
Constitutional: No Acute Distress and Comfortable
Gastrointestinal: Soft, Non Tender and Non Distended
Extremities: Edema (LLE decreased) and Erythema (LLE decreased)
Objective Data
Lab Data
Lab Results
01/15/24 06:46
01/15/24 06:46
Estimated Creat Clear 59 ml/min 01/15/24 06:46
Total Bilirubin 0.6 mg/dl (0.2-1.3) 01/11/24 15:51
AST 50 U/L (17-59) 01/11/24 15:51
ALT 27 U/L (0-50) 01/11/24 15:51
Alkaline Phosphatase 143 U/L (38-126) H 01/11/24 15:51
Most recent labs reviewed.
Micro Results:
01/11/24 16:34 Wound Culture - Final
Foot - Left Escherichia coli
S aureus-Methicillin Sensitive
Gram Stain - Final
01/12/24 02:14 MRSA Screen - Final
Nose No Methicillin Resistant Staphylococcus aureus isolated.
01/11/24 Left foot XRAY: No acute abnormalities
01/11/24 Left periph vasc US: No DVT
01/13/24 MRI left foot wo and w: No MRI evidence for acute osteomyelitis or abscess in the left hindfoot. Large region of nonenhancing devitalized subcutaneous fat posterior to the calcaneus deep to a chronic posterior heel wound. Moderate
cellulitis in the distal left lower leg, ankle, and foot.
--- NOTE | 2024-01-15 16:43 | OR.RPT ---
Operative Report
Operative Report
PROCEDURE DATE: 01/15/2024
Preoperative diagnosis: Chronic limb threatening ischemia left lower extremity.
Postoperative diagnosis: Same
Procedure:
1. Duplex assisted right common femoral artery cannulation.
2. Aortogram and pelvic angiogram.
3. Left lower extremity arteriogram with third order vessel catheterization of left anterior tibial artery via right common femoral artery puncture.
4. Balloon angioplasty of left anterior tibial artery with 2.5 mm and 3 mm angioplasty balloon.
5. Shockwave IVL (intravascular lithotripsy) angioplasty of left anterior tibial artery (limited due to inability to pass catheter) with 3 mm IVL balloon catheter.
6. Right femoral angiogram.
7. Supervision and interpretation.
Surgeon: Sunny
Food Counter Worker: None
Complications: None
Anesthesia: Local, sedation
Fluoroscopy:
19.2 min
51 mGy
11.88 Gy.cm2
Indications for procedure:
Tissue loss left heel, nonhealing. Evidence of arterial sufficiency. Risk/benefits/alternatives of angiography fully discussed. Patient understood and wished proceed.
Description of procedure:
Patient was identified, brought to the operating room. Placed on the table in the supine position. After the adequate administration of anesthesia, the patient was prepped and draped in the standard surgical fashion. A standard preoperative
timeout was undertaken and everybody was in agreement with the plan.
The right common femoral artery was accessed with a micropuncture kit under direct duplex ultrasound guidance. A 5 [place] sheath was then advanced over a 0.035 inch wire, and a marsh's hook catheter was advanced into the abdominal aorta.
Aortogram and pelvic angiogram was obtained. Findings as follows:
Infrarenal aorta: Distal infrarenal aorta that was visualized was patent without significant stenosis.
Right common iliac artery: Patent with no significant stenosis.
Right external iliac artery: Not well-visualized in this projection.
Left common iliac artery: Patent with no significant stenosis.
Left external iliac artery: Patent with no significant stenosis.
Using a floppy angled hydrophilic wire, the left common femoral artery was cannulated and the catheter was advanced. Left lower extremity arteriogram was obtained. Findings as follows:
Common femoral artery: Patent with no significant stenosis.
Profunda femoris artery: Patent with no significant stenosis.
Superficial femoral artery: Eccentric plaque but patent with no significant stenosis.
Popliteal artery: Eccentric plaque with some luminal irregularities in the behind knee and below knee segments, but no significant stenosis noted.
Anterior tibial artery: Patent proximally for approximately 8 cm and then occluded with reconstituted flow more distally. However the dorsalis pedis appeared to occlude on the proximal forefoot with collateral filling more distally on the foot.
Tibial peroneal trunk: Patent with no significant stenosis some luminal irregularities noted.
Peroneal artery: Patent proximally for about 3 to 4 cm and then became very diminutive and then appeared to occlude in the mid calf giving rise to a collateral.
Posterior tibial artery: Patent with mild mid stenosis. I visualize that stenosis in several obliquities and did not appear to be severely stenosis resulting and did not appear to be flow-limiting. However at the level of the ankle that platinum
posterior tibial artery occluded and gave rise to collaterals to fill the foot and heel area.
At this point I felt that it may be worthwhile to attempt to enhance inflow through the tibial vessels. I therefore then cannulated the left superficial femoral artery and then exchanged for a up and over 5 [place] 70 cm sheath over a Storq wire.
The patient was given 5000 units of intravenous heparin. I then advanced my wire to the below the knee popliteal artery and then advanced a CXI catheter. Then under roadmap assisted guidance using a flopping of hydrophilic wire and a CXI catheter
I was able to cannulate the anterior tibial artery. I then exchanged for a 0.014 inch steerable wire and was able to take cannulate to the mid anterior tibial but there is a severe stenosis or focal occlusion that I could not get past. The wire
did not have enough body and therefore used a heavier 0.014 inch wire and push through and I was able to get wire access down to the level of the ankle and the anterior tibial artery. I then passed a 2.5 mm x 150 mm angioplasty balloon and
performed overlapping inflations with prolonged inflations. I could not get the balloon to fully expanded profile in 2 or 3 segments of the mid anterior tibial artery. Completion angiogram demonstrated reasonable result but still residual stenoses
in the mid segment of the anterior tibial arteries and 2-3 different locations. Therefore, I felt that given the severe plaque and recalcitrant stenosis that plaque modification with intravascular lithotripsy angioplasty may be optimal. I
therefore then exchanged for a Shockwave IVL 3 mm balloon angioplasty catheter. However I could not push this through the mid segment of the anterior tibial artery the most severely stenotic area. I therefore then withdrew this off the wire and
performed balloon angioplasty with a 3 mm angioplasty balloon. I could still not get that balloon to profile. However after performed that angioplasty I then tried to advance the intravascular lithotripsy balloon catheter. I was able to not
really get it past that area but did perform lithotripsy angioplasty of the more proximal segment. This was done in the standard fashion at low atmosphere with activation of the lithotripsy followed by inflation to 6 shagufta and then repositioning of
the catheter several times. I tried multiple times but could not push through that severely stenotic or focally occluded area despite my wire having gone through it. At this point I felt no further endovascular intervention be rendered. I did
examine the posterior tibial artery again angiographically to see if that stenosis appeared flow-limiting and it did not. Therefore, at this point I withdrew my sheath to the right external iliac artery. Right femoral angiogram demonstrated good
puncture of the right common femoral artery. Therefore exchanged for a short 5 [place] sheath that was withdrawn in the recovery area. Manual pressure was applied to the puncture site (the patient had been given protamine to reverse the heparin).
Hemostasis was achieved. The patient tolerated procedure well.
[2024-01-15] MEDS: LIPITOR 40 MG PO (17:24)
[2024-01-15 21:45] LABS: Glucose - Point of Care 233 mg/dl (70-99)
[2024-01-15] MEDS: KEFLEX 1000 MG PO (22:01)
[2024-01-15] MEDS: LANTUS 0.1 UNITS SC (22:02)
[2024-01-16 03:24] VITALS: BP 117/54
[2024-01-16] MEDS: KEFLEX 1000 MG PO ×3 (05:34→21:46)
[2024-01-16 06:00] VITALS: BMI 24.7
[2024-01-16 07:27] LABS: % Basophils 0.4 % (0-2); % Eosinophils 6.5 % (0-6); % Immature Granulocytes 0.4 % (0-0.5); % Lymphocytes 14.4 % (20.5-51.1); % Monocytes 9.5 % (1.7-9.3); % Neutrophils 68.8 % (42.2-75.2); Absolute Eosinophils 0.4 10^3/uL (0-0.7); Absolute Monocytes 0.6 10^3/uL (0.1-0.6); Absolute Neutrophils 4.6 10^3/uL (1.4-6.5); Hematocrit 30.8 % (39.0-52.0); Hemoglobin 10.4 g/dL (13.0-18.0); Mean Corp Hgb Conc. 33.8 g/dL (33.0-37.0); Mean Corpuscular Hgb 30.2 pg (27.0-31.0); Mean Corpuscular Volume 89.5 fL (80.0-94.0); Mean Platelet Volume 9.9 fL (7.4-10.4); Nucleated Red Blood Cells % 0 % (-); Platelet Count 239 10^3/uL (130-400); Red Blood Cell Count 3.44 10^6/uL (4.70-6.10); Red Cell Dist. Width 14.4 % (11.5-14.5); White Blood Cell Count 6.7 10^3/uL (4.8-10.8)
[2024-01-16 07:45] VITALS: BP 105/64
[2024-01-16 07:48] LABS: Blood Urea Nitrogen 23 mg/dl (9-20); Calcium 8.3 mg/dl (8.4-10.2); Carbon Dioxide 33 mmol/L (22-30); Chloride 97 mmol/L (98-107); Estimated Creatinine Clearance 59 ml/min; Glucose 178 mg/dl (70-99); Potassium 4.2 mmol/L (3.5-5.1); Sodium 135 mmol/L (135-145); eGFR > 60.00
[2024-01-16] MEDS: HEPARIN 5000 UNITS SC ×2 (08:00→20:13)
[2024-01-16] MEDS: PROTONIX 20 MG PO (08:00)
[2024-01-16] MEDS: TOPROL XL 12.5 MG PO ×2 (08:00→20:13)
[2024-01-16] MEDS: PLAVIX 75 MG PO (08:00)
[2024-01-16] MEDS: NOVOLOG FLEXPEN-LOW RESISTANCE 2 UNITS SC ×2 (08:00→17:11)
[2024-01-16] MEDS: LOW STRENGTH ASPIRIN 81 MG PO (08:00)
[2024-01-16] MEDS: MAGNESIUM OXIDE 500 MG PO ×2 (08:00→20:13)
[2024-01-16] MEDS: HYDROPHOR 1 APPLIC TOPICAL (08:00)
[2024-01-16] MEDS: ProAmatine 2.5 MG PO ×3 (08:00→17:10)
[2024-01-16 08:05] LABS: Glucose - Point of Care 204 mg/dl (70-99)
--- NOTE | 2024-01-16 08:48 | W.PN.CD ---
Today's Communication / Plan
-
Most recent echo report with EF 40-45% and moderate
resp status stable. Appears euvolemic
- Continue to monitor volume status/ resp status
- CAD astable without angina . Continue current therapy
call if additional assistance required
Impression / Plan
-
BACKGROUND: 88M with ICM, HFrEF, CAD, NSTEMI (10/2023) Type II DM ,CKD, and left eye blindness presented with worsening redness to heel wound
Decorating Equipment Setter: Formerly Dr. Gu, now Dr. Thomas
Ischemic cardiomyopathy
HFrEF (LVEF % by history and most recetn EF 40-45%),
Echo this admit LVEF is approximately 40-45%
No obvious wall motion abnormalities.
Normal right ventricular size and function.
Moderate aortic stenosis. mean gradient 32mmHg
Estimated pulmonary artery pressure of 32 mmHg
-euvomeic. and resp status stable
-GDMT as tolerated (limited by CKD and blood pressure)
-Beta-juan pablo: Metoprolol succinate
-SGLT2i: Would not initiate without nephrology recommendation (underlying CKD)
-ACEi/ARB: This was deferred during prior hospitalization due to LACEY
-MRA: None due to CKD
-Diuretic: Requires furosemide 60 to maintain euvolemia
- Continue to monitor volume status/ resp status
Coronary artery disease
NSTEMI
-PCI to RUBI�LAD 11/25/2023
-The plan is for uninterrupted DAPT for 1 year from PCI (his primary quality audit representative would prefer lifelong)
-CABG [address] Andre Arnold ([facility])
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
-Vascular surgery following. S/P anterior tibial angioplasty 01/14/24
Preop risk assessment already performed. Increased risk due to history as noted above. CAD, CM and moderate
- continue current medical therapy
Aortic stenosis, mild, updating echocardiogram
CKD 3, nephrology following
NSVT, noted prior to revascularization, continue metoprolol succinate
Type 2 diabetes, HgbA1c 6.9%, per primary service
Prostate cancer
Left eye blindness
Dyslipidemia, LDL at goal on atorvastatin 40 mg
Physical Exam
Vital Signs/Labs
Vital Signs
Temp Pulse Resp BP Pulse Ox
97.7 F 93 16 105/64 95
01/16/24 07:45 01/16/24 07:45 01/16/24 07:45 01/16/24 07:45 01/16/24 07:45
01/15/24 01/16/24 01/17/24
06:59 06:59 06:59
Actual Weight 75.4 kg 75.92 kg
01/16/24 06:35
01/16/24 06:35
Physical Exam
Constitutional: No acute distress
Cardiovascular: Rhythm & rate is regular and Systolic murmur present
GI: Soft and Non tender
Neuro/Psych: Alert and Oriented
Other: Other (no edema)
Data Reviewed
-
Date of Service: January 16, 2024
Medical Decision Making: Reviewed Test Results
Echo: Report Reviewed by me
Medical Tests (PFT, Pathology etc): Report Reviewed by me
Labs: Labs Reviewed by me
--- NOTE | 2024-01-16 11:20 | W.PN.NEPH.PH ---
Today's Communication / Plan
-
follow BMP
Assessment/Plan
-
Impression:
CKD stage IIIa (1-1.2)
Left lower extremity heel cellulitis/wound
Ischemic cardiomyopathy with EF of 20 to 25%
Diabetes II
Peripheral vascular disease
Coronary artery disease with history of CABG and multiple PCI
Suspected idiopathic pulmonary fibrosis
History of recent non-ST elevation [place] in October 2023
History of atrial fibrillation
Chronic hypotension maintained on midodrine
Plan:
follow BMP
can restart lasix
-
-
Date of Service: January 16, 2024
CC / HPI / ROS
-
Chief Complaint:
CKD
History of Present Illness:
Cr stable at 0.9
BP stable
s/p LLE Agram/angioplasty 01/14
mild alkalosis from IVF
Review of Systems:
no CP/SOB
Labs
-
Labs:
WBC 6.7 10^3/uL (4.8-10.8) 01/16/24 06:35
RBC 3.44 10^6/uL (4.70-6.10) L 01/16/24 06:35
Hgb 10.4 g/dL (13.0-18.0) L 01/16/24 06:35
Hct 30.8 % (39.0-52.0) L 01/16/24 06:35
Plt Count 239 10^3/uL (130-400) 01/16/24 06:35
Sodium 135 mmol/L (135-145) 01/16/24 06:35
Potassium 4.2 mmol/L (3.5-5.1) 01/16/24 06:35
Chloride 97 mmol/L (98-107) L 01/16/24 06:35
Carbon Dioxide 33 mmol/L (22-30) H 01/16/24 06:35
BUN 23 mg/dl (9-20) H 01/16/24 06:35
Creatinine 0.9 mg/dL (0.7-1.3) 01/16/24 06:35
eGFR > 60.00 01/16/24 06:35
Glucose 178 mg/dl (70-99) H 01/16/24 06:35
Calcium 8.3 mg/dl (8.4-10.2) L 01/16/24 06:35
Albumin 3.3 g/dl (3.5-5.0) L 01/11/24 15:51
Physical Exam
-
Vital Signs:
Vital Signs
Temp Pulse Resp BP Pulse Ox
97.7 F 93 16 105/64 95
01/16/24 07:45 01/16/24 07:45 01/16/24 07:45 01/16/24 07:45 01/16/24 07:45
Cardiovascular:: Regular rate and rhythm
Respiratory:: Bilateral: CTA
Lung Excursion:: Normal
Abdomen:: Nontender and Soft
Bowel Sounds:: Normal
Extremity Edema:: +1: Bilateral:
[2024-01-16 12:40] LABS: Glucose - Point of Care 291 mg/dl (70-99)
[2024-01-16 12:49] VITALS: BP 112/60
[2024-01-16] MEDS: NOVOLOG FLEXPEN-LOW RESISTANCE 3 UNITS SC (12:59)
[2024-01-16] MEDS: LASIX 60 MG PO (13:00)
--- NOTE | 2024-01-16 13:17 | W.PN.VS ---
Today's Communication / Plan
-
Patient seen and examined at bedside with Dr. Nolberto Correa, below plan reviewed with attending.
Assessment/Plan
-
Assessment: 88 year old male POD#1 Left lower extremity arteriogram with third order vessel catheterization of left anterior tibial artery via right common femoral artery puncture, Balloon angioplasty of left anterior tibial artery with 2.5 mm and 3
mm angioplasty balloon, Shockwave IVL (intravascular lithotripsy) angioplasty of left anterior tibial artery (limited due to inability to pass catheter) with 3 mm IVL balloon catheter
Plan:
Can remove right groin tegaderm dressing this evening
Obtained US to evaluate for limflow procedure candidacy
Follow up placed in discharge institutions, will review next steps/possibility of further surgical interventions with patient in outpatient setting.
Subjective Data
-
Date of Service: January 16, 2024
Patient seen and examined at bedside, offers no complaints. Denies right groin pain.
Objective Data
-
Vital Signs
Temp Pulse Resp BP Pulse Ox
97.9 F 98 18 112/60 98
01/16/24 12:49 01/16/24 12:49 01/16/24 12:49 01/16/24 12:49 01/16/24 12:49
Intake and Output
01/15/24 01/16/24 01/17/24
06:59 06:59 06:59
Intake Total 840 / 840 840 / 840
Balance 840 / 840 840 / 840
Intake:
Oral fluids 840 / 840 840 / 840
Other:
How many times incontinent 3
MODERATE amount urine
How many times incontinent 3 2
SATURATED amount urine
Lab Results
01/16/24 06:35
01/16/24 06:35
Calcium 8.3 mg/dl (8.4-10.2) L 01/16/24 06:35
Total Bilirubin 0.6 mg/dl (0.2-1.3) 01/11/24 15:51
AST 50 U/L (17-59) 01/11/24 15:51
ALT 27 U/L (0-50) 01/11/24 15:51
Alkaline Phosphatase 143 U/L (38-126) H 01/11/24 15:51
Total Protein 6.7 g/dl (6.3-8.2) 01/11/24 15:51
Albumin 3.3 g/dl (3.5-5.0) L 01/11/24 15:51
Physical Exam
-
AAOx3, NAD
No tachycardia
No dyspnea
ABD non-tender, non-distended
Right groin site CDI, no evidence of hematoma
--- NOTE | 2024-01-16 15:21 | CM ---
CM reviewed chart, discussed with Hospitalist. Patient LTC resident at [facility], will need insurance auth for SNF return when stable. CM will continue to follow for all discharge planning needs.
Plan; [facility], will need auth for SNF when stable.
[2024-01-16 15:46] VITALS: BP 101/77
--- NOTE | 2024-01-16 15:50 | W.PN.HOSP.TC ---
Today's Communication/Plan
-
continue oral Keflex
Assessment / Plan
Assessment / Plan
Assessment/Plan
88-year-old male with diabetes mellitus type 2 pulmonary fibrosis, CAD status post PCI x 4 last being October 2023, heart failure, history of ambulatory dysfunction due to arthritis of right knee presented on January 11, 2024 from [facility] due to
left heel wound. Patient reports he developed the bilateral heel pressure wounds (left worse than the right) from being in and out of hospitals and nursing homes. He recently had fever and chills at [facility] and received intravenous antibiotics at
[facility]. Wound nurse recently noted LLE edema and erythema and sent him to the ER. X-RAY showed no osteomyelitis.
#LLE Cellulitis
#Left calcaneus decubitus wound with eschar - not infected
MRI: 1. No MRI evidence for acute osteomyelitis or abscess in the left hindfoot.
2. Large region of nonenhancing devitalized subcutaneous fat posterior to the calcaneus deep to a chronic posterior heel wound. Moderate cellulitis in the distal left lower leg, ankle, and foot.
3. Large plantar calcaneal enthesophyte and chronic plantar fasciitis.
4. Mild tendinosis of the distal Achilles tendon.
5. 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
6. Severe acute on chronic muscle denervation.
-Initially Vancomycin was given, then transitioned to Cefazolin, now on Keflex 1000 mg q8h through 01/20
-Appreciated ID
-Elevation of LLE, compression of LLE during the day
-Wound Care consult
ASPVD:
consult Vasc Surgery
Dr Correa requested Nephro and Cardio eval preoperatively, orders placed and input appreciated
underwent angioplasty 01/14
RIGHT LOWER EXTREMITY: ANNE MARIE unmeasurable due to noncompressible arteries. TBI minimally reduced at 0.67. Arterial duplex examination reveals multiphasic waveforms from the common femoral artery through the popliteal artery with no focal
velocity elevations to suggest significant stenosis. Multiphasic continuous Doppler waveforms are demonstrated in the posterior tibial artery and dorsalis pedis artery.
LEFT LOWER EXTREMITY: ANNE MARIE unmeasurable due to noncompressible arteries. TBI severely reduced at 0.36. Arterial duplex examination reveals multiphasic waveforms from the common femoral artery through the distal superficial femoral artery. There is
a focal velocity elevation in the popliteal artery along with a transition to monophasic waveforms (169 cm/s; ratio 2.9) suggesting a greater than 50% stenosis at this location. Plaque is identified in the popliteal artery. Monophasic continuous
Doppler waveforms are demonstrated in the posterior tibial artery and dorsalis pedis artery. 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
#History of Respiratory distress
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
-should have PFTs and further work up done outpatient
-f/u pulm outpatient
#Ischemic cardiomyopathy, acute on chronic HFrEF
�Continue home GDMT as tolerated
-ARB not listed on home medications, although patient was discharged on ARB in October 2023
#History of Transaminitis
#DM II
Yes, LLE cellulitis is related to/associated with Diabetes along with his ASPVD
-Sliding scale insulin
-Depending on trends, add on home long-acting and short-acting Insulin
#Recent NSTEMI
#CAD
- recent angioplasty and partially successful treatment with shockwave IVL reducing distal left main/ostial circumflex stenosis from 95% to 30-40% severity 11/22/23
- Successful PCI with JUAN RAMON to the RUBI-LAD touchdown 11/25/23
- DAPT ASA/Plavix continued, continue BB, ARB
- Cardiac rehab as outpatient
a1c 6.9%
#Tachyarrhythmia due to new onset atrial fibrillation with RVR - now rate controlled, currently in NSR
#MV-CAD s/p CABG with Hx of PCI x3
#GERD
#DM type II
#Hypertension
#Hyperlipidemia
#Mild aortic stenosis
#CKD
#History of ambulatory dysfunction due to arthritis of right knee
Call placed to Dr. Bailey to discuss her plans. Updated JEF Carrera. Timing of dc pending Dr. Bailey input
Input from Dr. Correa appreciated: 88 year old male POD#1 Left lower extremity arteriogram with third order vessel catheterization of left anterior tibial artery via right common femoral artery puncture, Balloon angioplasty of left anterior tibial
artery with 2.5 mm and 3 mm angioplasty balloon, Shockwave IVL (intravascular lithotripsy) angioplasty of left anterior tibial artery (limited due to inability to pass catheter) with 3 mm IVL balloon catheter
DVT Prophylaxis: Heparin
Code Status: Full Code
Anticipated Discharge: 24 - 48 hours
Subjective/Interval History
-
Date of Service: January 16, 2024
Awake, alert
Objective Data
-
Labs:
Laboratory Results
01/16/24
06:35
WBC 6.7
Hgb 10.4 L
Hct 30.8 L
Plt Count 239
Sodium 135
Potassium 4.2
Chloride 97 L
Carbon Dioxide 33 H
BUN 23 H
Creatinine 0.9
Glucose 178 H
Calcium 8.3 L
Vital Signs:
Vital Signs
Temp Pulse Resp BP Pulse Ox
98.0 F 90 20 101/77 95
01/16/24 15:46 01/16/24 15:46 01/16/24 15:46 01/16/24 15:46 01/16/24 15:46
I&O
01/15/24 01/16/24 01/17/24
06:59 06:59 06:59
Intake Total 840 / 840 840 / 840
Balance 840 / 840 840 / 840
Review of Systems
-
History Source: Patient, Physician (reviewed with Dr. Correa) and Coordinated Provider
Constitutional: Denies Fever
EENT: Reports No Symptoms Reported
Respiratory: Reports No Symptoms
Cardiac: Reports No Symptoms
Abdomen/GI: Reports No Symptoms
Genitourinary: Reports No Symptoms
Physical Exam
-
General: Well Developed, Well Nourished and No Apparent Distress
HEENT: Normocephalic, Atraumatic, Moist Mucous Membranes and Hearing Impaired
Respiratory: Clear to Auscultation; Negative Wheezes, Rales or Rhonchi
Cardiac: Regular Rhythm and S1/S2
GI: Soft, Nontender and Nondistended
Musculoskeletal: No Clubbing, No Cyanosis, No Edema and Other (significant muscle wasting of bilateral LE)
Skin: Warm, Dry and Rash (left lower extremity cellulitis)
Neuro: Awake and Alert
[2024-01-16 16:29] LABS: Glucose - Point of Care 213 mg/dl (70-99)
--- NOTE | 2024-01-16 16:33 | W.PN.ID1 ---
Date of Service
Date of Service: January 16, 2024
Today's Communication
- Continue cephalexin 1000mg po q8h through 01/21/24.
-ID will sign off.
Assessment / Plan
# LLE cellulitis, improving
# Left calcaneus large wound with eschar
# LLE PAD - ANNE MARIE 0.36
- s/p balloon angioplasty intervention 01/14
- wound swab E. coli, S. aureus
- MRI left foot without osteo
- s/p cefazolin (d4)
- Continue cephalexin 1000mg po q8h through 01/21/24.
-Continue wound care
ID will sign off.
# Conditions [employer]
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
CAD s/p CABG with Hx of PCI x4
HFrEF
Hypertension
Hyperlipidemia
DM type II
CKD3
Mild aortic stenosis
GERD
Nonmelanoma skin cancer (SCC of right gnosticist)
Chief Complaint
-: Cellulitis
Subjective / Review of Systems
No acute issues.
Vital Signs / Physical Exam
Vital Signs
Vital Signs
Temp Pulse Resp BP Pulse Ox
98.0 F 90 20 101/77 95
01/16/24 15:46 01/16/24 15:46 01/16/24 15:46 01/16/24 15:46 01/16/24 15:46
Physical Exam
Constitutional: No Acute Distress and Comfortable
Gastrointestinal: Soft, Non Tender and Non Distended
Extremities: Edema (LLE resolving) and Erythema (LLE decreased)
Objective Data
Lab Data
Lab Results
01/16/24 06:35
01/16/24 06:35
Estimated Creat Clear 59 ml/min 01/16/24 06:35
Total Bilirubin 0.6 mg/dl (0.2-1.3) 01/11/24 15:51
AST 50 U/L (17-59) 01/11/24 15:51
ALT 27 U/L (0-50) 01/11/24 15:51
Alkaline Phosphatase 143 U/L (38-126) H 01/11/24 15:51
Most recent labs reviewed.
Micro Results:
01/11/24 16:34 Wound Culture - Final
Foot - Left Escherichia coli
S aureus-Methicillin Sensitive
Gram Stain - Final
01/12/24 02:14 MRSA Screen - Final
Nose No Methicillin Resistant Staphylococcus aureus isolated.
01/11/24 Left foot XRAY: No acute abnormalities
01/11/24 Left periph vasc US: No DVT
01/13/24 MRI left foot wo and w: No MRI evidence for acute osteomyelitis or abscess in the left hindfoot. Large region of nonenhancing devitalized subcutaneous fat posterior to the calcaneus deep to a chronic posterior heel wound. Moderate
cellulitis in the distal left lower leg, ankle, and foot.
--- NOTE | 2024-01-16 17:05 | PTCARENOTE ---
patient's bilateral lower extremities treatments were performed. patient did not have any behavioral/verbal indicators of discomfort or pain. patient's right groin pressure dressing removed with no active bleeding or drainage present
[2024-01-16] MEDS: LIPITOR 40 MG PO (17:10)
[2024-01-16 19:20] VITALS: BP 109/56
[2024-01-16 21:22] LABS: Glucose - Point of Care 272 mg/dl (70-99)
[2024-01-16] MEDS: LANTUS 0.1 UNITS SC (21:46)
[2024-01-16 23:05] VITALS: BP 134/62
[2024-01-17] VITALS (11 sets, daily range): BP systolic 92–132; BP diastolic 49–70; PULSE 80; O2SAT 97; BMI 24.4
[2024-01-17] MEDS: KEFLEX 1000 MG PO ×3 (05:50→22:08)
[2024-01-17 08:28] LABS: Glucose - Point of Care 206 mg/dl (70-99)
[2024-01-17] MEDS: TYLENOL 650 MG PO (08:53)
[2024-01-17] MEDS: PROTONIX 20 MG PO (08:54)
[2024-01-17] MEDS: PLAVIX 75 MG PO (08:54)
[2024-01-17] MEDS: TOPROL XL 12.5 MG PO ×2 (08:54→22:08)
[2024-01-17] MEDS: ProAmatine 2.5 MG PO ×3 (08:54→18:17)
[2024-01-17] MEDS: LASIX 60 MG PO (08:54)
[2024-01-17] MEDS: MAGNESIUM OXIDE 500 MG PO ×2 (08:54→20:31)
[2024-01-17] MEDS: LOW STRENGTH ASPIRIN 81 MG PO (08:54)
[2024-01-17] MEDS: NOVOLOG FLEXPEN-LOW RESISTANCE 2 UNITS SC (08:58)
[2024-01-17] MEDS: HEPARIN 5000 UNITS SC ×2 (08:58→20:31)
[2024-01-17 09:49] LABS: Blood Urea Nitrogen 24 mg/dl (9-20); Calcium 8.5 mg/dl (8.4-10.2); Carbon Dioxide 31 mmol/L (22-30); Chloride 97 mmol/L (98-107); Estimated Creatinine Clearance 48 ml/min; Glucose 178 mg/dl (70-99); Potassium 3.9 mmol/L (3.5-5.1); Sodium 136 mmol/L (135-145); eGFR > 60.00
[2024-01-17 12:08] LABS: Glucose - Point of Care 399 mg/dl (70-99)
[2024-01-17] MEDS: HYDROPHOR 1 APPLIC TOPICAL (14:00)
--- NOTE | 2024-01-17 14:08 | W.PN.NEPH.PH ---
Today's Communication / Plan
-
Sign off
Assessment/Plan
-
Impression:
CKD stage IIIa (1-1.2)
Left lower extremity heel cellulitis/wound
Ischemic cardiomyopathy with EF of 20 to 25%
Diabetes II
Peripheral vascular disease
Coronary artery disease with history of CABG and multiple PCI
Suspected idiopathic pulmonary fibrosis
History of recent non-ST elevation NV in October 2023
History of atrial fibrillation
Chronic hypotension maintained on midodrine
Plan:
Creatinine at 1.1 baseline
can restart lasix
We will sign off
-
-
Date of Service: January 17, 2024
CC / HPI / ROS
-
Chief Complaint:
CKD
History of Present Illness:
Cr stable at 1.1
BP stable
s/p LLE Agram/angioplasty 01/14
mild alkalosis from IVF
Review of Systems:
no CP/SOB
Labs
-
Labs:
WBC 6.7 10^3/uL (4.8-10.8) 01/16/24 06:35
RBC 3.44 10^6/uL (4.70-6.10) L 01/16/24 06:35
Hgb 10.4 g/dL (13.0-18.0) L 01/16/24 06:35
Hct 30.8 % (39.0-52.0) L 01/16/24 06:35
Plt Count 239 10^3/uL (130-400) 01/16/24 06:35
Sodium 136 mmol/L (135-145) 01/17/24 08:47
Potassium 3.9 mmol/L (3.5-5.1) 01/17/24 08:47
Chloride 97 mmol/L (98-107) L 01/17/24 08:47
Carbon Dioxide 31 mmol/L (22-30) H 01/17/24 08:47
BUN 24 mg/dl (9-20) H 01/17/24 08:47
Creatinine 1.1 mg/dL (0.7-1.3) 01/17/24 08:47
eGFR > 60.00 01/17/24 08:47
Glucose 178 mg/dl (70-99) H 01/17/24 08:47
Calcium 8.5 mg/dl (8.4-10.2) 01/17/24 08:47
Albumin 3.3 g/dl (3.5-5.0) L 01/11/24 15:51
Physical Exam
-
Vital Signs:
Vital Signs
Temp Pulse Resp BP Pulse Ox
98.2 F 81 22 121/64 96
01/17/24 11:53 01/17/24 11:53 01/17/24 11:53 01/17/24 11:53 01/17/24 11:53
Cardiovascular:: Regular rate and rhythm
Respiratory:: Bilateral: CTA
Lung Excursion:: Normal
Abdomen:: Nontender and Soft
Bowel Sounds:: Normal
Extremity Edema:: +1: Bilateral:
[2024-01-17] MEDS: NOVOLOG FLEXPEN-LOW RESISTANCE 5 UNITS SC (15:09)
--- NOTE | 2024-01-17 15:43 | CM ---
Addendum entered by Debi Valencia 01/17/24 16:02:
Transport forms on chart. Please call front end assistant and ask for Nursing Registry Rn day of discharge [phone]
[place]
Report: [phone]

Original Note:
Per [employer]ity, auth approved for [facility] 01/17-01/23, auth# [id number]. Update sent to [facility] in Admissions. Patient will require ambulance transport.
Plan; [facility] tomorrow, patient is LTC resident, auth approved for short term rehab.
--- NOTE | 2024-01-17 16:07 | WOUNDNOTE ---
WO RN NOTE: This RN was alerted by nursing staff that sacral/buttock DTI is evolving and now open. Visited and assessed patient with assistance from Dara STANLEY. The buttock wound is now open and evolving. The wound was provided local wound care
and orders were updated. SPD called for bariatric air cushion to help provide additional off-loading. Patient remains on air mattress and fiber filled boots were intact at time of assessment. RN Albertina and Dr. Womack given updated. Care plan and
orders updated. This data analyst report writer called patients daughterOvidio and gave update on evolving wound. Ovidio stated understanding and said she was told about the wound at [facility]. Plan is for patient to return to SNF. Patient has several comorbidities
including PVD, diabetes, and poor mobility. Per daughter, appetite has declined over the past few weeks to months. Wounds may worsen and new wounds may develop even with optimal care.
--- NOTE | 2024-01-17 16:12 | W.PN.HOSP.TC ---
Today's Communication/Plan
-
To go to SNF tomorrow
Assessment / Plan
Assessment / Plan
Assessment/Plan
88-year-old male with diabetes mellitus type 2 pulmonary fibrosis, CAD status post PCI x 4 last being October 2023, heart failure, history of ambulatory dysfunction due to arthritis of right knee presented on January 11, 2024 from [facility] due to
left heel wound. Patient reports he developed the bilateral heel pressure wounds (left worse than the right) from being in and out of hospitals and nursing homes. He recently had fever and chills at [facility] and received intravenous antibiotics at
[facility]. Wound nurse recently noted LLE edema and erythema and sent him to the ER. X-RAY showed no osteomyelitis.
#LLE Cellulitis
#Left calcaneus decubitus wound with eschar - not infected
MRI: 1. No MRI evidence for acute osteomyelitis or abscess in the left hindfoot.
2. Large region of nonenhancing devitalized subcutaneous fat posterior to the calcaneus deep to a chronic posterior heel wound. Moderate cellulitis in the distal left lower leg, ankle, and foot.
3. Large plantar calcaneal enthesophyte and chronic plantar fasciitis.
4. Mild tendinosis of the distal Achilles tendon.
5. 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
6. Severe acute on chronic muscle denervation.
-Initially Vancomycin was given, then transitioned to Cefazolin, now on Keflex 1000 mg q8h through 01/20
-Appreciated ID
-Elevation of LLE, compression of LLE during the day
-Wound Care consult
ASPVD:
consulted Vasc Surgery
Dr Correa requested Nephro and Cardio eval preoperatively, orders placed and input appreciated
underwent angioplasty 01/14
RIGHT LOWER EXTREMITY: ANNE MARIE unmeasurable due to noncompressible arteries. TBI minimally reduced at 0.67. Arterial duplex examination reveals multiphasic waveforms from the common femoral artery through the popliteal artery with no focal
velocity elevations to suggest significant stenosis. Multiphasic continuous Doppler waveforms are demonstrated in the posterior tibial artery and dorsalis pedis artery.
LEFT LOWER EXTREMITY: ANNE MARIE unmeasurable due to noncompressible arteries. TBI severely reduced at 0.36. Arterial duplex examination reveals multiphasic waveforms from the common femoral artery through the distal superficial femoral artery. There is
a focal velocity elevation in the popliteal artery along with a transition to monophasic waveforms (169 cm/s; ratio 2.9) suggesting a greater than 50% stenosis at this location. Plaque is identified in the popliteal artery. Monophasic continuous
Doppler waveforms are demonstrated in the posterior tibial artery and dorsalis pedis artery. 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
#History of Respiratory distress
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
-should have PFTs and further work up done outpatient
-f/u pulm outpatient
#Ischemic cardiomyopathy, chronic HFrEF
�Continue home GDMT as tolerated
-ARB not listed on home medications, although patient was discharged on ARB in October 2023
#History of Transaminitis
#DM II
Yes, LLE cellulitis is related to/associated with Diabetes along with his ASPVD
-Sliding scale insulin
-Depending on trends, add on home long-acting and short-acting Insulin
#Recent NSTEMI
#CAD
- recent angioplasty and partially successful treatment with shockwave IVL reducing distal left main/ostial circumflex stenosis from 95% to 30-40% severity 11/22/23
- Successful PCI with JUAN RAMON to the RUBI-LAD touchdown 11/25/23
- DAPT ASA/Plavix continued, continue BB, ARB
- Cardiac rehab as outpatient
a1c 6.9%
#Tachyarrhythmia due to new onset atrial fibrillation with RVR - now rate controlled, currently in NSR
#MV-CAD s/p CABG with Hx of PCI x3
#GERD
#DM type II
#Hypertension
#Hyperlipidemia
#Mild aortic stenosis
#CKD
#History of ambulatory dysfunction due to arthritis of right knee
Discussed with Dr. Bailey, should follow up with Podiatry at [facility]
Reviewed with janett Orellana, plan to dc to [facility] once prior auth received.
Input from Dr. Correa appreciated: 88 year old male POD#1 Left lower extremity arteriogram with third order vessel catheterization of left anterior tibial artery via right common femoral artery puncture, Balloon angioplasty of left anterior tibial
artery with 2.5 mm and 3 mm angioplasty balloon, Shockwave IVL (intravascular lithotripsy) angioplasty of left anterior tibial artery (limited due to inability to pass catheter) with 3 mm IVL balloon catheter
DVT Prophylaxis: Heparin
Code Status: Full Code
Anticipated Discharge: Within 24 hours
Subjective/Interval History
-
Date of Service: January 17, 2024
Awake, alert
Objective Data
-
Labs:
Laboratory Results
01/17/24
08:47
Sodium 136
Potassium 3.9
Chloride 97 L
Carbon Dioxide 31 H
BUN 24 H
Creatinine 1.1
Glucose 178 H
Calcium 8.5
Vital Signs:
Vital Signs
Temp Pulse Resp BP Pulse Ox
98.2 F 81 22 121/64 96
01/17/24 11:53 01/17/24 11:53 01/17/24 11:53 01/17/24 11:53 01/17/24 11:53
I&O
01/16/24 01/17/24 01/18/24
06:59 06:59 06:59
Intake Total 1080 / 1080 840 / 840
Balance 1080 / 1080 840 / 840
Review of Systems
-
History Source: Patient, Physician (reviewed with Dr. Correa) and Coordinated Provider
Constitutional: Denies Fever
EENT: Reports No Symptoms Reported
Respiratory: Reports No Symptoms
Cardiac: Reports No Symptoms
Abdomen/GI: Reports No Symptoms
Genitourinary: Reports No Symptoms
Physical Exam
-
General: Well Developed, Well Nourished and No Apparent Distress
HEENT: Normocephalic, Atraumatic, Moist Mucous Membranes and Hearing Impaired
Respiratory: Clear to Auscultation; Negative Wheezes, Rales or Rhonchi
Cardiac: Regular Rhythm and S1/S2
GI: Soft, Nontender and Nondistended
Musculoskeletal: No Clubbing, No Cyanosis, No Edema and Other (significant muscle wasting of bilateral LE)
Skin: Warm, Dry and Rash (left lower extremity cellulitis)
Neuro: Awake and Alert
[2024-01-17 17:01] LABS: Glucose - Point of Care 310 mg/dl (70-99)
[2024-01-17] MEDS: NOVOLOG FLEXPEN-LOW RESISTANCE 4 UNITS SC (18:17)
[2024-01-17] MEDS: LIPITOR 40 MG PO (18:17)
[2024-01-17 21:43] LABS: Glucose - Point of Care 286 mg/dl (70-99)
[2024-01-17] MEDS: LANTUS 0.1 UNITS SC (22:08)
--- NOTE | 2024-01-17 23:22 | PTCARENOTE ---
~ 2029: Pt's automatic BP in his left upper arm lying was 95/53, HR 86. BP checked manually in left upper arm was 92/58, pt asymptomatic. Rodrick Downing notified, will recheck in an hour.
~ 2129: BP rechecked manually in left upper arm is now 98/60, pt is still asymptomatic. Rodrick Downing notified of BP increase. Evening dose of Toprol XL provided to pt.
[2024-01-18] MEDS: KEFLEX 1000 MG PO ×2 (05:52→12:59)
[2024-01-18 07:30] VITALS: BP 112/62
[2024-01-18 08:04] LABS: Glucose - Point of Care 218 mg/dl (70-99)
[2024-01-18] MEDS: HEPARIN 5000 UNITS SC (08:32)
[2024-01-18] MEDS: NOVOLOG FLEXPEN-LOW RESISTANCE 2 UNITS SC (08:32)
[2024-01-18] MEDS: PROTONIX 20 MG PO (08:33)
[2024-01-18] MEDS: MAGNESIUM OXIDE 500 MG PO (08:33)
[2024-01-18] MEDS: LOW STRENGTH ASPIRIN 81 MG PO (08:33)
[2024-01-18] MEDS: LASIX 60 MG PO (08:33)
[2024-01-18] MEDS: PLAVIX 75 MG PO (08:33)
[2024-01-18] MEDS: ProAmatine 2.5 MG PO ×3 (08:33→17:50)
[2024-01-18] MEDS: TOPROL XL 12.5 MG PO (08:33)
[2024-01-18] MEDS: HYDROPHOR 1 APPLIC TOPICAL (08:34)
[2024-01-18 11:28] LABS: Glucose - Point of Care 336 mg/dl (70-99)
[2024-01-18] MEDS: NOVOLOG FLEXPEN-LOW RESISTANCE 4 UNITS SC (12:55)
--- NOTE | 2024-01-18 15:11 | W.PN.HOSP.TC ---
Today's Communication/Plan
-
dc to [facility]
Assessment / Plan
Assessment / Plan
Assessment/Plan
88-year-old male with diabetes mellitus type 2 pulmonary fibrosis, CAD status post PCI x 4 last being October 2023, heart failure, history of ambulatory dysfunction due to arthritis of right knee presented on January 11, 2024 from [facility] due to
left heel wound. Patient reports he developed the bilateral heel pressure wounds (left worse than the right) from being in and out of hospitals and nursing homes. He recently had fever and chills at [facility] and received intravenous antibiotics at
[facility]. Wound nurse recently noted LLE edema and erythema and sent him to the ER. X-RAY showed no osteomyelitis.
#LLE Cellulitis
#Left calcaneus decubitus wound with eschar - not infected
MRI: 1. No MRI evidence for acute osteomyelitis or abscess in the left hindfoot.
2. Large region of nonenhancing devitalized subcutaneous fat posterior to the calcaneus deep to a chronic posterior heel wound. Moderate cellulitis in the distal left lower leg, ankle, and foot.
3. Large plantar calcaneal enthesophyte and chronic plantar fasciitis.
4. Mild tendinosis of the distal Achilles tendon.
5. 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
6. Severe acute on chronic muscle denervation.
-Initially Vancomycin was given, then transitioned to Cefazolin, now on Keflex 1000 mg q8h through 01/20
-Appreciated ID
-Elevation of LLE, compression of LLE during the day
-Wound Care consult
ASPVD:
consulted Vasc Surgery
Dr Correa requested Nephro and Cardio eval preoperatively, orders placed and input appreciated
underwent angioplasty 01/14
RIGHT LOWER EXTREMITY: ANNE MARIE unmeasurable due to noncompressible arteries. TBI minimally reduced at 0.67. Arterial duplex examination reveals multiphasic waveforms from the common femoral artery through the popliteal artery with no focal
velocity elevations to suggest significant stenosis. Multiphasic continuous Doppler waveforms are demonstrated in the posterior tibial artery and dorsalis pedis artery.
LEFT LOWER EXTREMITY: ANNE MARIE unmeasurable due to noncompressible arteries. TBI severely reduced at 0.36. Arterial duplex examination reveals multiphasic waveforms from the common femoral artery through the distal superficial femoral artery. There is
a focal velocity elevation in the popliteal artery along with a transition to monophasic waveforms (169 cm/s; ratio 2.9) suggesting a greater than 50% stenosis at this location. Plaque is identified in the popliteal artery. Monophasic continuous
Doppler waveforms are demonstrated in the posterior tibial artery and dorsalis pedis artery. 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
#History of Respiratory distress
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
-should have PFTs and further work up done outpatient
-f/u pulm outpatient
#Ischemic cardiomyopathy, chronic HFrEF
�Continue home GDMT as tolerated
-ARB not listed on home medications, although patient was discharged on ARB in October 2023
#History of Transaminitis
#DM II
Yes, LLE cellulitis is related to/associated with Diabetes along with his ASPVD
-Sliding scale insulin
-Depending on trends, add on home long-acting and short-acting Insulin
#Recent NSTEMI
#CAD
- recent angioplasty and partially successful treatment with shockwave IVL reducing distal left main/ostial circumflex stenosis from 95% to 30-40% severity 11/22/23
- Successful PCI with JUAN RAMON to the RUBI-LAD touchdown 11/25/23
- DAPT ASA/Plavix continued, continue BB, ARB
- Cardiac rehab as outpatient
a1c 6.9%
#Tachyarrhythmia due to new onset atrial fibrillation with RVR - now rate controlled, currently in NSR
#MV-CAD s/p CABG with Hx of PCI x3
#GERD
#DM type II
#Hypertension
#Hyperlipidemia
#Mild aortic stenosis
#CKD
#History of ambulatory dysfunction due to arthritis of right knee
Discussed with Dr. Bailey, should follow up with Podiatry at [facility]
Reviewed with Reyna, 01/16, janett, plan to dc to [facility] once prior auth received.
Input from Dr. Correa appreciated: 88 year old male POD#1 Left lower extremity arteriogram with third order vessel catheterization of left anterior tibial artery via right common femoral artery puncture, Balloon angioplasty of left anterior tibial
artery with 2.5 mm and 3 mm angioplasty balloon, Shockwave IVL (intravascular lithotripsy) angioplasty of left anterior tibial artery (limited due to inability to pass catheter) with 3 mm IVL balloon catheter
DVT Prophylaxis: Heparin
Code Status: Full Code
dc to [facility]
see dictated note
More than 30 minutes spent in discharge including
Final examination of the patient
Summarizing hospital stay
Instructions for continuing care to all relevant caregivers
Preparation of discharge records, prescriptions, and referral forms
Total time spent (in minutes): 50
Anticipated Discharge: Today
Subjective/Interval History
-
Date of Service: January 18, 2024
Awake, alert
Objective Data
-
Vital Signs:
Vital Signs
Temp Pulse Resp BP Pulse Ox
98.1 F 84 16 105/62 96
01/18/24 07:30 01/18/24 12:59 01/18/24 07:30 01/18/24 12:59 01/18/24 07:30
I&O
01/17/24 01/18/24 01/19/24
06:59 06:59 06:59
Intake Total 840 / 840 1080 / 1080
Balance 840 / 840 1080 / 1080
Review of Systems
-
History Source: Patient and Coordinated Provider
Constitutional: Denies Fever
EENT: Reports No Symptoms Reported
Respiratory: Reports No Symptoms
Cardiac: Reports No Symptoms
Abdomen/GI: Reports No Symptoms
Genitourinary: Reports No Symptoms
Physical Exam
-
General: Well Developed, Well Nourished and No Apparent Distress
HEENT: Normocephalic, Atraumatic, Moist Mucous Membranes and Hearing Impaired
Respiratory: Clear to Auscultation; Negative Wheezes, Rales or Rhonchi
Cardiac: Regular Rhythm and S1/S2
GI: Soft, Nontender and Nondistended
Musculoskeletal: No Clubbing, No Cyanosis, No Edema and Other (significant muscle wasting of bilateral LE)
Skin: Warm, Dry and Rash (left lower extremity cellulitis)
Neuro: Awake and Alert
[2024-01-18 15:32] VITALS: BP 104/61
--- NOTE | 2024-01-18 16:25 | W.DS.TRANS ---
DC Summary - [employer] Work[employer]
-
Discharge Instructions:
Discharge Diagnosis/Procedures Left Lower Extremity Cellulitis, non healing
left heel ulcer, ASPVD
Diet Regular
Activity With assistance
Driving Restrictions No driving
Bathing Restrictions None
Blood Work CBC, BMP
Instructions:
Stand-Alone Forms:
Changes to Home Medications: Yes
Discharge Medications:
DC Medications w/original date entered in [facility]
acetaminophen 325 mg tablet (Tylenol) 650 mg PO Q6HPRN PRN mild pain 11/22/23
atorvastatin 40 mg tablet 40 mg PO HS High Cholesterol 11/22/23
clopidogrel 75 mg tablet 75 mg PO DAILY Blood Clot Prevention/Tx 11/22/23
insulin aspart U-100 100 unit/mL (3 mL) subcutaneous pen (Novolog FlexPen U-100 Insulin aspart) 10 unit SC AC Diabetes 11/22/23
insulin degludec 100 unit/mL (3 mL) subcutaneous pen (Tresiba FlexTouch U-100 insulin) 15 unit SC HS Diabetes 11/22/23
multivitamin 1 tab PO DAILY Supplement 11/22/23
pantoprazole 20 mg tablet,delayed release 20 mg PO DAILY Gastrointestinal Issue 11/22/23
aspirin 81 mg chewable tablet 81 mg PO DAILY Blood Clot Prevention/Tx 01/11/24
bisacodyl 10 mg rectal suppository (Dulcolax (bisacodyl)) 10 mg MO DAILYPRN PRN if no bm on 3rd day 01/11/24
furosemide 40 mg tablet (Lasix) 60 mg PO DAILY Fluid Retention/Swelling 01/11/24
lidocaine 5 % topical patch 1 patch topical DAILY pain 01/11/24
magnesium hydroxide 400 mg/5 mL oral suspension (Milk of Magnesia) 2,400 mg PO HSPRN PRN constipation 01/11/24
magnesium oxide 500 mg PO BID Supplement 01/11/24
metoprolol succinate 25 mg tablet,extended release 24 hr 12.5 mg PO BID Blood Pressure 01/11/24
midodrine 2.5 mg tablet 2.5 mg PO TID Blood Pressure 01/11/24
silver sulfadiazine 1 % topical cream (Silvadene) 1 applic topical DAILY Skin Issues 01/11/24
sodium phosphates 19 gram-7 gram/118 mL enema (Fleet Enema) 118 ml MO DAILYPRN PRN if no bm aftr dulcolax 01/11/24
cephalexin 500 mg capsule 1,000 mg (2 x 500 mg) PO Q8H #20 caps 01/18/24
Home Medication Changes
Keflex through 01/20
Pending Results: No
[2024-01-18 16:34] LABS: Glucose - Point of Care 194 mg/dl (70-99)
[2024-01-18] MEDS: NOVOLOG FLEXPEN-LOW RESISTANCE 1 UNITS SC (17:50)
[2024-01-18] MEDS: LIPITOR 40 MG PO (17:50)
[2024-01-18] MEDS: FLUAD (65 yr+) 2024-2025 FORMULA 0.5 ML IM (17:51)
== END 2024-01-18 19:12 | DRG 279 ==
LOC: 4 WEST ACU 18:15
PROVIDERS: Nurse Practitioner; Specialist; Surgery Vascular Surgery; ADMITTING PHYSICIAN Internal Medicine; ATTENDING PHYSICIAN Internal Medicine; CONSULT PHYSICIAN Internal Medicine Cardiovascular Disease; CONSULT PHYSICIAN Internal Medicine Infectious Disease; CONSULT PHYSICIAN Podiatrist Primary Podiatric Medicine; CONSULT PHYSICIAN Specialist; EMERGENCY PHYSICIAN Student in an Organized Health Care Education/Training Program; FAMILY PHYSICIAN Family Medicine; OTHER PHYSICIAN Nurse Practitioner Acute Care
PROC: 04FQ3ZZ Fragmentation of Left Anterior Tibial Artery, Percutaneous Approach (ICD-10-PCS; 2024-01-15)
PROC: 047Q3ZZ Dilation of Left Anterior Tibial Artery, Percutaneous Approach (ICD-10-PCS; 2024-01-15)
DX: E11.51 Type 2 diabetes mellitus with diabetic peripheral angiopathy without gangrene (principal); L03.116 Cellulitis of left lower limb; L97.429 Non-pressure chronic ulcer of left heel and midfoot with unspecified severity; I13.0 Hypertensive heart and chronic kidney disease with heart failure and stage 1 through stage 4 chronic kidney disease, or unspecified chronic kidney disease; I50.22 Chronic systolic (congestive) heart failure; E87.3 Alkalosis; J84.9 Interstitial pulmonary disease, unspecified; I70.244 Atherosclerosis of native arteries of left leg with ulceration of heel and midfoot; E11.22 Type 2 diabetes mellitus with diabetic chronic kidney disease; I25.5 Ischemic cardiomyopathy; N18.31 Chronic kidney disease, stage 3a; I48.0 Paroxysmal atrial fibrillation
CPT/HCPCS: 73630; 73720; 75625; 75716; 80048; 80053; 80202; 82962; 83036; 85025; 85027; 87070; 87071; 87147; 87186; 87205; 93005; 93306; 93922; 93925; 93926; 93971; 96374; 97163; 97166; 97530; 97535; 99285; A9575; C1725; C1769; C1887; C1894; C9772; Q9950; Q9967